=== PATIENT | female | born 1995 | race Caucasian/White ===

== ENCOUNTER 2018-09-08 14:16 | Emergency (ER) | payer MEDICAID, SELFPAY ==
[2018-09-08 14:16] VITALS: BP 153/85; PULSE 85; RESP 16; TEMP 36.4; O2SAT 100; BMI 54.3
--- NOTE | 2018-09-08 14:33 | ED.VISSUMM ---
- ER Visit Summary Date of Service: 09/08/18 Chief Complaint: [Pain, redness, swelling to left ring finger] History of Present Illness: The patient is a 23 F [Zentz to the emergency department swelling to her left ring finger that occurred starting last evening. Patient states that she was cutting the grass and she was reaching underneath a mower deck to unclog it when she kept getting poked with what she thought were sticks. Patient washed her hands afterwards and noted that she had some which she thought was may be a small hangnail that she picked that and pulled off. Patient had discomfort since that time. She denies any fevers. Not sure her last tetanus shot.] Physical Examination: [Left hand-patient has early evidence of paronychia to the medial aspect of the fingernail with faint erythema noted there is no abscess or purulent drainage from the nail noted. Neurovascular intact. No bony tenderness on exam. No lymphocytic streaking.] Test Results: [None indicated] Emergency Department Course and Treatment: [Patient was started on Keflex] Treatment Plan: [Patient to follow-up with primary care physician government relations manager for no doc within the next 3 to 5 days For a wound check.] Patient started on Keflex Disposition: [Discharged home in stable condition] Impression: [Paronychia left ring finger] This note was generated with [employer] dictation software. It may contain incorrect words, spelling, and punctuation that were not noted in review of the chart prior to signing ED Disposition - Plan for ED Patient: Referrals: Care Physician,No Primary [Primary Care Provider] -
--- NOTE | 2018-09-08 14:36 | ED.DCSUM_ITS ---
- ER Visit Summary Date of Service: 09/08/18 Chief Complaint: [Pain, redness, swelling to left ring finger] History of Present Illness: The patient is a 23 F [Zentz to the emergency department swelling to her left ring finger that occurred starting last evening. Patient states that she was cutting the grass and she was reaching underneath a mower deck to unclog it when she kept getting poked with what she thought were sticks. Patient washed her hands afterwards and noted that she had some which she thought was may be a small hangnail that she picked that and pulled off. Patient had discomfort since that time. She denies any fevers. Not sure her last tetanus shot.] Physical Examination: [Left hand-patient has early evidence of paronychia to the medial aspect of the fingernail with faint erythema noted there is no abscess or purulent drainage from the nail noted. Neurovascular intact. No bony tenderness on exam. No lymphocytic streaking.] Test Results: [None indicated] Emergency Department Course and Treatment: [Patient was started on Keflex] Treatment Plan: [Patient to follow-up with primary care physician websphere commerce consultant for no doc within the next 3 to 5 days For a wound check.] Patient started on Keflex Disposition: [Discharged home in stable condition] Impression: [Paronychia left ring finger] This note was generated with [employer] dictation software. It may contain incorrect words, spelling, and punctuation that were not noted in review of the chart prior to signing ED Disposition - Plan for ED Patient: Referrals: Care Physician,No Primary [Primary Care Provider] -
--- NOTE | 2018-09-08 14:36 | ED.DEP ---
ED Disposition - Plan for ED Patient: Instructions: ED Fingernail Infec Prescriptions: Cephalexin [Keflex] 500 mg PO Q6 #40 cap Referrals: Care Physician,No Primary [Primary Care Provider] - Marli Nolan MD [STAFF PHYSICIAN] - 3-5 Days
[2018-09-08] MEDS: Cephalexin 250 MG Capsule 500 MG PO (14:41)
== END 2018-09-08 14:42 | disposition home or self-care (01) ==
PROVIDERS: Emergency Provider Emergency Medicine
DX: L03.012 Cellulitis of left finger (principal); Z72.0 Tobacco use
CPT/HCPCS: 99283

== ENCOUNTER 2018-12-02 14:23 | Emergency (ER) | payer MEDICAID, SELFPAY ==
[2018-12-02 14:24] VITALS: BP 155/84; PULSE 99; RESP 16; TEMP 36.6; O2SAT 98; BMI 57.3
[2018-12-02 15:38] VITALS: PULSE 86; RESP 16; O2SAT 99
--- NOTE | 2018-12-02 15:56 | RAD_ITS ---
STUDY: X-RAY CHEST REASON FOR EXAM: Female, 23 years old. Palpitations TECHNIQUE: Portable chest COMPARISON: None. FINDINGS: The lungs are clear and expanded. There is no demonstrated pleural abnormality. Normal size heart. Normal mediastinum and ron. Normal visualized pulmonary arteries. Normal visualized aortic arch and descending thoracic aorta. Normal visualized thoracic spine. Normal visualized ribs, clavicles, and shoulders. There is no demonstrated abnormality of the visualized soft tissue structures of the upper abdomen. RAD/Chest 1 View (Portable) IMPRESSION: Normal x-ray examination of the chest. Electronically Signed: Scot Farley, at 16:20 EDT Tel , Service support ,
--- NOTE | 2018-12-02 15:57 | EKG12_ITS ---
Test Reason : PALPTATIONS Blood Pressure : / mmHG Vent. Rate : 078 BPM Atrial Rate : 078 BPM P-R Int : 176 ms QRS Dur : 102 ms QT Int : 366 ms P-R-T Axes : 033 061 059 degrees QTc Int : 417 ms Normal sinus rhythm with sinus arrhythmia Normal ECG Confirmed by ARAVIND CRENSHAW, TOBI ([id number]), editorial writer STEPHENIE UNDERWOOD ([id number]) on 12/06/2018 10:29:16 AM Referred By: Confirmed By:TOBI NAZARIO MD
--- NOTE | 2018-12-02 15:57 | ED.VISSUMM ---
- ER Visit Summary Date of Service: 12/02/18 Chief Complaint: Palpitations History of Present Illness: The patient is a 23 F presenting with palpitations. Patient states that she has had intermittent episodes of feeling like her heart is skipping a beat over the past 2 months. She states she has episodes lasting up to 30 seconds. She has chest pain and shortness of breath associated with this. She states the chest pain only lasts 30 seconds. She states that typically occurs at rest. She denies fever or cough. Denies increased caffeine intake. She denies syncope. Denies other complaints. Physical Examination: Vitals are stable. Patient is afebrile. Alert no acute distress. HEENT exam is unremarkable. Neck is supple. Lungs are clear and equal bilaterally. Heart is regular rate and rhythm. Abdomen is soft nontender nondistended. Extremities are unremarkable. Skin is warm and dry. No focal neurologic deficit. Remainder of exam is unremarkable. Emergency Department Course and Treatment: EKG is sinus rhythm rate of 78 with no acute ischemic changes. Chest x-ray shows no acute process. CBC, chemistries unremarkable. Troponin is negative. D-dimer normal. hCG negative. TSH 4.5. Patient is advised to follow-up with primary care physician. Advised return to ED for worsening complaints. Disposition: Discharge home Impression: Palpitations This note was generated with [employer] dictation software. It may contain incorrect words, spelling, and punctuation that were not noted in review of the chart prior to signing ED Disposition - Plan for ED Patient: Instructions: Palpitations Referrals: Kye Covington MD [STAFF PHYSICIAN] -
[2018-12-02 16:04] LABS: Absolute Lymphocyte Count 2.46 X10^3/uL (0.83-4.51); Basophil# 0.03 X10^3/uL; Basophil% 0.3 % (0-1); Eosinophil# 0.22 X10^3/uL; Eosinophils% 2.4 % (0-5); Hematocrit 37.5 % (37-47); Hemoglobin 12.1 g/dL (12.0-15.0); Internal QC Validated? YES +Cl - CLEAR BKGD; Lymphocyte # 2.46 X10^3/ul (4.0); Lymphocyte % 26.7 % (19-41); Mean Corp Hgb Conc 32.3 g/dL (32-36); Mean Corpuscular Hgb 26.8 pg (27.0-32.0); Mean Corpuscular Volume 83.1 fL (81-99); Mean Platelet Vol. 8.9 fl (6.2-12.0); Monocyte# 0.49 X10^3/uL; Monocyte% 5.3 % (0-10); NRBC Flagged by Analyzer 0 % (0-5); Neutrophil # 5.96 X10^3/uL (2.7-7.7); Neutrophil % 64.9 % (47-70); Platelet Count 382 K/mm3 (150-450); RBC Distribution Width CV 15.9 % (11.6-14.6); RBC Distribution Width SD 48.2 fl (35.1-43.9); Red Blood Count 4.51 M/mm3 (4.2-5.4); White Blood Count 9.2 K/mm3 (4.4-11.0)
[2018-12-02 16:09] LABS: Pregnancy, Serum, hCG Quali. NEGATIVE Negative
[2018-12-02 16:23] LABS: Anion Gap 7 (5-15); BUN 17 mg/dL (7-18); BUN/Creat Ratio 23.8 RATIO (10-20); Calcium,Total 8.9 mg/dL (8.5-10.1); Chloride 106 mmol/L (98-107); Creatinine, Serum 0.72 mg/dL (0.55-1.02); EST Glomerular Filtration Rate 109 mL/min (>60); Est Glom Filt Rate - Afr Amer 132 mL/min (>60); Estimated Creatinine Clearance 111.22 ml/min; Glucose 110 mg/dL (74-106); Potassium 3.6 mmol/L (3.5-5.1); Sodium Level 140 mmol/L (136-145); Thyroid Stim Hormone (TSH) 4.55 uIU/mL (0.358-3.74)
[2018-12-02 16:32] LABS: D-Dimer Quantitative (DVT/PE) 0.33 FEU/ug/m (0.27-0.49)
--- NOTE | 2018-12-02 17:24 | ED.DEP ---
ED Disposition - Plan for ED Patient: Instructions: Palpitations Referrals: Kye Covington MD [STAFF PHYSICIAN] -
[2018-12-02 17:42] VITALS: BP 145/67; PULSE 83; RESP 16; O2SAT 98
[2018-12-02 17:47] LABS: Color, Urine Yellow (Yellow); Glucose, Dipstick Normal (Normal); Ketone-Dipstick Negative (Negative); Leukocyte Esterase-Dipstick 500 /ul (Negative); Nitrite-Dipstick Negative (Negative); Occult Blood-Urine 250 /ul (Negative); Protein-Dipstick 15 mg/dl (Negative); Specific Gravity, Urine 1.025 (1.002-1.030); Urine Bilirubin Dipstick Negative (Negative); Urine Clarity Cloudy (Clear); Urine Urobilinogen Normal (Normal)
[2018-12-02 17:52] LABS: White Blood Cells 10-25 SEEN /hpf (0-5)
[2018-12-02 17:53] LABS: Bacteria 1+ /hpf (None Seen); Mucous, Urine 1+ /hpf (<or=2+); Red Blood Cells-Urine 0-5 SEEN /hpf (0-5); Squamous Epithelial Cells - UA 5-10 SEEN /hpf (5-10)
--- NOTE | 2018-12-02 18:02 | ED.DEP ---
ED Disposition - Plan for ED Patient: Instructions: Palpitations, Understanding Urinary Tract Infections (UTIs) Prescriptions: Smz/Tmp Ds [Bactrim Ds] 1 tablet PO BID #14 tablet Referrals: Kye Covington MD [STAFF PHYSICIAN] -
[2018-12-02] MEDS: Smz/Tmp Ds Tablet 1 TABLET PO (18:08)
== END 2018-12-02 18:09 | disposition home or self-care (01) ==
LOC: ED 16:10
PROVIDERS: Emergency Provider Emergency Medicine
DX: R00.2 Palpitations (principal); N39.0 Urinary tract infection, site not specified; R07.9 Chest pain, unspecified; R06.00 Dyspnea, unspecified; F32.9 Major depressive disorder, single episode, unspecified; F31.9 Bipolar disorder, unspecified; F41.9 Anxiety disorder, unspecified; F43.10 Post-traumatic stress disorder, unspecified; Z79.899 Other long term (current) drug therapy; Z72.0 Tobacco use
CPT/HCPCS: 71045; 80048; 81001; 84443; 84484; 84703; 85025; 85379; 93005; 99285; A4216

== ENCOUNTER → 2018-12-05 | Outpatient (CLI) | payer MEDICAID, SELFPAY ==
[2018-12-05 12:59] VITALS: BMI 51.5
[2018-12-05 16:20] LABS: Bacteria 0 SEEN /hpf (None Seen); Mucous, Urine 0 SEEN /hpf (<or=2+); Red Blood Cells-Urine 0 SEEN /hpf (0-5)
[2018-12-05 16:48] LABS: Color, Urine Yellow (Yellow); Glucose, Dipstick Normal (Normal); Ketone-Dipstick Negative (Negative); Leukocyte Esterase-Dipstick 100 /ul (Negative); Nitrite-Dipstick Negative (Negative); Occult Blood-Urine Negative /ul (Negative); Protein-Dipstick Negative (Negative); Urine Bilirubin Dipstick Negative (Negative); Urine Clarity Clear (Clear); Urine Urobilinogen Normal (Normal)
[2018-12-05 16:59] LABS: Squamous Epithelial Cells - UA 0-5 SEEN /hpf (5-10); White Blood Cells 0-5 SEEN /hpf (0-5)
[2018-12-05 17:00] LABS: Amorphous Sediment 1+
== END | disposition home or self-care (01) ==
LOC: LABSPEC 15:44
PROVIDERS: Family Provider Internal Medicine; PCP Internal Medicine; Referring Provider Internal Medicine; Visit Provider Internal Medicine
DX: N39.0 Urinary tract infection, site not specified (principal)
CPT/HCPCS: 81001; 87086

== ENCOUNTER → 2019-01-04 15:00 | Outpatient (CLI) | payer MEDICAID, SELFPAY ==
[2019-01-04 15:34] VITALS: BMI 51.5
[2019-01-05 10:24] LABS: Mucous, Urine 0 SEEN /hpf (<or=2+)
[2019-01-05 12:20] LABS: Color, Urine Yellow (Yellow); Glucose, Dipstick Normal (Normal); Ketone-Dipstick Negative (Negative); Leukocyte Esterase-Dipstick 500 /ul (Negative); Nitrite-Dipstick Negative (Negative); Occult Blood-Urine 250 /ul (Negative); Protein-Dipstick Negative (Negative); Specific Gravity, Urine 1.005 (1.002-1.030); Urine Bilirubin Dipstick Negative (Negative); Urine Clarity Clear (Clear); Urine Urobilinogen Normal (Normal); Urine pH 6.5 (5.0 - 8.0)
[2019-01-05 12:28] LABS: Red Blood Cells-Urine 0-5 SEEN /hpf (0-5); White Blood Cells 0-5 SEEN /hpf (0-5)
[2019-01-05 12:29] LABS: Bacteria 1+ /hpf (None Seen); Squamous Epithelial Cells - UA 0-5 SEEN /hpf (5-10)
== END ==
PROVIDERS: Family Provider Internal Medicine; PCP Internal Medicine; Visit Provider Internal Medicine
DX: R30.0 Dysuria (principal)
CPT/HCPCS: 81001; 87086; 87088

== ENCOUNTER → 2019-01-18 09:53 | Outpatient (CLI) | payer MEDICAID, SELFPAY ==
[2019-01-18 09:36] VITALS: BMI 51.5
[2019-01-18 12:14] LABS: Absolute Lymphocyte Count 2.51 X10^3/uL (0.83-4.51); Absolute Neutrophil Count 3.8 X10^3/uL (2.0-7.7); Basophil# 0.03 X10^3/uL; Basophil% 0.4 % (0-1); Eosinophil# 0.24 X10^3/uL; Eosinophils% 3.4 % (0-5); Hematocrit 38.9 % (37-47); Lymphocyte # 2.51 X10^3/ul (4.0); Lymphocyte % 35.5 % (19-41); Mean Corp Hgb Conc 30.8 g/dL (32-36); Mean Corpuscular Hgb 26.3 pg (27.0-32.0); Mean Corpuscular Volume 85.1 fL (81-99); Monocyte# 0.48 X10^3/uL; Monocyte% 6.8 % (0-10); NRBC Flagged by Analyzer 0 % (0-5); Neutrophil % 53.6 % (47-70); Platelet Count 383 K/mm3 (150-450); RBC Distribution Width CV 15.2 % (11.6-14.6); RBC Distribution Width SD 47.4 fl (35.1-43.9); Red Blood Count 4.57 M/mm3 (4.2-5.4); White Blood Count 7.1 K/mm3 (4.4-11.0)
[2019-01-18 12:48] LABS: Hemoglobin A1c 5.8 % (4.2-6.3); T4 Free Direct 0.99 ng/dL (0.76-1.46); Thyroid Stim Hormone (TSH) 7.73 uIU/mL (0.358-3.74)
== END ==
PROVIDERS: Family Provider Internal Medicine; PCP Internal Medicine; Visit Provider Internal Medicine
DX: F31.9 Bipolar disorder, unspecified (principal); N39.0 Urinary tract infection, site not specified; R73.9 Hyperglycemia, unspecified; R94.6 Abnormal results of thyroid function studies
CPT/HCPCS: 36415; 83036; 84439; 84443; 85025; 87086; 87088

== ENCOUNTER → 2019-02-07 13:40 | Outpatient (CLI) | payer MEDICAID, SELFPAY ==
[2018-12-05 12:59] VITALS: BMI 51.5
[2019-01-18 09:36] VITALS: BMI 51.5
--- NOTE | 2019-02-07 13:42 | US_ITS ---
STUDY: ULTRASOUND BREAST - LEFT REASON FOR EXAM: Female, 23 years old. TECHNIQUE: Axial and longitudinal images of the LEFT breast were performed with a high resolution ultrasound transducer. COMPARISON: None. FINDINGS: LEFT Breast: There is a lesion in the superior medial quadrant of the left breast which represents focal fibrocystic change and dilated ducts with some increased vascularity. No underlying malignant mass or lesion is seen.. US/Breast Limited Unilateral IMPRESSION: The palpable density in the left breast represents a combination of dilated ducts and increased vascularity and fibrocystic change but no underlying suspicious mass or lesion is seen. ASSESSMENT CATEGORY: BIRADS Category 2: Benign. A letter regarding these results will be sent to the patient by the facility within 30 days. Electronically Signed: Ciro Solis, at 17:38 EDT Tel , Service support ,
== END ==
PROVIDERS: Family Provider Internal Medicine; PCP Internal Medicine; Referring Provider Internal Medicine; Visit Provider Internal Medicine
DX: N64.4 Mastodynia (principal); N63.10 Unspecified lump in the right breast, unspecified quadrant; N63.20 Unspecified lump in the left breast, unspecified quadrant
CPT/HCPCS: 76642

== ENCOUNTER 2019-02-16 15:06 | Emergency (ER) | payer MEDICAID, SELFPAY ==
[2019-01-18 09:36] VITALS: BMI 51.5
[2019-02-16 15:08] VITALS: BP 158/111; PULSE 103; RESP 18; TEMP 36; O2SAT 98; BMI 58.4
--- NOTE | 2019-02-16 15:39 | ED.DCSUM_ITS ---
History of Present Illness Chief Complaint: Vag Bleeding Informant: Patient Onset: Days - Onset 6 days ago February 04 Context: Sudden Onset Timing: Continuous Quality: Pain and bleeding Location: Suprapubic and vaginal Current Severity: Moderate Maximum Severity: Moderate Worsened by: Nothing specific Relieved by: Nothing Associated Symptoms: Nothing Narrative: Patient is a 23-year-old G0, P0 female who has irregular periods who presents with vaginal bleeding since February 11. She states she leaned against the counter. She experienced pain. She felt like something moved and tore. She is had bleeding since. She states she has used 6 pads since this morning. She used 8 pads yesterday and 10 pads a day before. She has noted clots. She does report breast tenderness. She states she has breast tenderness because of cysts that were determined to be benign. She denies nausea, vomiting diarrhea. She does report intermittent dysuria felt to be secondary to overactive bladder. She denies any bowel symptoms. Did report orthostatic symptoms when she nando from sitting to standing position quickly. Prior similar symptoms: No Recent Illness/Hospitalization: No - Past Medical History (1) Overactive bladder Status: Acute (2) Anxiety Status: Chronic (3) Bipolar 1 disorder Status: Chronic (4) PTSD (post-traumatic stress disorder) Status: Chronic Past Medical History - Allergies and Home Meds Allergies/Adverse Reactions: Allergies lithium Adverse Reaction (Severe, Verified 02/16/19 15:07) lightheaded aripiprazole [From Abilify] Adverse Reaction (Mild, Verified 02/16/19 15:07) nightmares Primary Care Physician: Kye Covington MD [Primary Care Provider] - Prior records reviewed: Yes Surgical History: no surgical history Lives: With Family Smoking Status: Current every day smoker Alcohol: Rare Drugs: None - Family History Maternal Family History: Family History (Last Updated 12/05/18 @ 12:57 by Maude Rodriguez) Other Alcoholism Anxiety and depression Arthritis Asthma Breast cancer COPD (chronic obstructive pulmonary disease) CVA (cerebral vascular accident) Diabetes Heart disease Hyperlipemia Hypertension Melanoma Myocardial infarction Seizures Family History: Reports: - - she can't think of them now Paternal Family History: Family History (Last Updated 12/05/18 @ 12:57 by Maude Rodriguez) Other Alcoholism Anxiety and depression Arthritis Asthma Breast cancer COPD (chronic obstructive pulmonary disease) CVA (cerebral vascular accident) Diabetes Heart disease Hyperlipemia Hypertension Melanoma Myocardial infarction Seizures Family History: Reports: - - she can't think of them now Review of Systems General: Denies: Chills, Fever, Sweats Eyes: Denies: Visual changes - bilaterally, Blurred Vision - bilaterally, Diplopia ENT: Denies: Rhinorrhea, Sore throat Cardiovascular: Denies: Chest pain, Palpitations Respiratory: Denies: Dyspnea, Cough, Dyspnea on exertion Gastrointestinal: Reports: Abdominal pain - Region and right and left inguinal region. Patient states the inguinal discomfort secondary to ovarian cyst.. Denies: Nausea, Vomiting, Constipation, Melena, Hematochezia Genitourinary: Reports: Dysuria. Denies: Hematuria, Frequency Musculoskeletal: Denies: Back pain, Extremity Pain Skin: Denies: Rash, Wounds Neurological: Denies: Headache, Weakness, Numbness Psych: Reports: Depression Hematologic: Reports: Easy bruising. Denies: Easy bleeding Physical Exam Vital Signs/Narrative: Vital Signs Temp Pulse Resp BP Pulse Ox 02/16/19 15:08 96.8 F L 103 H 18 158/111 H 98 Inital Vital Signs reviewed: Yes General: Well nourished, Well developed, Obese, No Acute Distress Head: Normocephalic, Atraumatic Eyes: Perrl, EOMI. Negative for: Pale conjunctiva, Scleral icterus ENT: Moist mucous membranes, No rhinorrhea Neck: Supple, Nontender, No lymphadenopathy, No JVD Cardiovascular: Regular rate, Regular rhythm, No murmurs, Normal S1, Normal S2 Respiratory: No distress, CTA bilaterally, Chest nontender Abdomen: Soft, Nontender, Nondistended, Normal bowel sounds Back: Nontender, Normal Inspection Extremities: Nontender, No edema Skin: Normal color, No rash, Trauma - Multiple bruises are noted. Negative for: Cyanosis, Diaphoresis, Jaundice Neurological: Alert, Oriented x3, Cranial nerves II-XII grossly intact, Normal Strength, Normal Sensation Psychological: Normal affect Diagnostic/Tx/Re-eval Laboratory Results 02/16/19 02/16/19 16:00 16:00 WBC 8.4 RBC 4.39 Hgb 11.6 L Hct 36.7 L MCV 83.6 MCH 26.4 L MCHC 31.6 L RDW Std Deviation 46.3 H RDW Coeff of Edmund 15.2 H Plt Count 387 MPV 8.5 Immature Gran % (Auto) 0.500 Neut % (Auto) 66.3 Lymph % (Auto) 24.0 Rincon % (Auto) 6.2 Eos % (Auto) 2.5 Baso % (Auto) 0.5 Absolute Neuts (auto) 5.6 Absolute Lymphs (auto) 2.02 Nucleated RBC % 0 Serum , Qual NEGATIVE H&H is slightly low. test is negative. Prior hemoglobin was 12. This is insignificant and within lab error. - Medical Decision Making Function diagnosis abnormal vaginal bleeding, threatened AB, missed AB, cervical polyp. Because she complained of orthostatic symptoms will obtain H&H and will perform pelvic exam. Serum test was ordered. If test is positive or if there is any abnormality noted on bimanual exam will obtain ultrasound. Patient was informed of her results. She was informed to keep her appointment with Dr. Meagan Vázquez scheduled for 10 AM February 20 ED Disposition - Plan for ED Patient: Disposition: Home or Assisted Living Diagnosis: Abnormal vaginal bleeding Instructions: Dysfunctional Uterine Bleeding Referrals: Kye Covington MD [Primary Care Provider] - Additional Instructions: Keep your scheduled appointment with Dr. Meagan Vázquez for February 20, at 10 AM.
[2019-02-16 16:23] LABS: Absolute Lymphocyte Count 2.02 X10^3/uL (0.83-4.51); Absolute Neutrophil Count 5.6 X10^3/uL (2.0-7.7); Basophil# 0.04 X10^3/uL; Basophil% 0.5 % (0-1); Eosinophil# 0.21 X10^3/uL; Eosinophils% 2.5 % (0-5); Hematocrit 36.7 % (37-47); Hemoglobin 11.6 g/dL (12.0-15.0); Lymphocyte # 2.02 X10^3/ul (4.0); Mean Corp Hgb Conc 31.6 g/dL (32-36); Mean Corpuscular Hgb 26.4 pg (27.0-32.0); Mean Corpuscular Volume 83.6 fL (81-99); Mean Platelet Vol. 8.5 fl (6.2-12.0); Monocyte# 0.52 X10^3/uL; Monocyte% 6.2 % (0-10); NRBC Flagged by Analyzer 0 % (0-5); Neutrophil # 5.59 X10^3/uL (2.7-7.7); Neutrophil % 66.3 % (47-70); Platelet Count 387 K/mm3 (150-450); RBC Distribution Width CV 15.2 % (11.6-14.6); RBC Distribution Width SD 46.3 fl (35.1-43.9); Red Blood Count 4.39 M/mm3 (4.2-5.4); White Blood Count 8.4 K/mm3 (4.4-11.0)
[2019-02-16 16:59] LABS: Internal QC Validated? YES +Cl - CLEAR BKGD; Pregnancy, Serum, hCG Quali. NEGATIVE Negative
[2019-02-16 17:07] VITALS: BP 114/67; PULSE 78; RESP 18; O2SAT 99
== END 2019-02-16 17:30 | disposition home or self-care (01) ==
PROVIDERS: Emergency Provider Emergency Medicine; Family Provider Internal Medicine; PCP Internal Medicine
DX: N93.9 Abnormal uterine and vaginal bleeding, unspecified (principal); N64.59 Other signs and symptoms in breast; R10.31 Right lower quadrant pain; R10.32 Left lower quadrant pain; E66.9 Obesity, unspecified; T14.8XXA Other injury of unspecified body region, initial encounter; X58.XXXA Exposure to other specified factors, initial encounter; Y93.9 Activity, unspecified; Y92.9 Unspecified place or not applicable; N32.81 Overactive bladder; F41.9 Anxiety disorder, unspecified; F31.9 Bipolar disorder, unspecified; F32.9 Major depressive disorder, single episode, unspecified; F43.10 Post-traumatic stress disorder, unspecified; Z79.899 Other long term (current) drug therapy; F17.200 Nicotine dependence, unspecified, uncomplicated
CPT/HCPCS: 84703; 85025; 99283; A4216

== ENCOUNTER → 2019-02-19 15:03 | Outpatient (CLI) | payer MEDICAID, SELFPAY ==
[2019-02-16 15:08] VITALS: BMI 58.4
[2019-02-19 16:52] LABS: Thyroid Stim Hormone (TSH) 2.52 uIU/mL (0.358-3.74)
== END ==
PROVIDERS: Family Provider Internal Medicine; PCP Internal Medicine; Referring Provider Internal Medicine; Visit Provider Internal Medicine
DX: E03.9 Hypothyroidism, unspecified (principal)
CPT/HCPCS: 36415; 84443

== ENCOUNTER → 2019-02-20 12:37 | Outpatient (CLI) | payer MEDICAID, SELFPAY ==
[2019-02-20 09:59] VITALS: BMI 58.4
[2019-02-20 16:15] LABS: Chlamydia Trachomatis by PCR Negative (Negative); Neisserai gonorrhoeae by PCR Negative (Negative); Probe Check PASS; Sample Adequacy Control PASS; Specimen Processing Control PASS
[2019-02-22 15:35] LABS: HPV Reflexed? NOT INDICATED
== END ==
PROVIDERS: Family Provider Internal Medicine; PCP Internal Medicine; Referring Provider Nurse Practitioner Women's Health; Visit Provider Nurse Practitioner Women's Health
DX: Z11.3 Encounter for screening for infections with a predominantly sexual mode of transmission (principal); Z12.4 Encounter for screening for malignant neoplasm of cervix
CPT/HCPCS: 87491; 87591; 88175; G0145

== ENCOUNTER → 2019-03-02 13:14 | Outpatient (CLI) | payer MEDICAID, SELFPAY ==
[2019-02-20 09:59] VITALS: BMI 58.4
--- NOTE | 2019-03-02 13:16 | US_ITS ---
STUDY: ULTRASOUND OF THE FEMALE PELVIS - COMPLETE REASON FOR EXAM: Female, 24 years old. Menorrhagia TECHNIQUE: Transabdominal and Transvaginal TECHNICAL QUALITY: Adequate. COMPARISON: None. FINDINGS: The uterus is anteverted and is in a midline position. The uterus measures 7.7 x 5.0 x 4.4 cm. There is a Nabothian cyst of the cervix. The endometrium measures 5 mm in thickness, and is hyperechoic. There is no demonstrated endometrial mass. There is no demonstrated myometrial mass. The right ovary is visualized. The right ovary measures 3.4 x 2.2 x 2.1 cm. There is no right ovarian cyst or ovarian mass. There is no visualized right adnexal mass or complex lesion. There is normal arterial and normal venous vascularity. The left ovary is visualized. The left ovary measures 2.7 x 2.7 x 1.6 cm. There is no left ovarian cyst or ovarian mass. There is no visualized left adnexal mass or complex lesion. There is normal arterial and normal venous vascularity. There is no fluid in the cul-de-sac. US/Transvaginal Non- IMPRESSION: Normal female pelvis. Electronically Signed: Jay Chong, at 17:15 EST Tel , Service support ,
--- NOTE | 2019-03-02 13:16 | US_ITS ---
STUDY: ULTRASOUND OF THE FEMALE PELVIS - COMPLETE REASON FOR EXAM: Female, 24 years old. Menorrhagia TECHNIQUE: Transabdominal and Transvaginal TECHNICAL QUALITY: Adequate. COMPARISON: None. FINDINGS: The uterus is anteverted and is in a midline position. The uterus measures 7.7 x 5.0 x 4.4 cm. There is a Nabothian cyst of the cervix. The endometrium measures 5 mm in thickness, and is hyperechoic. There is no demonstrated endometrial mass. There is no demonstrated myometrial mass. The right ovary is visualized. The right ovary measures 3.4 x 2.2 x 2.1 cm. There is no right ovarian cyst or ovarian mass. There is no visualized right adnexal mass or complex lesion. There is normal arterial and normal venous vascularity. The left ovary is visualized. The left ovary measures 2.7 x 2.7 x 1.6 cm. There is no left ovarian cyst or ovarian mass. There is no visualized left adnexal mass or complex lesion. There is normal arterial and normal venous vascularity. There is no fluid in the cul-de-sac. US/Pelvic (Non ) IMPRESSION: Normal female pelvis. Electronically Signed: Jay Arlette, at 17:15 EST Tel , Service support ,
== END ==
PROVIDERS: Family Provider Internal Medicine; PCP Internal Medicine; Referring Provider Nurse Practitioner Women's Health; Visit Provider Nurse Practitioner Women's Health
DX: N92.1 Excessive and frequent menstruation with irregular cycle (principal)
CPT/HCPCS: 76830; 76856

== ENCOUNTER → 2019-03-14 13:15 | Outpatient (CLI) | payer MEDICAID, SELFPAY ==
[2019-03-08 14:35] VITALS: BMI 58.4
--- NOTE | 2019-03-14 13:19 | EKG12_ITS ---
Test Reason : PALP Blood Pressure : / mmHG Vent. Rate : 077 BPM Atrial Rate : 077 BPM P-R Int : 168 ms QRS Dur : 098 ms QT Int : 362 ms P-R-T Axes : 044 056 035 degrees QTc Int : 409 ms Normal sinus rhythm with sinus arrhythmia Normal ECG Confirmed by STANLEY CRENSHAW, JEAN ([id number]), video tape editor SERA ROE ([id number]) on 03/20/2019 1:15:31 PM Referred By: Kye Covington Confirmed By:ALLIE ANGEL MD
== END ==
PROVIDERS: Family Provider Internal Medicine; PCP Internal Medicine; Referring Provider Internal Medicine; Visit Provider Internal Medicine
DX: I10 Essential (primary) hypertension (principal)
CPT/HCPCS: 93005

== ENCOUNTER 2019-03-19 18:36 | Emergency (ER) | payer MEDICAID, SELFPAY ==
[2019-03-08 14:35] VITALS: BMI 58.4
[2019-03-19 18:37] VITALS: BP 171/101; PULSE 130; RESP 16; TEMP 36.8; O2SAT 98; BMI 57.2
[2019-03-19 18:58] VITALS: BP 155/89; PULSE 121; RESP 13; O2SAT 98
[2019-03-19 19:55] LABS: Absolute Lymphocyte Count 1.51 X10^3/uL (0.83-4.51); Absolute Neutrophil Count 6.4 X10^3/uL (2.0-7.7); Basophil# 0.04 X10^3/uL; Basophil% 0.5 % (0-1); Eosinophils% 1.2 % (0-5); Hematocrit 38.1 % (37-47); Hemoglobin 11.9 g/dL (12.0-15.0); Lymphocyte # 1.51 X10^3/ul (4.0); Lymphocyte % 17.6 % (19-41); Mean Corp Hgb Conc 31.2 g/dL (32-36); Mean Corpuscular Hgb 26.2 pg (27.0-32.0); Mean Corpuscular Volume 83.7 fL (81-99); Mean Platelet Vol. 8.8 fl (6.2-12.0); Monocyte# 0.48 X10^3/uL; Monocyte% 5.6 % (0-10); NRBC Flagged by Analyzer 0 % (0-5); Neutrophil % 74.7 % (47-70); Platelet Count 433 K/mm3 (150-450); RBC Distribution Width CV 15.1 % (11.6-14.6); RBC Distribution Width SD 45.9 fl (35.1-43.9); Red Blood Count 4.55 M/mm3 (4.2-5.4); White Blood Count 8.6 K/mm3 (4.4-11.0)
[2019-03-19 20:05] LABS: Anion Gap 6 (5-15); BUN 12 mg/dL (7-18); Chloride 109 mmol/L (98-107); EST Glomerular Filtration Rate 96 mL/min (>60); Est Glom Filt Rate - Afr Amer 116 mL/min (>60); Estimated Creatinine Clearance 99.26 ml/min; Glucose 117 mg/dL (74-106); Potassium 3.8 mmol/L (3.5-5.1); Sodium Level 140 mmol/L (136-145)
[2019-03-19 20:06] LABS: Internal QC Validated? YES +Cl - CLEAR BKGD; Pregnancy, Urine Negative Negative
[2019-03-19 20:26] LABS: Prothrombin Time (Protime)PT. 12.7 SECONDS (11.7-14.9)
[2019-03-19 20:48] VITALS: PULSE 102; RESP 21; O2SAT 99
--- NOTE | 2019-03-19 20:50 | ED.DCSUM_ITS ---
History of Present Illness Chief Complaint: Vag Bleeding Informant: Patient Narrative: Patient presenting for evaluation secondary to vaginal bleeding. Patient has a history of a recent work-up for menorrhagia. Patient saw PATENT LEGAL ASSISTANT for this and was placed on a course of norethindrone. She states that her vaginal bleeding did stop after this, but she has 2 days left on her prescription and she started bleeding again 2 days ago. Patient states that the bleeding is heavy. She reports that she is going through approximately 1 pad an hour, and does report that it feels soaked. She endorses that she has some vaginal pain and rectal pain associated with this. She denies any lightheadedness chest pain or shortness of breath. She denies that she has any bleeding dyscrasias. Patient reports that she called the PATENT LEGAL ASSISTANT office, and was told that due to the fact that they are not in the office that she should come to the emergency department. Review of systems otherwise negative. Past Medical History - Allergies and Home Meds Allergies/Adverse Reactions: Allergies lithium Adverse Reaction (Severe, Verified 03/19/19 18:37) lightheaded aripiprazole [From Abilify] Adverse Reaction (Mild, Verified 03/19/19 18:37) nightmares Primary Care Physician: Kye Covington MD [Primary Care Provider] - Past Medical History: - - Depression, palpitations Surgical History: no surgical history Smoking Status: Current every day smoker - Family History Maternal Family History: Family History (Last Reviewed 03/08/19 @ 14:34 by Maude Rodriguez) Other Alcoholism Anxiety and depression Arthritis Asthma Breast cancer COPD (chronic obstructive pulmonary disease) CVA (cerebral vascular accident) Diabetes Heart disease Hyperlipemia Hypertension Melanoma Myocardial infarction Seizures Family History: Reports: - - she can't think of them now Paternal Family History: Family History (Last Reviewed 03/08/19 @ 14:34 by Maude Rodriguez) Other Alcoholism Anxiety and depression Arthritis Asthma Breast cancer COPD (chronic obstructive pulmonary disease) CVA (cerebral vascular accident) Diabetes Heart disease Hyperlipemia Hypertension Melanoma Myocardial infarction Seizures Family History: Reports: - - she can't think of them now Review of Systems All systems negative except as indicated General: Denies: Chills, Fever, Sweats Eyes: Denies: Visual changes - bilaterally, Diplopia ENT: Denies: Rhinorrhea, Sore throat Cardiovascular: Reports: Palpitations Respiratory: Denies: Dyspnea, Cough, Dyspnea on exertion Gastrointestinal: Denies: Abdominal pain, Nausea, Vomiting, Diarrhea, Melena, Hematochezia Genitourinary: Reports: - - Vaginal bleeding Musculoskeletal: Denies: Back pain, Extremity Pain Skin: Denies: Rash, Wounds Neurological: Denies: Headache, Weakness, Numbness Psych: Denies: Depression Hematologic: Denies: Easy bruising, Easy bleeding Physical Exam Vital Signs/Narrative: Vital Signs Temp Pulse Resp BP Pulse Ox 03/19/19 20:48 102 H 21 H 99 03/19/19 18:58 121 H 13 155/89 H 98 03/19/19 18:37 98.2 F 130 H 16 171/101 H 98 Inital Vital Signs reviewed: Yes General: Obese Head: Normocephalic, Atraumatic Eyes: Perrl, EOMI ENT: Moist mucous membranes, No rhinorrhea Neck: Supple, Nontender Cardiovascular: Regular rhythm, No murmurs, Tachycardia Respiratory: No distress, CTA bilaterally, Chest nontender Abdomen: Soft, Nontender, Nondistended, Normal bowel sounds : Speculum exam: Normal external genitalia, No vaginal lesions, No vaginal discharge, Mild active bleeding Back: Nontender, Normal Inspection Extremities: Nontender, No edema Skin: Normal color, No rash Neurological: Alert, Oriented x3, Cranial nerves II-XII grossly intact, Normal Strength, Normal Sensation Psychological: Normal affect Diagnostic/Tx/Re-eval - Medical Decision/Diagnostic Studies Patient presented for evaluation secondary to vaginal bleeding. She on initial presentation was noted to be tachycardic with a heart rate in the 130s so IV was established laboratories were immediately obtained. Patient was found to have a hemoglobin of 11.9, and otherwise unremarkable laboratory work-up with a negative test. Patient's heart rate without intervention did come down to 100. I interviewed patient, and she tells me that she has a history of having palpitations in the past, and currently is undergoing work-up for this and it is not abnormal for her to have tachycardia like this. Patient has not been hypotensive in the emergency department. Her pelvic exam demonstrated only mild bleeding. I discussed patient's case with covering PATENT LEGAL ASSISTANT who incidentally was the PATENT LEGAL ASSISTANT office that saw the patient. They recommended starting the patient on a course of Provera. Patient will follow-up in the PATENT LEGAL ASSISTANT office in 2 weeks. Disposition: Home ED Disposition - Plan for ED Patient: Disposition: Home or Assisted Living Diagnosis: Menorrhagia Instructions: Menorrhagia Prescriptions: Medroxyprogesterone Acetate [Provera] 10 mg PO UD #30 tab Prescription Printed Referrals: Meagan Vázquez MD [STAFF PHYSICIAN] - (2 Weeks)
[2019-03-19] MEDS: 0.9% Normal Saline 1,000 ML 999 ML IV (20:53)
[2019-03-19 21:15] VITALS: BP 146/88; PULSE 101; RESP 15; O2SAT 100
== END 2019-03-19 21:25 | disposition home or self-care (01) ==
PROVIDERS: Emergency Provider Emergency Medicine; Family Provider Internal Medicine; PCP Internal Medicine
DX: N92.0 Excessive and frequent menstruation with regular cycle (principal); F32.9 Major depressive disorder, single episode, unspecified; R00.2 Palpitations; Z79.899 Other long term (current) drug therapy; F17.200 Nicotine dependence, unspecified, uncomplicated
CPT/HCPCS: 80048; 81025; 85025; 85610; 85730; 86850; 86900; 86901; 99285; J7030; A4216

== ENCOUNTER → 2019-03-31 11:06 | Outpatient (CLI) | payer MEDICAID, SELFPAY ==
[2019-03-19 18:37] VITALS: BMI 57.2
[2019-03-31 12:30] LABS: Hemoglobin A1c 5.2 % (4.2-6.3)
[2019-03-31 12:31] LABS: Anion Gap 7 (5-15); BUN 15 mg/dL (7-18); BUN/Creat Ratio 21.5 RATIO (10-20); Calcium,Total 8.9 mg/dL (8.5-10.1); Chloride 107 mmol/L (98-107); Cholesterol 125 mg/dL (200); EST Glomerular Filtration Rate 111 mL/min (>60); Est Glom Filt Rate - Afr Amer 135 mL/min (>60); Glucose 94 mg/dL (74-106); High Density Lipoprotein 29 mg/dL; Potassium 4.1 mmol/L (3.5-5.1); Sodium Level 139 mmol/L (136-145); Triglycerides 122 mg/dL; Very Low Density Lipoprotein 24 mg/dL (5-40)
== END ==
PROVIDERS: Family Provider Internal Medicine; PCP Internal Medicine; Referring Provider Internal Medicine; Visit Provider Internal Medicine
DX: I10 Essential (primary) hypertension (principal); E66.01 Morbid (severe) obesity due to excess calories; Z68.43 Body mass index [BMI] 50.0-59.9, adult
CPT/HCPCS: 36415; 80048; 80061; 83036

== ENCOUNTER 2019-04-13 22:35 | Emergency (ER) | payer MEDICAID, SELFPAY ==
[2019-04-12 10:08] VITALS: BMI 57.2
[2019-04-13 22:36] VITALS: BP 169/96; PULSE 115; RESP 16; TEMP 37.1; O2SAT 100; BMI 58.9
[2019-04-13 22:45] VITALS: BP 156/82; PULSE 94; O2SAT 100
--- NOTE | 2019-04-13 22:54 | RAD_ITS ---
HISTORY: PT WAS AT WORK GRILLING AND DEVELOPED CP, DIZZINESS AND NAUSEA EXAM: XR Chest 2 Views: COMPARISON: December 02, 2018 FINDINGS: # of images incl. paperwork: 2 Lungs are clear. Heart is not enlarged. No acute osseous pathology perceived. Pulmonary vascularity is distinct. No effusions. RAD/Chest PA and Lateral IMPRESSION: Normal. at [id number] Reported and signed by: Grabiel Mendieta MD Electronically Signed: Grabiel Mendieta MD at 23:25 EST Tel , Service support ,
--- NOTE | 2019-04-13 22:54 | EKG12_ITS ---
Test Reason : CP Blood Pressure : / mmHG Vent. Rate : 113 BPM Atrial Rate : 113 BPM P-R Int : 164 ms QRS Dur : 098 ms QT Int : 326 ms P-R-T Axes : 045 071 043 degrees QTc Int : 447 ms Sinus tachycardia with occasional Premature ventricular complexes Otherwise normal ECG Confirmed by YAMILEX DUVAL ([id number]), greeting card editor MARKO MUNIZ ([id number]) on 04/18/2019 1:04:46 PM Referred By: Confirmed By:YAMILEX DUVAL
--- NOTE | 2019-04-13 22:54 | ED.DCSUM_ITS ---
History of Present Illness Chief Complaint: Chest Pain Narrative: Patient is a 24-year-old female who presents with multiple complaints. While at work performing light activity she began to feel nauseated and confused. She developed palpitations. She also felt dizzy. She then developed a central chest pressure as well as a sharp pleuritic chest pain and shortness of breath. She actually notes that she has had identical episodes on 4 or 5 previous occasions with multiple ER visits for the same. Initially her symptoms were attributed to anxiety. She also has been started on medications for hypertension. She is on an oral contraceptive. She denies any recent travel, surgery, known coagulopathies, leg pain or swelling. She denies history of DVT or pulmonary embolism. Currently her symptoms have improved. Past Medical History - Allergies and Home Meds Allergies/Adverse Reactions: Allergies lithium Adverse Reaction (Severe, Verified 04/13/19 22:38) lightheaded aripiprazole [From Abilify] Adverse Reaction (Mild, Verified 04/13/19 22:38) nightmares Primary Care Physician: Kye Covington MD [Primary Care Provider] - Past Medical History: - - Anxiety, hypothyroidism, hypertension Surgical History: no surgical history Smoking Status: Never smoker - Family History Maternal Family History: Family History (Last Reviewed 03/08/19 @ 14:34 by Maude Rodriguez) Other Alcoholism Anxiety and depression Arthritis Asthma Breast cancer COPD (chronic obstructive pulmonary disease) CVA (cerebral vascular accident) Diabetes Heart disease Hyperlipemia Hypertension Melanoma Myocardial infarction Seizures Family History: Reports: - - she can't think of them now Paternal Family History: Family History (Last Reviewed 03/08/19 @ 14:34 by Maude Rodriguez) Other Alcoholism Anxiety and depression Arthritis Asthma Breast cancer COPD (chronic obstructive pulmonary disease) CVA (cerebral vascular accident) Diabetes Heart disease Hyperlipemia Hypertension Melanoma Myocardial infarction Seizures Family History: Reports: - - she can't think of them now Review of Systems All systems negative except as indicated General: Denies: Fever Eyes: Denies: Visual changes - bilaterally ENT: Denies: Bilateral ear pain Cardiovascular: Reports: Chest pain, Palpitations Respiratory: Reports: Dyspnea Gastrointestinal: Reports: Nausea Musculoskeletal: Denies: Myalgias, Arthralgias Skin: Denies: Rash Neurological: Reports: - - Dizziness. Denies: Headache Hematologic: Denies: Easy bruising, Easy bleeding Allergy: Denies: Uticaria Physical Exam Vital Signs/Narrative: Vital Signs Temp Pulse Resp BP Pulse Ox 04/13/19 22:45 94 156/82 H 100 04/13/19 22:36 98.7 F 115 H 16 169/96 H 100 Inital Vital Signs reviewed: Yes General: Well nourished, Obese Head: Normocephalic Eyes: EOMI ENT: Moist mucous membranes Neck: Supple Cardiovascular: - - Heart is regular tachycardia without murmur, gallop, rub Respiratory: No distress, CTA bilaterally Abdomen: Soft, Nontender Extremities: Nontender, No edema Skin: Normal color Neurological: Alert Psychological: - - Anxious Diagnostic/Tx/Re-eval Impressions Chest X-Ray 04/13/19 22:54 IMPRESSION: Normal. at 2326 Reported and signed by: Grabiel Mendieta MD Electronically Signed: Grabiel Mendieta MD at 23:25 EST Tel , Service support , 04/13/19 22:54 Chest PA and Lateral [RAD] Stat Laboratory Results 04/13/19 04/13/19 04/13/19 22:45 22:45 22:45 WBC 9.9 RBC 4.50 Hgb 11.7 L Hct 36.5 L MCV 81.1 MCH 26.0 L MCHC 32.1 RDW Std Deviation 42.0 RDW Coeff of Edmund 14.4 Plt Count 406 MPV 9.0 Immature Gran % (Auto) 0.100 Neut % (Auto) 58.6 Lymph % (Auto) 32.4 [place] % (Auto) 6.8 Eos % (Auto) 1.8 Baso % (Auto) 0.3 Absolute Neuts (auto) 5.8 Absolute Lymphs (auto) 3.19 Nucleated RBC % 0 PT 13.3 INR 1.0 D-Dimer Quant (PE/DVT) 0.28 Sodium 141 Potassium 3.9 Chloride 107 Carbon Dioxide 26.0 Anion Gap 8 BUN 17 Creatinine 0.91 Estim Creat Clear Calc 87.26 Est GFR (MDRD) Af Amer 100 Est GFR (MDRD) Non-Af 82 BUN/Creatinine Ratio 18.7 Glucose 98 Calcium 9.4 Troponin I < 0.015 - Medical Decision Making EKG shows sinus tachycardia at a rate of 113 with a single PVC, no acute ischemic changes. Laboratory studies are unremarkable with a negative troponin and normal d-dimer. Chest x-ray is normal. On reevaluation patient is resting comfortably and heart rate is 85. Given that she has had multiple prior similar episodes I advised that she follow-up as an outpatient. She may need further outpatient work-up such as Holter monitoring. However at this time she does not appear to have an acute life-threatening process and I do believe she can be safely discharged home but she does understand to return for any new or worsening symptoms and was instructed on signs and symptoms to monitor for. She was discharged. ED Disposition - Plan for ED Patient: Disposition: Home or Assisted Living Diagnosis: Chest pain, Palpitations Instructions: Palpitations, CHEST PAIN, Uncertain Cause Referrals: Kye Covington MD [Primary Care Provider] -
[2019-04-13 23:10] LABS: Absolute Lymphocyte Count 3.19 X10^3/uL (0.83-4.51); Absolute Neutrophil Count 5.8 X10^3/uL (2.0-7.7); Basophil# 0.03 X10^3/uL; Basophil% 0.3 % (0-1); Eosinophil# 0.18 X10^3/uL; Eosinophils% 1.8 % (0-5); Hematocrit 36.5 % (37-47); Hemoglobin 11.7 g/dL (12.0-15.0); Lymphocyte # 3.19 X10^3/ul (4.0); Lymphocyte % 32.4 % (19-41); Mean Corp Hgb Conc 32.1 g/dL (32-36); Mean Corpuscular Volume 81.1 fL (81-99); Monocyte# 0.67 X10^3/uL; Monocyte% 6.8 % (0-10); NRBC Flagged by Analyzer 0 % (0-5); Neutrophil # 5.78 X10^3/uL (2.7-7.7); Neutrophil % 58.6 % (47-70); Platelet Count 406 K/mm3 (150-450); RBC Distribution Width CV 14.4 % (11.6-14.6); White Blood Count 9.9 K/mm3 (4.4-11.0)
[2019-04-13 23:14] LABS: Prothrombin Time (Protime)PT. 13.3 SECONDS (11.7-14.9)
[2019-04-13 23:19] LABS: D-Dimer Quantitative (DVT/PE) 0.28 FEU/ug/m (0.27-0.49)
[2019-04-13 23:34] LABS: Anion Gap 8 (5-15); BUN 17 mg/dL (7-18); BUN/Creat Ratio 18.7 RATIO (10-20); Calcium,Total 9.4 mg/dL (8.5-10.1); Chloride 107 mmol/L (98-107); Creatinine, Serum 0.91 mg/dL (0.55-1.02); EST Glomerular Filtration Rate 82 mL/min (>60); Est Glom Filt Rate - Afr Amer 100 mL/min (>60); Estimated Creatinine Clearance 87.26 ml/min; Glucose 98 mg/dL (74-106); Potassium 3.9 mmol/L (3.5-5.1); Sodium Level 141 mmol/L (136-145)
[2019-04-14 00:01] VITALS: BP 154/71; PULSE 83; RESP 20; O2SAT 98
== END 2019-04-14 00:02 | disposition home or self-care (01) ==
PROVIDERS: Emergency Provider Emergency Medicine; Family Provider Internal Medicine; PCP Internal Medicine
DX: R07.9 Chest pain, unspecified (principal); I49.3 Ventricular premature depolarization; R00.2 Palpitations; R42 Dizziness and giddiness; R07.81 Pleurodynia; I10 Essential (primary) hypertension; E03.9 Hypothyroidism, unspecified; R00.0 Tachycardia, unspecified; R06.02 Shortness of breath; F41.9 Anxiety disorder, unspecified; Z79.3 Long term (current) use of hormonal contraceptives; Z79.899 Other long term (current) drug therapy
CPT/HCPCS: 71046; 80048; 84484; 85025; 85379; 85610; 93005; 99285; A4216

== ENCOUNTER → 2019-06-27 10:24 | Outpatient (CLI) | payer MEDICAID, SELFPAY ==
[2019-06-13 15:12] VITALS: BMI 58.9
[2019-06-27 12:26] LABS: Anion Gap 5 (5-15); BUN 20 mg/dL (7-18); BUN/Creat Ratio 24.1 RATIO (10-20); Calcium,Total 8.9 mg/dL (8.5-10.1); Chloride 107 mmol/L (98-107); Creatinine, Serum 0.83 mg/dL (0.55-1.02); EST Glomerular Filtration Rate 91 mL/min (>60); Est Glom Filt Rate - Afr Amer 110 mL/min (>60); Glucose 87 mg/dL (74-106); Potassium 4.1 mmol/L (3.5-5.1); Sodium Level 140 mmol/L (136-145)
== END ==
PROVIDERS: Nurse Practitioner Family; PCP Internal Medicine; Referring Provider Internal Medicine; Visit Provider Internal Medicine
DX: I10 Essential (primary) hypertension (principal)
CPT/HCPCS: 36415; 80048

== ENCOUNTER → 2019-08-22 08:31 | Outpatient (CLI) | payer MEDICAID, SELFPAY ==
[2019-06-01 16:22] VITALS: BMI 58.9
[2019-08-02 17:19] VITALS: BMI 58.9
--- NOTE | 2019-08-22 10:04 | NEURO ---
NCS and/or EMG Patient Report Ordering Doctor: Gustabo Moya DATE OF SERVICE: 08/22/19 Duyen Ceja is a 24-year-old female presents for electrodiagnostic testing of the upper limbs. She reports numbness and tingling in both hands, worse on the right side. Electrodiagnostic findings: Median motor nerve demonstrates normal distal latency, amplitude and conduction velocity bilaterally. Normal ulnar motor response bilaterally. Normal median ulnar F wave. Prolonged median sensory latency at the wrist bilaterally. Prolonged right median palmar latency. Ulnar and radial sensory responses are within normal limits. On needle EMG, all muscles tested in the upper limb showed no evidence of denervation with normal motor unit action potentials. Electrodiagnostic impression: This is an abnormal study in the upper limbs. 1. Electrodiagnostic findings demonstrate bilateral median mononeuropathy. This is consistent with a mild bilateral carpal tunnel syndrome. If there are any further questions, please do not hesitate to contact me.
== END ==
PROVIDERS: PCP Internal Medicine; Referring Provider Nurse Practitioner Family; Visit Provider Nurse Practitioner Family
DX: R20.0 Anesthesia of skin (principal); R20.2 Paresthesia of skin
CPT/HCPCS: 95886; 95913

== ENCOUNTER → 2019-09-11 08:52 | Outpatient (CLI) | payer MEDICAID, SELFPAY ==
[2019-09-11 08:42] VITALS: BMI 56.5
--- NOTE | 2019-09-11 08:53 | RAD_ITS ---
STUDY: X-RAY - RIGHT WRIST REASON FOR EXAM: Bilateral wrist pain, no specific injury. TECHNIQUE: 3 view(s) of the wrist were obtained. COMPARISON: None. FINDINGS: Normal visualized distal radius and ulna. Normal radiocarpal articulation. Normal distal radioulnar articulation. Normal carpal bones. Normal carpal articulations. Normal carpometacarpal articulation of the thumb. Normal second through fifth carpometacarpal articulations. Normal visualized metacarpal bones. The soft tissue structures are unremarkable. RAD/Wrist min 3 Views IMPRESSION: Normal x-ray examination of the right wrist. Electronically Signed: Ronen Perrin MD at 10:27 EDT Tel , Service support ,
--- NOTE | 2019-09-11 08:53 | RAD_ITS ---
STUDY: X-RAY - CERVICAL SPINE REASON FOR EXAM: Female, 24 years old. NECK PAIN, NO INJURY TECHNIQUE: 3 view(s) of the cervical spine were obtained. COMPARISON: None FINDINGS: Normal anterior atlantoaxial articulation. Normal odontoid process. There is reversal of the normal cervical lordosis. Normal vertebral bodies and endplates. Normal disc space heights. Normal visualized intervertebral neuroforamina. The soft tissue structures are unremarkable. There is no demonstrated fracture of the cervical spine. RAD/Cerv Spine 4 or 5 Views IMPRESSION: No fracture. Reversal of the cervical lordosis. Disc spaces are well-preserved. Electronically Signed: Luis Garcia MD at 10:18 EDT , Service support ,
--- NOTE | 2019-09-11 08:53 | RAD_ITS ---
STUDY: X-RAY - LEFT WRIST REASON FOR EXAM: Bilateral wrist pain, no specific injury. TECHNIQUE: 3 view(s) of the wrist were obtained. COMPARISON: Radiographs 11/24/2011. FINDINGS: Normal visualized distal radius and ulna. Normal radiocarpal articulation. Normal distal radioulnar articulation. Normal carpal bones. Normal carpal articulations. Normal carpometacarpal articulation of the thumb. Normal second through fifth carpometacarpal articulations. Normal visualized metacarpal bones. The soft tissue structures are unremarkable. RAD/Wrist min 3 Views IMPRESSION: Normal x-ray examination of the left wrist. Electronically Signed: Ronen Perrin MD at 10:55 EDT Tel , Service support ,
== END ==
PROVIDERS: PCP Internal Medicine; Referring Provider Orthopaedic Surgery; Visit Provider Orthopaedic Surgery
DX: M79.601 Pain in right arm (principal); M79.602 Pain in left arm; M79.641 Pain in right hand; M79.642 Pain in left hand
CPT/HCPCS: 72050; 73110

== ENCOUNTER → 2020-05-13 11:48 | Outpatient (CLI) | payer MEDICAID, SELFPAY ==
[2020-05-13 11:06] VITALS: BMI 54.7
[2020-05-13 15:40] LABS: Absolute Lymphocyte Count 1.95 X10^3/uL (0.83-4.51); Absolute Neutrophil Count 5.5 X10^3/uL (2.0-7.7); Basophil# 0.03 X10^3/uL; Basophil% 0.4 % (0-1); Eosinophil# 0.16 X10^3/uL; Hematocrit 42.2 % (37-47); Hemoglobin 13.4 g/dL (12.0-15.0); Lymphocyte # 1.95 X10^3/ul (4.0); Lymphocyte % 23.8 % (19-41); Mean Corp Hgb Conc 31.8 g/dL (32-36); Mean Corpuscular Hgb 26.9 pg (27.0-32.0); Mean Corpuscular Volume 84.7 fL (81-99); Mean Platelet Vol. 9.3 fl (6.2-12.0); Monocyte# 0.57 X10^3/uL; NRBC Flagged by Analyzer 0 % (0-5); Neutrophil # 5.45 X10^3/uL (2.7-7.7); Neutrophil % 66.4 % (47-70); Platelet Count 417 K/mm3 (150-450); RBC Distribution Width CV 14.1 % (11.6-14.6); RBC Distribution Width SD 43.4 fl (35.1-43.9); Red Blood Count 4.98 M/mm3 (4.2-5.4); White Blood Count 8.2 K/mm3 (4.4-11.0)
[2020-05-13 17:07] LABS: ALB/GLOB Ratio 0.8 RATIO (0.9-2.4); AST(SGOT) 15 U/L (15-37); Alanine Aminotransfer ALT/SGPT 27 U/L (13-56); Albumin, Serum 3.6 g/dL (3.2-5.0); Alkaline Phosphatase 127 U/L (45-117); Anion Gap 8 (5-15); BUN 14 mg/dL (7-18); BUN/Creat Ratio 17.9 RATIO (10-20); Calcium,Total 8.9 mg/dL (8.5-10.1); Chloride 107 mmol/L (98-107); Cholesterol 144 mg/dL (200); Creatinine, Serum 0.78 mg/dL (0.55-1.02); EST Glomerular Filtration Rate 97 mL/min (>60); Est Glom Filt Rate - Afr Amer 117 mL/min (>60); Globulin 4.3 g/dL (2.2-4.2); Glucose 99 mg/dL (74-106); High Density Lipoprotein 33 mg/dL; Protein, Total 7.9 g/dL (6.4-8.2); Sodium Level 139 mmol/L (136-145); Thyroid Stim Hormone (TSH) 3.15 uIU/mL (0.358-3.74); Triglycerides 155 mg/dL; Very Low Density Lipoprotein 31 mg/dL (5-40)
== END ==
PROVIDERS: PCP Internal Medicine; Referring Provider Nurse Practitioner Family; Visit Provider Nurse Practitioner Family
DX: I10 Essential (primary) hypertension (principal); F31.9 Bipolar disorder, unspecified; F41.9 Anxiety disorder, unspecified; F43.10 Post-traumatic stress disorder, unspecified
CPT/HCPCS: 36415; 80053; 80061; 84443; 85025

== ENCOUNTER → 2020-06-04 12:09 | Outpatient (CLI) | payer MEDICAID, SELFPAY ==
[2020-06-04 11:15] VITALS: BMI 56.1
[2020-06-12 12:08] LABS: Dopamine, Pl <30 pg/mL (0-48); Epinephrine, Pl <15 pg/mL (0-62); Norepinephrine, Pl 472 pg/mL (0-874)
[2020-06-12 15:24] LABS: Renin, Plasma 1.762 ng/mL/hr (0.167-5.380)
== END ==
PROVIDERS: PCP Internal Medicine; Referring Provider Internal Medicine Cardiovascular Disease; Visit Provider Internal Medicine Cardiovascular Disease
DX: I10 Essential (primary) hypertension (principal)
CPT/HCPCS: 36415; 82384; 84244

== ENCOUNTER 2020-08-31 17:08 | Emergency (ER) | payer MEDICAID, SELFPAY ==
[2020-06-04 11:15] VITALS: BMI 56.1
[2020-08-31 17:09] VITALS: BP 153/90; PULSE 134; RESP 22; TEMP 36.2; O2SAT 100; BMI 54.6
--- NOTE | 2020-08-31 17:36 | RAD_ITS ---
INDICATION: chest pain EXAMINATION/TECHNIQUE: X-RAY - XR Chest 1 View COMPARISON: 04/13/2019. FINDINGS: The lungs are clear. The cardiomediastinal silhouette is unremarkable. No pleural effusion or pneumothorax. No acute osseous abnormalities. RAD/Chest 1 View (Portable) IMPRESSION: No acute radiographic abnormalities. Electronically Signed: Rodrigue Caraballo MD at 18:23 EDT Tel , Service support ,
--- NOTE | 2020-08-31 17:36 | EKG12_ITS ---
Test Reason : PALPS Blood Pressure : / mmHG Vent. Rate : 100 BPM Atrial Rate : 100 BPM P-R Int : 162 ms QRS Dur : 100 ms QT Int : 354 ms P-R-T Axes : 043 072 056 degrees QTc Int : 456 ms Normal sinus rhythm Normal ECG Confirmed by ARAVIND CRENSHAW, TOBI ([id number]), editorial project manager STEPHENIE UNDERWOOD ([id number]) on 09/03/2020 8:46:54 AM Referred By: ZEINAB Confirmed By:TOBI NAZARIO MD
[2020-08-31 17:48] LABS: Mucous, Urine 0 SEEN /hpf (<or=2+); Red Blood Cells-Urine 0 SEEN /hpf (0-5)
[2020-08-31 17:49] LABS: Color, Urine Straw (Yellow); Glucose, Dipstick Normal (Normal); Ketone-Dipstick Negative (Negative); Leukocyte Esterase-Dipstick 500 /ul (Negative); Nitrite-Dipstick Negative (Negative); Occult Blood-Urine Negative /ul (Negative); Protein-Dipstick Negative (Negative); Urine Bilirubin Dipstick Negative (Negative); Urine Clarity Sl. Cloudy (Clear); Urine Urobilinogen Normal (Normal)
[2020-08-31] MEDS: LORazepam 2 MG/ML Syringe 1 MG IV (17:52)
[2020-08-31 17:54] LABS: Internal QC Validated? YES +Cl - CLEAR BKGD; Pregnancy, Urine Negative Negative
[2020-08-31 18:01] LABS: Absolute Lymphocyte Count 2.94 X10^3/uL (0.83-4.51); Absolute Neutrophil Count 7.6 X10^3/uL (2.0-7.7); Basophil# 0.06 X10^3/uL; Basophil% 0.5 % (0-1); Eosinophil# 0.29 X10^3/uL; Eosinophils% 2.5 % (0-5); Hematocrit 42.9 % (37-47); Hemoglobin 14.1 g/dL (12.0-15.0); Lymphocyte # 2.94 X10^3/ul (0.83-4.51); Mean Corp Hgb Conc 32.9 g/dL (32-36); Mean Corpuscular Hgb 27.7 pg (27.0-32.0); Mean Corpuscular Volume 84.3 fL (81-99); Mean Platelet Vol. 8.8 fl (6.2-12.0); Monocyte# 0.82 X10^3/uL; NRBC Flagged by Analyzer 0 % (0-5); Neutrophil % 64.6 % (47-70); Platelet Count 468 K/mm3 (150-450); RBC Distribution Width CV 14.3 % (11.6-14.6); RBC Distribution Width SD 44.1 fl (35.1-43.9); Red Blood Count 5.09 M/mm3 (4.2-5.4); White Blood Count 11.8 K/mm3 (4.4-11.0)
[2020-08-31 18:01] LABS: Bacteria 2+ /hpf (None Seen); Squamous Epithelial Cells - UA 0-5 SEEN /hpf (5-10); White Blood Cells 5-10 SEEN /hpf (0-5)
[2020-08-31 18:13] LABS: Amphetamine Urine VISTA POSITIVE (<1000 ng/mL); Barbiturate Urine VISTA NEGATIVE (< 200 ng/mL); Benzodiazepine Urine VISTA NEGATIVE (< 200 ng/mL); Cocaine Urine VISTA NEGATIVE (< 300 ng/mL); Ecstacy Urine VISTA NEGATIVE (< 500 ng/mL); Methadone Urine VISTA NEGATIVE (< 300 ng/mL); PCP Urine VISTA NEGATIVE (< 25 ng/mL); THC Urine VISTA POSITIVE (< 50 ng/mL); Vista UDS pH Range 7
--- NOTE | 2020-08-31 18:18 | EDS_ITS ---
HPI History of Present Illness Chief Complaint: Palpitations Informant: patient Narrative Narrative: 25-year-old female presents to the emergency department with palpitations and chest pain. She states that over the past several years she has had the symptoms. She states it comes on suddenly her heart is racing and beating strongly. She feels near syncopal short of breath. She states they have typically last 20 minutes and would resolve. She states that they became more frequent sometimes several times a day. She tells me that she saw her primary care physician and then was referred to cardiology. She tells me that cardiology felt that it was not her heart. She states that they made some adjustments including adding lisinopril to her medications and she has felt good for the past several months. On Tuesday night she smoked a blunt and her symp toms returned and have been constant since then. She reports that as soon as she smoked that she started feeling the tachycardia and knew that something was not quite right. She states she typically uses cannabis several times a week. She wonders if there was something different with the cannabis on Tuesday night. Patient states that she is crying because she is scared and she is tired of the symptoms. [facility] Medical History (Updated 08/31/20 @ 19:[address] Yamil Muhammad, DO) Anxiety Anxiety and depression Back problem Bipolar 1 disorder Depression Essential (primary) hypertension Frequent headaches Hearing loss in right ear History of breast lump Hypothyroidism Morbidly obese Nicotine dependence Overactive bladder PTSD (post-traumatic stress disorder) Rapid palpitations Seasonal allergies Suicidal behavior Thyroid disease Home Medications multivitamin 1 cap PO DAILY 01/04/19 [History Last Taken 03/18/19] amlodipine 10 mg tablet 10 mg PO DAILY #90 tab 05/13/20 [Rx Last Taken Unknown] hydrochlorothiazide 25 mg tablet 25 mg PO QAM #90 tab 05/13/20 [Rx Last Taken Unknown] levothyroxine 25 mcg tablet 25 mcg PO DAILY #90 tab 05/13/20 [Rx Last Taken Unknown] lisinopril 10 mg tablet 10 mg PO DAILY #90 tab 06/04/20 [Rx Last Taken Unknown] cyclobenzaprine 10 mg tablet 10 mg PO TID PRN #90 tab 07/10/20 [Rx Last Taken Unknown] quetiapine 25 mg tablet 25 mg PO BID #60 tab 07/10/20 [Rx Last Taken Unknown] buspirone 5 mg PO LUNCH 08/31/20 [History Last Taken Unknown] buspirone 10 mg PO BID 08/31/20 [History Last Taken Unknown] Allergy/AdvReac Type Severity Reaction Status Date / Time lithium AdvReac Severe lightheaded Verified 06/04/20 11:15 aripiprazole [From Abilify] AdvReac Mild nightmares Verified 06/04/20 11:15 Family History Other Alcoholism Anxiety and depression Arthritis Asthma Breast cancer COPD (chronic obstructive pulmonary disease) CVA (cerebral vascular accident) Diabetes Heart disease Hyperlipemia Hypertension Melanoma Myocardial infarction Seizures no surgical history Social History Smoking Status: Current every day smoker how long ago did patient quit smoking: hasn't smoked in 2 weeks alcohol intake: never substance use type: does not use caffeine: Yes (1 cup coffee) Type: coffee what type of physical activity do you participate in: none seatbelt use: always do you feel safe at home: Yes additional social history: Single-Works at [employer] ED Constitutional Constitutional ED: Denies chills or weight loss Eyes Eyes: Denies change in vision or diplopia ENT ENT ED: Denies ear pain, rhinorrhea or sore throat Cardiovascular Cardiovascular: Reports chest pain and palpitations; Denies orthopnea or racing heartbeat Respiratory/Chest Respiratory/Chest: Reports dyspnea; Denies cough or orthopnea Gastrointestinal Gastrointestinal: Denies abdominal pain, diarrhea, nausea or vomiting Genitourinary Genitourinary ED: Denies dysuria, hematuria or urinary frequency Musculoskeletal Musculoskeletal: Denies arthralgias or myalgias Integumentary Denies abscess or rash Neurologic Neurologic: Denies headache(s) or weakness Psychiatric Psychiatric: Reports anxiety; Denies depression, suicidal ideation or suicidal thoughts Endocrine Endocrinology: Denies polydipsia, polyphagia or polyuria Allergic/Immunologic Allergic/Immunologic ED: Denies mouth swelling, tongue swelling or urticaria EXAM Physical Exam Const Vital Signs: 08/31/20 17:09 08/31/20 17:23 Temperature 97.2 F L Temperature Source Temporal Pulse Rate 134 H Respiratory Rate 22 H Respiratory Pattern Normal Blood Pressure 153/90 H Blood Pressure Mean 111 Pulse Ox 100 Oxygen Delivery Method Room Air Positive well nourished, well developed and obese General Appearance ED: well developed Nutritional Appearance: obese HEENT Reports normocephalic, head/scalp atraumatic and moist mucous membranes Eyes PERRL and EOMs intact bilaterally Neck no lymphadenopathy, supple and no JVD Resp normal respiratory effort and clear to auscultation bilaterally Cardio regular rate and no murmurs Rate: tachycardic GI normal to inspection, nondistended, normoactive bowel sounds and non-tender Palpation: soft Back/Spine no CVA tenderness and normal ROM Extremity normal to inspection General Extremety ED: Negative for edema General Extremity: Negative for edema Neuro oriented x3 and CN's II-XII intact bilaterally Sensorium / Orientation: alert Motor Exam: strength 5/5 throughout Psych mental status grossly normal Mood & Affect: anxious and tearful; Negative for depressed Skin no rashes or lesions noted and no wounds MDM MDM MDM Narrative Medical decision making narrative: My interpretation of the patient's portable chest x-ray is no acute process. Radiology concurs. Patient's urine is positive for amphetamines which she does not take and cannabis. Troponin negative. Electrolytes negative. EKG sinus. Patient's resting heart rate currently is in the 90s. I think the patient's symptoms are in part due to her anxiety but also due to the amphetamine ingestion. I recommend being very careful and where she purchases her cannabis. I would recommend following up with her primary care physician. While I think that this is primarily anxiety/amphetamine use she has never had a Holter monitor it might be reasonable to let her wear this especially if she starts having daily symptoms again. Lab Data Attestation: I reviewed the patient's lab results. Labs: Laboratory Results - last 24 hr 08/31/20 08/31/20 08/31/20 17:45 17:45 17:45 WBC RBC Hgb Hct MCV MCH MCHC RDW Std Deviation RDW Coeff of Edmund Plt Count MPV Immature Gran % (Auto) Neut % (Auto) Lymph % (Auto) [place] % (Auto) Eos % (Auto) Baso % (Auto) Absolute Neuts (auto) Absolute Lymphs (auto) Nucleated RBC % D-Dimer Quant (PE/DVT) Sodium Potassium Chloride Carbon Dioxide Anion Gap BUN Creatinine Estim Creat Clear Calc Est GFR (MDRD) Af Amer Est GFR (MDRD) Non-Af BUN/Creatinine Ratio Glucose Calcium Total Bilirubin AST ALT Alkaline Phosphatase Troponin I Total Protein Albumin Globulin Albumin/Globulin Ratio Urine Color Straw Urine Clarity Sl. Cloudy Urine pH 7.0 Ur Specific [place] 1.010 Urine Protein Negative Urine Glucose (UA) Normal Urine Ketones Negative Urine Occult Blood Negative Urine Nitrite Negative Urine Bilirubin Negative Urine Urobilinogen Normal Ur Leukocyte Esterase 500 H Urine RBC 0 SEEN Urine WBC 5-10 SEEN Ur Squamous Epith Cells 0-5 SEEN Urine Bacteria 2+ Urine Mucus 0 SEEN Urine Test Negative Urine Opiates Screen NEGATIVE Urine Methadone Screen NEGATIVE Ur Barbiturates Screen NEGATIVE Ur Phencyclidine Scrn NEGATIVE Ur Amphetamines Screen POSITIVE H U Methamphetamin-MDMA NEGATIVE U Benzodiazepines Scrn NEGATIVE Urine Cocaine Screen NEGATIVE U Cannabinoids Screen POSITIVE H Ur Drug Screen Comment 08/31/20 08/31/20 08/31/20 17:47 17:47 17:47 WBC 11.8 H RBC 5.09 Hgb 14.1 Hct 42.9 MCV 84.3 MCH 27.7 MCHC 32.9 RDW Std Deviation 44.1 H RDW Coeff of Edmund 14.3 Plt Count 468 H MPV 8.8 Immature Gran % (Auto) 0.400 Neut % (Auto) 64.6 Lymph % (Auto) 25.0 [place] % (Auto) 7.0 Eos % (Auto) 2.5 Baso % (Auto) 0.5 Absolute Neuts (auto) 7.6 Absolute Lymphs (auto) 2.94 Nucleated RBC % 0 D-Dimer Quant (PE/DVT) <= 0.27 Sodium 137 Potassium 3.7 Chloride 103 Carbon Dioxide 26.0 Anion Gap 8 BUN 25 H Creatinine 0.97 Estim Creat Clear Calc 81.17 Est GFR (MDRD) Af Amer 91 Est GFR (MDRD) Non-Af 75 BUN/Creatinine Ratio 25.8 H Glucose 123 H Calcium 9.2 Total Bilirubin 0.30 AST 43 H ALT 46 Alkaline Phosphatase 127 H Troponin I < 0.015 Total Protein 8.4 H Albumin 3.9 Globulin 4.5 H Albumin/Globulin Ratio 0.9 Urine Color Urine Clarity Urine pH Ur Specific [place] Urine Protein Urine Glucose (UA) Urine Ketones Urine Occult Blood Urine Nitrite Urine Bilirubin Urine Urobilinogen Ur Leukocyte Esterase Urine RBC Urine WBC Ur Squamous Epith Cells Urine Bacteria Urine Mucus Urine Test Urine Opiates Screen Urine Methadone Screen Ur Barbiturates Screen Ur Phencyclidine Scrn Ur Amphetamines Screen U Methamphetamin-MDMA U Benzodiazepines Scrn Urine Cocaine Screen U Cannabinoids Screen Ur Drug Screen Comment Radiography Diagnostic Testing: Radiology Impression Chest X-Ray 08/31/20 17:36 IMPRESSION: No acute radiographic abnormalities. Electronically Signed: Rodrigue Caraballo MD at 18:23 EDT Tel , Service support , EKG Initial EKG: Attestation: I personally reviewed and interpreted this EKG as follows: Comments: EKG is a normal sinus rhythm at a rate of 100 bpm. No preexcitation noted. No concerning features of ACS or ectopy seen. Discharge Plan Triage Chief Complaint: Palpitations ED Provider: Yamil Muhammad Dx/Rx/DC Orders Clinical Impression: Heart palpitations, Bipolar 1 disorder, Anxiety and depression, Amphetamine adverse reaction Instructions: ED Palpitations Prescriptions: No Action multivitamin capsule capsule 1 cap PO DAILY RF: 0 amlodipine 10 mg tablet 10 mg PO DAILY Qty: 90 RF: 1 hydrochlorothiazide 25 mg tablet 25 mg PO QAM Qty: 90 RF: 3 levothyroxine 25 mcg tablet 25 mcg PO DAILY Qty: 90 RF: 2 lisinopril 10 mg tablet 10 mg PO DAILY Qty: 90 RF: 3 buspirone 5 mg Tablet 5 mg PO LUNCH RF: 0 buspirone 10 mg tablet 10 mg PO BID RF: 0 cyclobenzaprine 10 mg tablet 10 mg PO TID PRN (Reason: muscle spasm) Qty: 90 RF: 2 quetiapine 25 mg tablet 25 mg PO BID Qty: 60 RF: 2 Primary Care Provider: Kye Covington Referrals: Kye Covington MD [Primary Care Provider] - 1 Week (I would recommend you talk to your doctor about possibly needing a Holter monitor if you continue to have frequent symptoms.) Disposition Disposition: Home, self care
[2020-08-31 18:19] LABS: ALB/GLOB Ratio 0.9 RATIO (0.9-2.4); AST(SGOT) 43 U/L (15-37); Alanine Aminotransfer ALT/SGPT 46 U/L (13-56); Albumin, Serum 3.9 g/dL (3.2-5.0); Alkaline Phosphatase 127 U/L (45-117); Anion Gap 8 (5-15); BUN 25 mg/dL (7-18); BUN/Creat Ratio 25.8 RATIO (10-20); Calcium,Total 9.2 mg/dL (8.5-10.1); Chloride 103 mmol/L (98-107); Creatinine, Serum 0.97 mg/dL (0.55-1.02); EST Glomerular Filtration Rate 75 mL/min (>60); Est Glom Filt Rate - Afr Amer 91 mL/min (>60); Estimated Creatinine Clearance 81.17 ml/min; Globulin 4.5 g/dL (2.2-4.2); Glucose 123 mg/dL (74-106); Potassium 3.7 mmol/L (3.5-5.1); Protein, Total 8.4 g/dL (6.4-8.2); Sodium Level 137 mmol/L (136-145)
[2020-08-31 18:28] LABS: D-Dimer Quantitative (DVT/PE) <= 0.27 FEU/ug/m (0.27-0.49)
[2020-08-31 19:11] VITALS: BP 125/73; PULSE 96; RESP 18; O2SAT 99
== END 2020-08-31 19:12 | disposition home or self-care (01) ==
PROVIDERS: Emergency Provider Emergency Medicine; PCP Internal Medicine
DX: R00.2 Palpitations (principal); R07.9 Chest pain, unspecified; R06.02 Shortness of breath; R55 Syncope and collapse; I10 Essential (primary) hypertension; E03.9 Hypothyroidism, unspecified; N32.81 Overactive bladder; F31.9 Bipolar disorder, unspecified; F43.10 Post-traumatic stress disorder, unspecified; E66.01 Morbid (severe) obesity due to excess calories; F17.200 Nicotine dependence, unspecified, uncomplicated; Z79.890 Hormone replacement therapy; Z79.899 Other long term (current) drug therapy
CPT/HCPCS: 71045; 80053; 80307; 81001; 81025; 84484; 85025; 85379; 93005; 96374; 99284; A4216

== ENCOUNTER 2020-09-01 10:05 | Emergency (ER) | payer MEDICAID, SELFPAY ==
[2020-08-31 17:09] VITALS: BMI 54.6
[2020-09-01 10:05] VITALS: BP 162/85; PULSE 105; RESP 18; TEMP 36.6; O2SAT 100; BMI 53.2
--- NOTE | 2020-09-01 10:24 | EKG12_ITS ---
Test Reason : PALPS Blood Pressure : / mmHG Vent. Rate : 072 BPM Atrial Rate : 072 BPM P-R Int : 178 ms QRS Dur : 104 ms QT Int : 390 ms P-R-T Axes : 039 061 057 degrees QTc Int : 427 ms Normal sinus rhythm with sinus arrhythmia Normal ECG Confirmed by ARAVIND CRENSHAW, TOBI ([id number]), script editor STEPHENIE UNDERWOOD ([id number]) on 09/03/2020 8:56:36 AM Referred By: CLIFFORD Confirmed By:TOBI NAZARIO MD
--- NOTE | 2020-09-01 10:25 | EX.ED.DYSGE1 ---
HPI History of Present Illness Chief Complaint: Palpitations Informant: patient Onset/Context/Timing Onset: Days Context: Gradual Onset Timing: Waxes and wanes Current Severity: Moderate Maximum Severity: Severe Narrative Narrative: Patient presents secondary to continued palpitations. She was seen in the emergency room last evening for the same. Per that note patient had a problem with palpitations in the past and after some medication adjustments been feeling well for the past several months. Last Tuesday patient reportedly smoked a blunt and since then has been having problems with palpitations. Talk screen last evening was positive for amphetamines. Blood work and EKG were unremarkable last evening and she was advised to follow with her PCP for possible Holter monitor if symptoms do not improve. Patient returns this morning stating that she has continued palpitations and felt like she was going to pass out. She tells me that she had a pulse ox meter at home last evening that read her heart rate at 197. She states she still feels like her heart is racing although her heart rate is 83 at the time of my exam. [facility] Medical History (Updated 09/01/20 @ 12:[address] Mimi Borden MD) Anxiety Anxiety and depression Back problem Bipolar 1 disorder Depression Essential (primary) hypertension Frequent headaches Hearing loss in right ear History of breast lump Hypothyroidism Morbidly obese Nicotine dependence Overactive bladder PTSD (post-traumatic stress disorder) Rapid palpitations Seasonal allergies Suicidal behavior Thyroid disease Home Medications multivitamin 1 cap PO DAILY 01/04/19 [History Last Taken 03/18/19] amlodipine 10 mg tablet 10 mg PO DAILY #90 tab 05/13/20 [Rx Last Taken Unknown] hydrochlorothiazide 25 mg tablet 25 mg PO QAM #90 tab 05/13/20 [Rx Last Taken Unknown] levothyroxine 25 mcg tablet 25 mcg PO DAILY #90 tab 05/13/20 [Rx Last Taken Unknown] lisinopril 10 mg tablet 10 mg PO DAILY #90 tab 06/04/20 [Rx Last Taken Unknown] cyclobenzaprine 10 mg tablet 10 mg PO TID PRN #90 tab 07/10/20 [Rx Last Taken Unknown] quetiapine 25 mg tablet 25 mg PO BID #60 tab 07/10/20 [Rx Last Taken Unknown] buspirone 5 mg PO LUNCH 08/31/20 [History Last Taken Unknown] buspirone 10 mg PO BID 08/31/20 [History Last Taken Unknown] Allergy/AdvReac Type Severity Reaction Status Date / Time lithium AdvReac Severe lightheaded Verified 09/01/20 10:07 aripiprazole [From Abilify] AdvReac Mild nightmares Verified 09/01/20 10:07 Family History Other Alcoholism Anxiety and depression Arthritis Asthma Breast cancer COPD (chronic obstructive pulmonary disease) CVA (cerebral vascular accident) Diabetes Heart disease Hyperlipemia Hypertension Melanoma Myocardial infarction Seizures Social History Smoking Status: Current every day smoker how long ago did patient quit smoking: hasn't smoked in 2 weeks alcohol intake: never substance use type: does not use caffeine: Yes (1 cup coffee) Type: coffee what type of physical activity do you participate in: none seatbelt use: always do you feel safe at home: Yes additional social history: Single-Works at [employer] ED Constitutional Constitutional ED: Denies chills or fever(s) Eyes Eyes: Denies change in vision ENT ENT ED: Denies sore throat Cardiovascular Cardiovascular: Reports chest pain, palpitations and racing heartbeat Respiratory/Chest Respiratory/Chest: Denies cough or dyspnea Gastrointestinal Gastrointestinal: Denies abdominal pain, diarrhea, nausea or vomiting Genitourinary Genitourinary ED: Denies dysuria Musculoskeletal Musculoskeletal: Denies back pain Integumentary Denies rash Neurologic Neurologic: Denies headache(s) or weakness Psychiatric Psychiatric: Denies anxiety or depression Endocrine Endocrinology: Denies polydipsia or polyuria Allergic/Immunologic Allergic/Immunologic ED: Denies urticaria EXAM Physical Exam Const Vital Signs: 09/01/20 10:05 09/01/20 10:19 Temperature 97.8 F Temperature Source Temporal Pulse Rate 105 H Respiratory Rate 18 Respiratory Pattern Normal Blood Pressure 162/85 H Blood Pressure Mean 110 Pulse Ox 100 Oxygen Delivery Method Room Air Positive well nourished and well developed General Appearance ED: well developed HEENT Reports normocephalic and head/scalp atraumatic Eyes PERRL and EOMs intact bilaterally Neck supple Chest Wall inspection of chest normal and palpation of chest normal Resp normal respiratory effort and clear to auscultation bilaterally Cardio regular rate and regular rhythm GI normal to inspection, nondistended, normoactive bowel sounds Palpation: soft Back/Spine no CVA tenderness Extremity normal to inspection Neuro oriented x3 and no sensory deficits noted Sensorium / Orientation: alert Motor Exam: strength 5/5 throughout Psych Mood & Affect: anxious Skin no rashes or lesions noted [facility] Lab Data Attestation: I reviewed the patient's lab results. Labs: Laboratory Results - last 24 hr 09/01/20 10:55 TSH 2.20 EKG Initial EKG: Interpretation: Sinus Rhythm (Sinus at 72 with no acute ischemia. Normal intervals.) Treatment and Re-Evaluation Comments:: Patient was placed on monitor and storage bin tender and had no arrhythmias throughout her stay. Patient's lab work from yesterday was reviewed. I do not see that a TSH was done and that was added today and normal. Although patient did have a positive tox screen yesterday which may be causing her palpitations, she does state that her pulse went to [address] Angel patient had a 24-hour Holter monitor placed. Discharge Plan Triage Chief Complaint: Palpitations ED Provider: Mimi Borden Dx/Rx/DC Orders Clinical Impression: Heart palpitations Instructions: ED Palpitations Prescriptions: No Action multivitamin capsule capsule 1 cap PO DAILY RF: 0 amlodipine 10 mg tablet 10 mg PO DAILY Qty: 90 RF: 1 hydrochlorothiazide 25 mg tablet 25 mg PO QAM Qty: 90 RF: 3 levothyroxine 25 mcg tablet 25 mcg PO DAILY Qty: 90 RF: 2 lisinopril 10 mg tablet 10 mg PO DAILY Qty: 90 RF: 3 buspirone 5 mg Tablet 5 mg PO LUNCH RF: 0 buspirone 10 mg tablet 10 mg PO BID RF: 0 cyclobenzaprine 10 mg tablet 10 mg PO TID PRN (Reason: muscle spasm) Qty: 90 RF: 2 quetiapine 25 mg tablet 25 mg PO BID Qty: 60 RF: 2 Primary Care Provider: Kye Covington Referrals: Raul Angel MD [STAFF PHYSICIAN] - 1-2 Weeks Kye Covington MD [Primary Care Provider] - Disposition Disposition: Home, self care
[2020-09-01] MEDS: LORazepam 2 MG/ML Syringe 0.5 MG IV (11:08)
[2020-09-01 12:28] VITALS: BP 139/84; PULSE 88; RESP 18; O2SAT 100
--- NOTE | 2020-09-01 12:29 | ED.RN ---
Holter monitor placed prior to discharge. pt verbalizes understanding. Pt aware to return if necessary
== END 2020-09-01 12:32 | disposition home or self-care (01) ==
PROVIDERS: Emergency Provider Emergency Medicine; PCP Internal Medicine
DX: R00.2 Palpitations (principal); I10 Essential (primary) hypertension; E03.9 Hypothyroidism, unspecified; E66.01 Morbid (severe) obesity due to excess calories; N32.81 Overactive bladder; F31.9 Bipolar disorder, unspecified; F43.10 Post-traumatic stress disorder, unspecified; Z79.899 Other long term (current) drug therapy; Z87.891 Personal history of nicotine dependence
CPT/HCPCS: 84443; 93005; 96374; 99284; J7030; A4216

== ENCOUNTER → 2020-09-01 11:42 | Outpatient (CLI) | payer MEDICAID, SELFPAY ==
[2020-09-01 10:05] VITALS: BMI 53.2
== END ==
PROVIDERS: PCP Internal Medicine; Visit Provider Emergency Medicine
DX: R00.2 Palpitations (principal); I10 Essential (primary) hypertension; E03.9 Hypothyroidism, unspecified; N32.81 Overactive bladder; F31.9 Bipolar disorder, unspecified; F43.10 Post-traumatic stress disorder, unspecified; E66.01 Morbid (severe) obesity due to excess calories; Z79.899 Other long term (current) drug therapy; Z87.891 Personal history of nicotine dependence
CPT/HCPCS: 84443; 93005; 93225; 93226; J7030; A4216

== ENCOUNTER 2020-09-28 11:39 | Emergency (ER) | payer MEDICAID, SELFPAY ==
[2020-09-08 11:43] VITALS: BMI 53.2
[2020-09-28 11:41] VITALS: BP 110/70; PULSE 87; RESP 17; TEMP 35.8; O2SAT 100; BMI 53.6
--- NOTE | 2020-09-28 12:01 | EDS_ITS ---
HPI History of Present Illness Chief Complaint: Complaint Detail of Chief Complaint: Dysuria that started yesterday Narrative Narrative: Patient presents with dysuria and frequency that started yesterday. She complains of some mild nausea. She denies any back pain. Denies any significant abdominal pain. She has had no fevers. She denies hematuria. Prior similar symptoms: Yes PFSH [facility] Medical History (Updated 09/28/20 @ 13:[address] Sreedhar Martinez, DO) Anxiety Anxiety and depression Back problem Bipolar 1 disorder Depression Essential (primary) hypertension Frequent headaches Hearing loss in right ear History of breast lump Hypothyroidism Morbidly obese Nicotine dependence Overactive bladder PTSD (post-traumatic stress disorder) Rapid palpitations Seasonal allergies Suicidal behavior Thyroid disease Home Medications multivitamin 1 cap PO DAILY 01/04/19 [History Last Taken 03/18/19] amlodipine 10 mg tablet 10 mg PO DAILY #90 tab 05/13/20 [Rx Last Taken Unknown] hydrochlorothiazide 25 mg tablet 25 mg PO QAM #90 tab 05/13/20 [Rx Last Taken Unknown] levothyroxine 25 mcg tablet 25 mcg PO DAILY #90 tab 05/13/20 [Rx Last Taken Unknown] lisinopril 10 mg tablet 10 mg PO DAILY #90 tab 06/04/20 [Rx Last Taken Unknown] cyclobenzaprine 10 mg tablet 10 mg PO TID PRN #90 tab 07/10/20 [Rx Last Taken Unknown] quetiapine 25 mg tablet 25 mg PO BID #60 tab 07/10/20 [Rx Last Taken Unknown] buspirone 15 mg tablet 15 mg PO TID 09/03/20 [History Last Taken Unknown] amitriptyline 25 mg PO DAILY 09/28/20 [History Last Taken Unknown] sertraline 50 mg PO QHS 09/28/20 [History Last Taken Unknown] sulfamethoxazole-trimethoprim [Bactrim DS] 1 tab PO BID #6 tab 09/28/20 [Rx Last Taken Unknown] Allergy/AdvReac Type Severity Reaction Status Date / Time lithium AdvReac Severe lightheaded Verified 09/28/20 11:40 aripiprazole [From Abilify] AdvReac Mild nightmares Verified 09/28/20 11:40 Family History Other Alcoholism Anxiety and depression Arthritis Asthma Breast cancer COPD (chronic obstructive pulmonary disease) CVA (cerebral vascular accident) Diabetes Heart disease Hyperlipemia Hypertension Melanoma Myocardial infarction Seizures Social History Smoking Status: Current every day smoker tobacco type: cigarettes how long ago did patient quit smoking: hasn't smoked in 2 weeks alcohol intake: never substance use type: does not use caffeine: Yes (1 cup coffee) Type: coffee what type of physical activity do you participate in: none seatbelt use: always do you feel safe at home: Yes additional social history: Single-Works at [employer] ED Constitutional Constitutional ED: Reports systems reviewed and no addt'l complaints, except as documented; Denies body ache(s), change in weight or chills Eyes Eyes: Denies acute decrease in peripheral vision, change in vision, double vision or loss of vision ENT ENT ED: Reports none; Denies ear pain, lip swelling, loss taste/smell, neck pain, otalgia or sore throat Cardiovascular Cardiovascular: Reports none; Denies abdominal pain, chest pain with activity, leg edema, lightheadedness, palpitations, rapid heart rate or syncope Respiratory/Chest Respiratory/Chest: Reports none; Denies change in mental status, dry cough, dyspnea, hemoptysis, shortness of breath at rest or shortness of breath with exertion Gastrointestinal Gastrointestinal: Reports none; Denies abdominal pain, change in stool character, diarrhea, hematemesis, hematochezia, melena, rectal bleeding or vomiting Genitourinary Genitourinary ED: Reports dysuria and urinary frequency Musculoskeletal Musculoskeletal: Reports none; Denies arthralgias, back pain, difficulty walking, extremity pain, muscle weakness or myalgias Integumentary Reports none; Denies abscess or rash Neurologic Neurologic: Reports none; Denies abnormal gait, confusion, focal weakness, frequent falls, headache(s), loss of vision, numbness, paresthesias, radicular pain, vertigo or weakness Psychiatric Psychiatric: Reports systems reviewed and no addt'l complaints, except as documented and none; Denies behavioral changes, confusion, difficulty conc entrating, hallucinations, suicidal ideation, tactile hallucinations or visual hallucinations Endocrine Endocrinology: Denies none, cold intolerance, excessive sweating, fatigue or heat intolerance Hematologic/Lymphatic Hematologic/Lymphatic: Reports none; Denies anemia, easy bleeding or easy bruising Allergic/Immunologic Allergic/Immunologic ED: Denies as per HPI, none, lip swelling, mouth swelling, throat swelling, tongue swelling or hives EXAM Physical Exam Const Vital Signs: 09/28/20 11:41 Temperature 96.5 F L Temperature Source Temporal Pulse Rate 87 Respiratory Rate 17 Blood Pressure 110/70 Blood Pressure Mean 83 Pulse Ox 100 Oxygen Delivery Method Room Air Positive well nourished and well developed General Appearance ED: well developed and NAD HEENT Reports TM's clear and moist mucous membranes normocephalic and atraumatic; Negative for trauma or tenderness Tympanic Membrane ED: Yes TM's clear Eyes PERRL and EOMs intact bilaterally General Eye ED: Negative for pale conjunctiva or scleral icterus Neck no lymphadenopathy, supple and no JVD General: Negative for tenderness Chest Wall inspection of chest normal and palpation of chest normal Chest: Negative for tenderness Resp normal respiratory effort and clear to auscultation bilaterally Effort and Inspection: Negative for respiratory distress or pain with movement Auscultation: Negative for rhonchi, wheezes or diminished lung sounds Cardio regular rate, regular rhythm, S1 normal heart sound, S2 normal heart sound and no murmurs Peripheral Pulses: pulses 2+ throughout GI normal to inspection, nondistended, normoactive bowel sounds, soft to palpation, non-tender, non-distended and no masses Back/Spine no CVA tenderness and no thoracic nor lumbar tenderness Extremity normal to inspection General Extremety ED: Negative for edema General Extremity: Negative for edema Neuro oriented x3, CN's II-XII intact bilaterally, no sensory deficits noted and gait normal Sensorium / Orientation: awake, alert, oriented to person, oriented to place and oriented to time Motor Exam: strength 5/5 throughout and strength abnormal Psych mental status grossly normal Skin no rashes or lesions noted and no wounds MDM MDM MDM Narrative Medical decision making narrative: Etiology of her dysuria is unclear. I did send off gonorrhea and Chlamydia cultures that she does have a new boyfriend. Patient was treated with Rocephin and Zithromax. I will also cover her with Bactrim for 3 days as she does have symptoms concerning for UTI although her urine looks unremarkable. Lab Data Attestation: I reviewed the patient's lab results. Labs: Laboratory Results - last 24 hr 09/28/20 09/28/20 12:00 12:05 Urine Color Yellow Urine Clarity Clear Urine pH 6.5 Ur Specific Scott 1.015 Urine Protein Negative Urine Glucose (UA) Normal Urine Ketones Negative Urine Occult Blood Negative Urine Nitrite Negative Urine Bilirubin Negative Urine Urobilinogen Normal Ur Leukocyte Esterase 100 H Urine RBC 0 SEEN Urine WBC 0-5 SEEN Ur Squamous Epith Cells 0 SEEN Urine Bacteria 1+ Urine Mucus 0 SEEN Urine Test Negative Radiography Diagnostic Testing: Radiology Impression Abdomen/Pelvis CT 09/28/20 12:42 IMPRESSION: No focal acute inflammatory process. Electronically Signed: Wil Patino MD at 13:36 EDT Tel , Service support , Discharge Plan Triage Chief Complaint: Complaint ED Provider: Sreedhar Martinez Dx/Rx/DC Orders Clinical Impression: Dysuria Instructions: ED Urethritis Infec Vs Inflam ..., ED Bladder Infection, Female (Adult) Prescriptions: New sulfamethoxazole-trimethoprim [Bactrim DS] 800-160 mg tablet 1 tab PO BID Qty: 6 RF: 0 No Action multivitamin capsule capsule 1 cap PO DAILY RF: 0 amlodipine 10 mg tablet 10 mg PO DAILY Qty: 90 RF: 1 hydrochlorothiazide 25 mg tablet 25 mg PO QAM Qty: 90 RF: 3 levothyroxine 25 mcg tablet 25 mcg PO DAILY Qty: 90 RF: 2 lisinopril 10 mg tablet 10 mg PO DAILY Qty: 90 RF: 3 buspirone 15 mg tablet 15 mg PO TID RF: 0 amitriptyline 25 mg tablet 25 mg PO DAILY RF: 0 sertraline 50 mg tablet 50 mg PO QHS RF: 0 cyclobenzaprine 10 mg tablet 10 mg PO TID PRN (Reason: muscle spasm) Qty: 90 RF: 2 quetiapine 25 mg tablet 25 mg PO BID Qty: 60 RF: 2 Primary Care Provider: Kye Covington Referrals: Kye Covington MD [Primary Care Provider] - 3-5 Days Disposition Disposition: Home, self care
[2020-09-28 12:13] LABS: Mucous, Urine 0 SEEN /hpf (<or=2+); Red Blood Cells-Urine 0 SEEN /hpf (0-5); Squamous Epithelial Cells - UA 0 SEEN /hpf (5-10)
[2020-09-28 12:14] LABS: Color, Urine Yellow (Yellow); Glucose, Dipstick Normal (Normal); Ketone-Dipstick Negative (Negative); Leukocyte Esterase-Dipstick 100 /ul (Negative); Nitrite-Dipstick Negative (Negative); Occult Blood-Urine Negative /ul (Negative); Protein-Dipstick Negative (Negative); Specific Gravity, Urine 1.015 (1.002-1.030); Urine Bilirubin Dipstick Negative (Negative); Urine Clarity Clear (Clear); Urine Urobilinogen Normal (Normal); Urine pH 6.5 (5.0 - 8.0)
[2020-09-28 12:29] LABS: Bacteria 1+ /hpf (None Seen); White Blood Cells 0-5 SEEN /hpf (0-5)
--- NOTE | 2020-09-28 12:42 | CT_ITS ---
EXAM: CT ABDOMEN AND PELVIS WITHOUT INTRAVENOUS CONTRAST CLINICAL INDICATION: flank pain TECHNIQUE: Helically acquired images were obtained of the abdomen and pelvis without intravenous contrast. This CT exam was performed using one or more of the following dose reduction techniques: automated exposure control, adjustment of the mA and/or kV according to patient size, and/or use of iterative reconstruction technique. This report was created using [employer] report generation technology. COMPARISON: None. FINDINGS: LOWER THORAX: Unremarkable. Lung bases are clear. No cardiomegaly. No significant pericardial effusion. ABDOMEN: LIVER: Borderline hepatomegaly. Probable mild fatty infiltration of the liver. GALLBLADDER AND BILE DUCTS: Unremarkable. No calcified gallstones. No gallbladder distention or wall edema. No intra- or extrahepatic biliary ductal dilation. PANCREAS: Unremarkable. No focal cystic mass. SPLEEN: Unremarkable. Normal size without focal cystic or solid mass. ADRENALS: Unremarkable. No nodules. KIDNEYS AND URETERS: Unremarkable. Normal renal size and position. No hydronephrosis. STOMACH AND BOWEL: Fecal retention.. No stomach or bowel distention. No focal inflammatory change. PELVIS: APPENDIX: No evidence of acute appendicitis. BLADDER: Unremarkable. REPRODUCTIVE: Unremarkable as visualized. No mass. ABDOMEN and PELVIS: INTRAPERITONEAL SPACE: Unremarkable. No ascites or other fluid collection. No free air. BONES/JOINTS: Unremarkable. No suspicious lytic or blastic abnormality. SOFT TISSUES: Unremarkable. No discrete abdominal or pelvic wall hernia. VASCULATURE: Unremarkable. Abdominal aorta is non-dilated. LYMPH NODES: Unremarkable. No enlarged lymph nodes. CT/Abdomen/Pelvis without Cont IMPRESSION: No focal acute inflammatory process. Electronically Signed: Wil Patino MD at 13:36 EDT Tel , Service support ,
[2020-09-28 13:07] LABS: Internal QC Validated? YES +Cl - CLEAR BKGD; Pregnancy, Urine Negative Negative
[2020-09-28 14:57] LABS: Chlamydia Trachomatis by PCR Negative (Negative); Neisserai gonorrhoeae by PCR Negative (Negative); Probe Check PASS; Sample Adequacy Control PASS; Specimen Processing Control PASS
[2020-09-28] MEDS: Azithromycin 250 MG Tablet 1000 MG PO (15:01)
[2020-09-28] MEDS: Ceftriaxone 500 MG Vial 250 MG IM (15:02)
[2020-09-28 15:10] VITALS: BP 114/72; PULSE 88; RESP 16; TEMP 36.7; O2SAT 100
== END 2020-09-28 15:30 | disposition home or self-care (01) ==
PROVIDERS: Emergency Provider Emergency Medicine; PCP Internal Medicine
DX: R30.0 Dysuria (principal); E66.01 Morbid (severe) obesity due to excess calories; F17.210 Nicotine dependence, cigarettes, uncomplicated; E03.9 Hypothyroidism, unspecified; I10 Essential (primary) hypertension; F43.10 Post-traumatic stress disorder, unspecified; F31.9 Bipolar disorder, unspecified; Z79.899 Other long term (current) drug therapy
CPT/HCPCS: 74176; 81001; 81025; 87077; 87086; 87088; 87186; 87491; 87591; 96372; 99283

== ENCOUNTER 2020-12-24 15:05 | Emergency (ER) | payer MEDICAID, SELFPAY ==
[2020-12-24 15:06] VITALS: BP 142/85; PULSE 90; RESP 18; TEMP 36.6; O2SAT 98; BMI 49.9
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
[2020-12-24 15:54] VITALS: BP 128/74; PULSE 89; RESP 15; O2SAT 100
[2020-12-24 17:26] LABS: Chlamydia Trachomatis by PCR Negative (Negative); Neisserai gonorrhoeae by PCR Negative (Negative); Probe Check PASS; Sample Adequacy Control PASS; Specimen Processing Control PASS
[2020-12-24 18:06] LABS: Mucous, Urine 0 SEEN /hpf (<or=2+); Red Blood Cells-Urine 0 SEEN /hpf (0-5)
[2020-12-24 18:07] LABS: Color, Urine Yellow (Yellow); Glucose, Dipstick Normal (Normal); Ketone-Dipstick Negative (Negative); Leukocyte Esterase-Dipstick 500 /ul (Negative); Nitrite-Dipstick Negative (Negative); Occult Blood-Urine 10 /ul (Negative); Protein-Dipstick 15 mg/dl (Negative); Specific Gravity, Urine 1.025 (1.002-1.030); Urine Bilirubin Dipstick Negative (Negative); Urine Clarity Sl. Cloudy (Clear); Urine Urobilinogen Normal (Normal)
[2020-12-24 18:18] VITALS: BP 148/85; PULSE 75; RESP 15; O2SAT 98
[2020-12-24 18:18] LABS: Bacteria RARE /hpf (None Seen); Squamous Epithelial Cells - UA 0-5 SEEN /hpf (5-10); White Blood Cells 25-50 SEEN /hpf (0-5)
[2020-12-24 19:28] VITALS: PULSE 78; RESP 18; O2SAT 99
--- NOTE | 2020-12-24 19:29 | ED.RN ---
THIS NURSE REVIEWED D/C INSTRUCTIONS WITH PT. PT VERBALIZED UNDERSTANDING OF INSTRUCTIONS PT DENIES FURTHER NEEDS OR QUESITONS AT THIS TIME.
== END 2020-12-24 19:29 | disposition home or self-care (01) ==
PROVIDERS: Emergency Provider Emergency Medicine; PCP Internal Medicine
DX: N30.00 Acute cystitis without hematuria (principal); N76.0 Acute vaginitis; B96.89 Other specified bacterial agents as the cause of diseases classified elsewhere; I10 Essential (primary) hypertension; E03.9 Hypothyroidism, unspecified; N32.81 Overactive bladder; E66.01 Morbid (severe) obesity due to excess calories; F43.10 Post-traumatic stress disorder, unspecified; F31.9 Bipolar disorder, unspecified; F17.210 Nicotine dependence, cigarettes, uncomplicated; Z79.890 Hormone replacement therapy; Z79.899 Other long term (current) drug therapy
CPT/HCPCS: 81001; 87077; 87086; 87088; 87186; 87210; 87491; 87591; 99282

== ENCOUNTER 2021-07-21 08:30 | Outpatient (RCR) | payer MEDICAID, SELFPAY ==
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
--- NOTE | 2021-07-21 11:40 | BH.PSA ---
Development & Family of Origin - Family History Family History: Family History (Last Reviewed 09/03/20 @ 15:52 by Ivelisse Levy) Other Alcoholism Anxiety and depression Arthritis Asthma Breast cancer COPD (chronic obstructive pulmonary disease) CVA (cerebral vascular accident) Diabetes Heart disease Hyperlipemia Hypertension Melanoma Myocardial infarction Seizures Suicide Assessment Treatment Plan Recommendations
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
--- NOTE | 2021-07-22 11:10 | BH.SGPN.GN ---
Behaviors/Verbalizations/Mental Status: []Client alert and oriented, disheveled. Eye contact good. Motor activity appropriate. Speech within normal limits. Affect constricted, mood anxious and depressed. Thoughts linear, logical, no signs of hallucinations or delusions. Client Response/Progress/Benefit: []Client engaged participant AEB client taking notes during discussion. Attentive throughout group discussion on the various areas of self-care, benefits, and types of self-care activities for each area. Client completed worksheet which identified current self-care practices and what self-care activities client wants to start using. Client selected psychological self-care as the area of self-care client would like to improve. Client plans to do this by learning about her diagnosis, challenging negative thoughts, and engaging in her hobbies. Client reports she is doing well with physical self-care. Appeared to benefit from completing the self-care evaluation and gaining insights into current self-care practices, as well as identifying areas in which she would like to improve upon. Will continue IOP tx to prevent decompensation, gain healthy coping skills, and monitor psychosis. Narrative Note: []
[2021-07-22 12:02] VITALS: BP 157/96; PULSE 75
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
--- NOTE | 2021-07-22 12:58 | BH.DR.ITP ---
Initial Treatment Plan Patient Information Visit Information: ADMISSION DATE: EXPECTED LOS: 4-6 weeks Problems/Symptoms Problem #1:: Mood instability Symptom:: Sadness, irritability, anger and violent outbursts, crying, hopelessness, worthlessness, guilt, decreased concentration, passive thoughts of , passive suicidal ideation. Problem #2:: Anxiety Symptom:: Worry, panic attacks, flashbacks, avoidance, reexperiencing and nightmares
--- NOTE | 2021-07-24 09:51 | BH.COMM ---
Communication Note - Communication with Client Communication Note: Therapist met with pt to assess risk as she had indicated a 4.5/5 for suicidal ideation and 1/5 for risk. Reports experiencing increased command hallucinations to harm herself since yesterday morning and that she had acted on commands to hit herself in the head. Expressed these have since escalated to telling pt to kill herself by taking all of her medications and that with extreme difficulty was able to prevent from doing so last night. Reports she continues to have these voices today and is unsure she will be able to prevent from acting on them. Denies having anyone to secure her medications for her. Receptive of discussion regarding safety and stabilizing pt's medications. Pt agreeable to be evaluated at the ER with likely inpatient hospitalization due to nature of command hallucinations, access to lethal means, and limited support. Therapist accompanied pt to ER where she will be further evaluated.
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
== END 2021-07-24 12:45 ==
LOC: BHIOP 08:30
PROVIDERS: PCP Internal Medicine; Referring Provider Psychiatry & Neurology Psychiatry; Visit Provider Psychiatry & Neurology Psychiatry
DX: F31.9 Bipolar disorder, unspecified (principal); F43.10 Post-traumatic stress disorder, unspecified; Z79.899 Other long term (current) drug therapy
CPT/HCPCS: H2012; 90792; S9480; T1002; 90834

== ENCOUNTER 2021-07-22 12:48 | Outpatient (CLI) | payer MEDICAID, SELFPAY ==
[2021-07-22 14:15] LABS: Vitamin D,25 Hydroxy 19.1 ng/mL
[2021-07-22 14:20] LABS: T4 Free Direct 0.96 ng/dL (0.76-1.46); T4 Total, Thyroxin 8.9 ug/dL (4.8-13.9); Thyroid Stim Hormone (TSH) 2.29 uIU/mL (0.358-3.74)
== END 2021-07-22 23:59 | disposition home or self-care (01) ==
LOC: LAB 12:50
PROVIDERS: PCP Internal Medicine; Referring Provider Psychiatry & Neurology Psychiatry; Visit Provider Psychiatry & Neurology Psychiatry
DX: E55.9 Vitamin D deficiency, unspecified (principal)
CPT/HCPCS: 36415; 82306; 84436; 84439; 84443

== ENCOUNTER 2021-07-24 09:13 | Emergency (ER) | payer MEDICAID, SELFPAY ==
[2021-07-24 09:14] VITALS: BP 141/97; PULSE 107; RESP 17; TEMP 35.6; O2SAT 96; BMI 50.6
[2021-07-24 10:13] VITALS: RESP 16
[2021-07-24 10:14] LABS: Mucous, Urine 0 SEEN /hpf (<or=2+); Red Blood Cells-Urine 0 SEEN /hpf (0-5)
[2021-07-24 10:16] LABS: Color, Urine Yellow (Yellow); Glucose, Dipstick Normal (Normal); Ketone-Dipstick Negative (Negative); Leukocyte Esterase-Dipstick 500 /ul (Negative); Nitrite-Dipstick Negative (Negative); Occult Blood-Urine 10 /ul (Negative); Protein-Dipstick Negative (Negative); Specific Gravity, Urine 1.015 (1.002-1.030); Urine Bilirubin Dipstick Negative (Negative); Urine Clarity Clear (Clear); Urine Urobilinogen Normal (Normal)
[2021-07-24 10:25] LABS: Bacteria 2+ /hpf (None Seen); Squamous Epithelial Cells - UA 5-10 SEEN /hpf (5-10); White Blood Cells 10-25 SEEN /hpf (0-5)
[2021-07-24 10:30] LABS: Amphetamine Urine VISTA NEGATIVE (<1000 ng/mL); Barbiturate Urine VISTA NEGATIVE (< 200 ng/mL); Benzodiazepine Urine VISTA NEGATIVE (< 200 ng/mL); Cocaine Urine VISTA NEGATIVE (< 300 ng/mL); Ecstacy Urine VISTA NEGATIVE (< 500 ng/mL); Methadone Urine VISTA NEGATIVE (< 300 ng/mL); PCP Urine VISTA NEGATIVE (< 25 ng/mL); THC Urine VISTA POSITIVE (< 50 ng/mL); Vista UDS pH Range 5
[2021-07-24 10:33] LABS: Absolute Lymphocyte Count 1.82 X10^3/uL (0.83-4.51); Absolute Neutrophil Count 4.6 X10^3/uL (2.0-7.7); Basophil# 0.02 X10^3/uL; Basophil% 0.3 % (0-1); Eosinophil# 0.12 X10^3/uL; Eosinophils% 1.7 % (0-5); Hematocrit 38.1 % (37-47); Lymphocyte # 1.82 X10^3/ul (0.83-4.51); Lymphocyte % 25.8 % (19-41); Mean Corp Hgb Conc 34.1 g/dL (32-36); Mean Corpuscular Hgb 28.6 pg (27.0-32.0); Mean Corpuscular Volume 83.9 fL (81-99); Mean Platelet Vol. 8.9 fl (6.2-12.0); Monocyte% 7.1 % (0-10); NRBC Flagged by Analyzer 0 % (0-5); Neutrophil # 4.56 X10^3/uL (2.7-7.7); Neutrophil % 64.7 % (47-70); Platelet Count 384 K/mm3 (150-450); RBC Distribution Width CV 14.5 % (11.6-14.6); RBC Distribution Width SD 44.6 fl (35.1-43.9); Red Blood Count 4.54 M/mm3 (4.2-5.4); White Blood Count 7.1 K/mm3 (4.4-11.0)
[2021-07-24 10:55] LABS: Internal QC Validated? YES +Cl - CLEAR BKGD; Pregnancy, Serum, hCG Quali. NEGATIVE Negative
[2021-07-24 10:56] LABS: Alcohol, Blood (Medical)-Serum < 3.0 mg/dL
[2021-07-24 10:58] LABS: Anion Gap 5 (5-15); BUN 15 mg/dL (7-18); Calcium,Total 8.8 mg/dL (8.5-10.1); Chloride 107 mmol/L (98-107); Creatinine, Serum 0.71 mg/dL (0.55-1.02); EST Glomerular Filtration Rate 106 mL/min (>60); Est Glom Filt Rate - Afr Amer 129 mL/min (>60); Estimated Creatinine Clearance 118.81 ml/min; Glucose 93 mg/dL (74-106); Potassium 4.1 mmol/L (3.5-5.1); Sodium Level 138 mmol/L (136-145)
--- NOTE | 2021-07-24 11:08 | EX.ED.VIS.PS ---
HPI HPI - Psych History of Present Illness Chief Complaint: Suicidal Narrative Narrative: 26-year-old female presenting with suicidal thoughts. She currently has a plan to overdose on her home medications. She states she is on Zoloft and buspirone. She currently gets Latuda as well. She has not tried to ingest these yet. She states he is hearing voices and having hallucinations and she does not want them to get bad. She spoke with her counselor who sent her here to go inpatient and be treated for suicidal thoughts. Patient has a history of bipolar disorder and PTSD. PFSH PFS Medical History Anxiety Back problem Bipolar disorder, unspecified Depression Essential (primary) hypertension Frequent headaches Hearing loss in right ear History of breast lump Hypothyroidism Morbidly obese Nicotine dependence Overactive bladder PTSD (post-traumatic stress disorder) Rapid palpitations Seasonal allergies Suicidal behavior Thyroid disease Home Medications sertraline 100 mg PO QHS 09/28/20 [History Last Taken Unknown] buspirone 15 mg PO 4X/DAY 07/22/21 [History Last Taken Unknown] lurasidone [Latuda] 40 mg PO QHS 07/24/21 [History Last Taken Unknown] Allergy/AdvReac Type Severity Reaction Status Date / Time lithium AdvReac Severe lightheaded Verified 07/24/21 09:13 aripiprazole [From Abilify] AdvReac Mild nightmares Verified 07/24/21 09:13 Family History Other Alcoholism Anxiety and depression Arthritis Asthma Breast cancer COPD (chronic obstructive pulmonary disease) CVA (cerebral vascular accident) Diabetes Heart disease Hyperlipemia Hypertension Melanoma Myocardial infarction Seizures Social History Smoking Status: Current every day smoker tobacco type: cigarettes how long ago did patient quit smoking: hasn't smoked in 2 weeks alcohol intake: never substance use type: does not use caffeine: Yes (1 cup coffee) Type: coffee what type of physical activity do you participate in: none seatbelt use: always do you feel safe at home: Yes additional social history: Single-Works at [employer] ROS ED Constitutional Constitutional ED: Denies chills or fever(s) Eyes Eyes: Denies blurry vision or change in vision ENT ENT ED: Denies rhinorrhea or sore throat Cardiovascular Cardiovascular: Denies chest pain or palpitations Respiratory/Chest Respiratory/Chest: Denies cough, dyspnea or sputum Gastrointestinal Gastrointestinal: Denies abdominal pain or nausea Genitourinary Genitourinary ED: Denies dysuria or hematuria Musculoskeletal Musculoskeletal: Denies arthralgias or myalgias Integumentary Denies Abrasions or rash Neurologic Neurologic: Denies headache(s) or paresthesias Psychiatric Psychiatric: Reports anxiety, depression, suicidal ideation and suicidal thoughts EXAM Physical Exam Const Vital Signs: 07/24/21 09:14 07/24/21 10:13 07/24/21 11:13 Temperature 96.0 F L Temperature Source Temporal Pulse Rate 107 H Respiratory Rate 17 16 15 Blood Pressure 141/97 H Blood Pressure Mean 111 Pulse Ox 96 Oxygen Delivery Method Room Air 07/24/21 12:13 07/24/21 14:54 Temperature 98.1 F Temperature Source Oral Pulse Rate 95 Respiratory Rate 16 16 Blood Pressure 155/96 H Blood Pressure Mean 115 Pulse Ox 97 Oxygen Delivery Method Room Air Positive well nourished General Appearance ED: NAD HEENT Reports moist mucous membranes normocephalic and atraumatic Eyes PERRL and EOMs intact bilaterally Resp normal respiratory effort and clear to auscultation bilaterally Cardio Rate: regular rate Rhythm: regular rhythm Neuro oriented x3 and CN's II-XII intact bilaterally Sensorium / Orientation: alert Psych cooperative and speech normal Appearance: grossly normal Attitude: calm Mood & Affect: sad Thought Content: suicidality, No homicidality and hallucination(s) Positive for auditory and visual Memory / Cognition: memory grossly intact Skin Rashes: no rashes MDM MDM MDM Narrative Medical decision making narrative: Patient presenting with suicidal thoughts and a plan to overdose on her home medications. She is also hallucinating both visually and audibly. He has not attempted any ingestion yet. Patient nontoxic-appearing and appears calm. Obtain lab work for medical clearance which is normal. hCG negative. EtOH negative. Urine drug screen positive for cannabinoids. Urinalysis slightly contaminated but and she is not complaining of urinary symptoms. Patient medically cleared. She was seen by social work who agrees the patient needs to be inpatient. Social work reported me the patient was accepted at [facility]. She will be transferred when a bed is available. Impression: #1 suicidal ideation Lab Data Attestation: I reviewed the patient's lab results. Labs: Laboratory Results - last 24 hr 07/24/21 07/24/21 07/24/21 10:05 10:05 10:15 WBC 7.1 RBC 4.54 Hgb 13.0 Hct 38.1 MCV 83.9 MCH 28.6 MCHC 34.1 RDW Std Deviation 44.6 H RDW Coeff of Edmund 14.5 Plt Count 384 MPV 8.9 Immature Gran % (Auto) 0.400 Neut % (Auto) 64.7 Lymph % (Auto) 25.8 [place] % (Auto) 7.1 Eos % (Auto) 1.7 Baso % (Auto) 0.3 Absolute Neuts (auto) 4.6 Absolute Lymphs (auto) 1.82 Nucleated RBC % 0 Sodium Potassium Chloride Carbon Dioxide Anion Gap BUN Creatinine Estim Creat Clear Calc Est GFR (MDRD) Af Amer Est GFR (MDRD) Non-Af BUN/Creatinine Ratio Glucose Calcium Serum , Qual Urine Color Yellow Urine Clarity Clear Urine pH 6.0 Ur Specific [place] 1.015 Urine Protein Negative Urine Glucose (UA) Normal Urine Ketones Negative Urine Occult Blood 10 H Urine Nitrite Negative Urine Bilirubin Negative Urine Urobilinogen Normal Ur Leukocyte Esterase 500 H Urine RBC 0 SEEN Urine WBC 10-25 SEEN Ur Squamous Epith Cells 5-10 SEEN Urine Bacteria 2+ Urine Mucus 0 SEEN Urine Opiates Screen NEGATIVE Urine Methadone Screen NEGATIVE Ur Barbiturates Screen NEGATIVE Ur Phencyclidine Scrn NEGATIVE Ur Amphetamines Screen NEGATIVE MDMA (Ecstasy) Screen NEGATIVE U Benzodiazepines Scrn NEGATIVE Urine Cocaine Screen NEGATIVE U Cannabinoids Screen POSITIVE H Ur Drug Screen Comment Ethyl Alcohol 07/24/21 07/24/21 07/24/21 10:15 10:15 10:15 WBC RBC Hgb Hct MCV MCH MCHC RDW Std Deviation RDW Coeff of Edmund Plt Count MPV Immature Gran % (Auto) Neut % (Auto) Lymph % (Auto) [place] % (Auto) Eos % (Auto) Baso % (Auto) Absolute Neuts (auto) Absolute Lymphs (auto) Nucleated RBC % Sodium 138 Potassium 4.1 Chloride 107 Carbon Dioxide 26.0 Anion Gap 5 BUN 15 Creatinine 0.71 Estim Creat Clear Calc 118.81 Est GFR (MDRD) Af Amer 129 Est GFR (MDRD) Non-Af 106 BUN/Creatinine Ratio 21.0 H Glucose 93 Calcium 8.8 Serum , Qual NEGATIVE Urine Color Urine Clarity Urine pH Ur Specific [place] Urine Protein Urine Glucose (UA) Urine Ketones Urine Occult Blood Urine Nitrite Urine Bilirubin Urine Urobilinogen Ur Leukocyte Esterase Urine RBC Urine WBC Ur Squamous Epith Cells Urine Bacteria Urine Mucus Urine Opiates Screen Urine Methadone Screen Ur Barbiturates Screen Ur Phencyclidine Scrn Ur Amphetamines Screen MDMA (Ecstasy) Screen U Benzodiazepines Scrn Urine Cocaine Screen U Cannabinoids Screen Ur Drug Screen Comment Ethyl Alcohol < 3.0 Discharge Plan Triage Chief Complaint: Suicidal ED Provider: Florencio Saba Dx/Rx/DC Orders Prescriptions: No Action sertraline 50 mg tablet 100 mg PO QHS RF: 0 buspirone 15 mg tablet 15 mg PO 4X/DAY RF: 0 Latuda 40 mg tablet 40 mg PO QHS RF: 0 Primary Care Provider: Kye Covington
[2021-07-24 11:13] VITALS: RESP 15
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
[2021-07-24 12:13] VITALS: RESP 16
[2021-07-24] MEDS: busPIRone 15 MG TABLET PO (13:53)
[2021-07-24 14:54] VITALS: BP 155/96; PULSE 95; RESP 16; TEMP 36.7; O2SAT 97
== END 2021-07-24 15:42 ==
PROVIDERS: Emergency Provider Student in an Organized Health Care Education/Training Program; PCP Internal Medicine; Visit Provider Student in an Organized Health Care Education/Training Program
DX: F31.9 Bipolar disorder, unspecified (principal); R45.851 Suicidal ideations; I10 Essential (primary) hypertension; R44.3 Hallucinations, unspecified; Z87.891 Personal history of nicotine dependence; Z79.899 Other long term (current) drug therapy
CPT/HCPCS: 36415; 80048; 80307; 81001; 82077; 84703; 85025; 87811; 99285

== ENCOUNTER 2021-08-03 10:27 | Outpatient (RCR) | payer MEDICAID, SELFPAY ==
--- NOTE | 2021-08-03 10:13 | BH.SGPN.GN ---
Behaviors/Verbalizations/Mental Status: []Client alert and oriented, casually dressed and grooming appears disheveled. Eye contact good. Motor activity appropriate. Speech within normal limits. Affect congruent, mood anxious. Thoughts linear, logical, no signs of hallucinations or delusions. Client Response/Progress/Benefit: []Pt engaged throughout AEB taking notes, listening attentively, and providing input throughout. Attentive during psychoeducation and discussed the importance of goal-setting with the group. Pt indicated that goals ?help give a sense of accomplishment?. Group identified potential benefits of having goals to include: they motivate, increase self-confidence, provide a sense of accomplishment, help you begin to create healthier habits, and provide a sense of purpose. Group also worked together to identify barriers to goal-setting which included; fear of failure, lack of motivation, depression, ?I don?t care attitude?, and lack of support from others. Pt identified personal barriers to include unrealistic expectations and difficulties managing her emotions. Benefited from increased awareness of benefits and barriers to goal-setting. Pt will continue in IOP to prevent decompensation, increase healthy coping and further stabilize mood, as well as further improve daily functioning. Narrative Note: []
--- NOTE | 2021-08-03 11:10 | BH.SGPN.GN ---
Behaviors/Verbalizations/Mental Status: []Client alert and oriented, casually dressed and groomed. Eye contact good. Motor activity appropriate. Speech within normal limits. Affect congruent, mood euthymic. Thoughts linear, logical, no signs of hallucinations or delusions. Client Response/Progress/Benefit: []Pt was an active participant in group discussions and activities. Engaged in activity. Pt identified a SMART goal for the next week is to: do make-up for one day in the next week. Pt reported this would benefit her by improving self-esteem. Identified forgetfulness and apathy as potential barriers to completing this goal. Pt able to identify several solutions, such as writing it down in cyber ops planner, set alarm, and remind self of positives, that can help overcome identified barriers. Benefited from group by being able to utilize SMART educate to create a goal. Pt to continue IOP to increase healthy coping skills, challenge distorted thoughts and prevent decompensation.
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
--- NOTE | 2021-08-03 12:12 | BH.COMM_ITS ---
Communication Note - Communication with Client Communication Note: Met with patient to complete initial paperwork and gather updated information following recent inpatient hospitalization. Pt appears to be a moderate risk. Pt was escorted to the [facility] ED on 07/24/21 by this therapist following reports of increased auditory command hallucinations instructing pt to harm herself and resulting in increased SI with a plan to overdose on her psychiatric medications. Pt reports hx when she has had command hallucination of this nature they have on 2 occasions escalated to point of homicidal commands as well. Pt was hospitalized at this time and transferred to [facility] for Psychiatry. Pt was then discharged from [facility] on 07/29/21 following medication changes and stabilization. Denies any command hallucinations of suicidal ideation since that time. Reports she has experienced mild auditory hallucinations of someone speaking to her but that she is not sure what they are saying and that she is easily able to dismiss these. Denies any HI since discharge. Medication changes include: Lamotrigine 50mg/dx, Prazosin 2mg/QHS, Buspar 10mg/3x daily, Latuda 40mg/QHS, and Remeron 7.5mg/QHS. Pt additionally reports she is now living with her grandmother and feels this is a more stable environment. Denies any other changes since discharge. Denies any self-harming behaviors in past moth but reports increased urges to begin doing so. Pt has a hx of self-harming from a young age. Reports grandmother as protective factor. Denies access to knives, excess medication, or other potentially lethal means. Pt has hx of 2 prior attempts in which pt had overdosed on various medications at the age of 15 and again attempted overdose in 2015. Pt was under the influence of meth and several other drugs at time of last attempt, resulting in ICU hospitalization followed by inpatient stay. Client reports an extensive poly-substance use hx but has been sober since January 2021. Does have a hx or homicidal thoughts, noting these were specific to wanting to harm her step- mother who lives in [place] and was hospitalized twice in [place] due to these thoughts in 2014. Pt denies HI, plan or intent since then. Reports experiencing ?blackouts? at that time. Denies any current SI/HI. Case discussed with Dr. Boo with plan to admit to [facility] level of care with dx of Bipolar disorder, NOS (F 31.9).
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
--- NOTE | 2021-08-05 09:00 | BH.SGPN.GN ---
Behaviors/Verbalizations/Mental Status: []Eye contact is good. Motor activity is appropriate. Appearance is casual. Speech is appropriate. Mood is anxious. Affect is congruent. Thoughts are linear and logical. No evidence of psychosis. Reviewed daily symptom tracker sheet with no reports of suicidal ideations, plan, or intent. Client Response/Progress/Benefit: []Client was engaged throughout group session sharing and listening attentively to others. Client reported her emotion as ?uncomfortable?. This is client?s first process group session. Client reported that the voice she was hearing is now gone, which makes her feel very lonely. Client discussed that she called her grandma to combat this feeling. Client appeared to benefit from supportive feedback and group environment. Client reported wins of coming to group today and going shopping and getting clothes for herself, rather than for other people. Progress noted AEB client reaching out to supports when feeling down. Will continue IOP treatment to increase application of healthy coping skills and prevent decompensation to improve daily functioning. Narrative Note: []
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
--- NOTE | 2021-08-05 11:13 | BH.SGPN.GN ---
Behaviors/Verbalizations/Mental Status: []Client alert and oriented, neatly dressed and groomed. Eye contact good. Motor activity appropriate. Speech within normal limits. Affect congruent, mood happy. Thoughts linear, logical, no signs of hallucinations or delusions. Client Response/Progress/Benefit: []Client responded well to session, taking notes and participating in worksheet discussion. Client identified they want to take action on decreasing the voices client hears. Client wrote the goal of practicing self-compassion if client hears a voice by not beating self up and taking medication consistently. Identified taking medication consistently, talking with supports, and being honest about symptoms as strategies that can help client follow through with the goal. Appeared to benefit from identifying a small goal to benefit mental health. Client to continue IOP to prevent decompensation, gain healthy coping skills, and monitor medications and hallucinations. Narrative Note: []
[2021-08-05 11:37] VITALS: BP 157/99; PULSE 88
--- NOTE | 2021-08-05 13:21 | PCM.BH.PSYEV ---
Psychiatric Evaluation Initial Evaluation Initial Evaluation: This initial psychiatric evaluation will serve as an update as the patient was seen by me 2 weeks ago and admitted to the [facility] program in behavioral health at that time so this is a update. I last saw the patient 2 weeks ago she is a 26-year-old single female who is currently living with her 20-year-old cousin, her cousin's and their 3 children. She was admitted to the [facility] on July 22, 2021 for worsening symptoms of depression, self-harm and auditory hallucinations that tell her sometimes to harm herself. The patient was sent to the emergency room on July 24, 2021 for command hallucinations telling her to kill herself. She was to be admitted to [facility] from July 24 to July 29, 2021. Since her discharge in the past week the patient states that the auditory hallucinations have completely resolved except once a day now she has 1 voice she hears that says negative things and once in a while tells the patient to kill her self but the patient states that she yells at her voice and the voice goes away for over 12 hours. The patient has been taking her Latuda for 2 weeks now and is tolerating it well but we had questions of whether some muscle aches that began 1 week after she started Latuda could be due to Latuda. She is uncertain about this. No other side effects. She feels that her symptoms have improved since being admitted to the hospital for her hallucinations and depression. She still has mild paranoia where she feels like maybe people are looking at her but otherwise that has resolved. She denies any passive thoughts of , suicidal ideation, homicidal ideation, delusions or hallucinations except as described above. The patient states that she feels 100% better because my family seems to care about me and are more supportive than I thought they would be.. Her mood remains sometimes irritable and occasionally sad but improved. She is sleeping about 8 hours a night. Current psych medications: Lamictal 50 mg p.o. daily (x2 weeks); prazosin 2 mg p.o. nightly; Remeron 7.5 mg p.o. nightly; Latuda 40 mg p.o. nightly (on this since July 22 with food so 2 weeks). BuSpar 20 mg 3 times daily but the patient feels that she really needs to take her BuSpar 15 mg 4 times a day because she has always withdrawal symptoms when it wears off. Past psychiatric history is unchanged except for the change in her medication and the fact that the patient has 1 more psychiatric admission in June 2021. Mental status exam: The patient is a 26-year-old female who is casually dressed and groomed with good hygiene. She has no psychomotor agitation or retardation. Speech is normal rate and rhythm and fluent with no pressure. Eye contact is good. Mood is mildly depressed. Affect is full. Thought process is goal-directed and organized. Thought content: There is no evidence of passive thoughts of , suicidal ideation, homicidal ideation. Auditory hallucinations have resolved except for one voice once a day now which goes away on command and she is able to ignore it. She has mild paranoia but it does not reach delusional level. Reality testing is intact. Intelligence is average or below. Judgment is limited. Insight is limited. Impulsivity is high. Diagnosis: 1. Bipolar 1 disorder, most recent episode depression, severe with psychosis (F 31.5) 2. PTSD 3. Rule out borderline personality disorder 4. History of low thyroid but normal labs recent 5. Primary support and financial issues Plan: The patient will restart the IOP program at [facility] as the structure, support, education and group therapy will hopefully prevent worsening of the patient's symptoms which could require rehospitalization. She felt safe for the during the interview and if she does not feel safe she agrees to let us know or go to the emergency room. The risk, options, possible complications and side effects of the medications were discussed with the patient and she understands accepts these. The patient's vitamin D level is low so we will add that at next visit 50,000 IUs/week p.o. The patient is agrees and is given permission to take her BuSpar 15 mg 4 times a day as she perseverates on the fact that this helps her way more than 20 mg 3 times a day. No medication changes were made today as the patient has only been on the 40 mg of Latuda for 2 weeks and the voices have vastly improved and she may get more improvement on them. The patient is resistant to increasing her Latuda at this point.
--- NOTE | 2021-08-05 13:29 | BH.DR.ITP ---
Initial Treatment Plan Patient Information Visit Information: ADMISSION DATE: EXPECTED LOS: 4-6 weeks Problems/Symptoms Problem #1:: Mood instability Symptom:: Depression, irritability, crying, rapid mood changes, decreased concentration, guilt, recent history of suicidal ideation and auditory hallucinations Problem #2:: Anxiety Symptom:: Rumination, worry, avoidance
--- NOTE | 2021-08-07 09:00 | BH.SGPN.GN ---
Behaviors/Verbalizations/Mental Status: [] Eye contact is good. Motor activity is appropriate. Appearance is casual. Speech is Appropriate. Mood is euthymic. Affect is full. Thoughts are linear and logical. No evidence of psychosis. Reviewed daily check in sheet and no reports of suicidal ideations or intent. Client Response/Progress/Benefit: [] Pt was an active participant in group discussion. Attentive. Provided appropriate feedback. Daily symptom tracker notes 5 for anxiety and 5 for depression and anger. Mental health wins were that she went to local [employer] support group yesterday and overcame a anxiety trigger. She utilized transportation for [employer] and was in a van with several men (which is a trauma trigger). Proud of her self for utilizing skills which helped her make it through. She also had a conversation with support regarding mental health and believe that this conversation will help that support seek out treatment for her anxiety. Overall she reports that she is managing her stressors, depression, and anxiety much better after getting discharged from psych unit which she attributes to increased support, medication,and new skills. Progress noted per pt report. Benefited from group support, encouragement, and feedback. Will continue in IOP to prevent decompensation, maintain safety, and increase healthy coping. Narrative Note: []
--- NOTE | 2021-08-07 10:15 | BH.SGPN.GN ---
Behaviors/Verbalizations/Mental Status: []Eye contact is good. Motor activity is appropriate. Appearance is casual and grooming tended to. Speech is Appropriate. Mood is anxious. Affect is congruent. Thoughts are linear and logical. No evidence of psychosis Client Response/Progress/Benefit: []Pt receptive of session, engaged throughout AEB taking notes and providing input and examples to discussion. Connected with group topic of cognitive distortions and the impact of thought patterns on mental health, coping behaviors, and relationships. Reflected that her own distorted thoughts have led to making assumptions about others intentions which has caused increased conflict with her supports in the past. Discussed with the group the influence of media, environment, past experiences and current mood on vulnerability to distorted thought patterns. Shared how her own moods have influenced her behaviors for the remainder of the day and at the times led to increased anxiety or irritability. Appeared to benefit from gaining insight on distorted thinking patterns and influence of distortions on maintaining unhealthy maintenance cycles. Progress remains variable as pt external stressors and limited supports continue to impact mood stability. Recommended continued IOP treatment to improve mood stability, continue to promote healthy change behaviors, and prevent decompensation. Narrative Note: []
--- NOTE | 2021-08-07 10:20 | BH.SGPN.GN ---
Behaviors/Verbalizations/Mental Status: []Client alert and oriented, casually dressed and groomed. Eye contact good. Motor activity appropriate. Speech within normal limits. Affect congruent, mood euthymic. Thoughts linear, logical, no signs of hallucinations or delusions. Client Response/Progress/Benefit: []Client responded well to session AEB sharing and listening attentively to others. Client appeared to be actively listening to group discussion defining cognitive distortions. Clinician provided psychoeducation on ten types of cognitive distortions, their costs, and what to do to manage them. During the clinician's presentation client provided insight and personal examples of mental filtering. Client identified cognitive distortions she experiences most often, including personalization, minimization/magnification, and all or nothing thinking. Appeared to benefit from increased knowledge of cognitive distortions and self-awareness. Will continue IOP treatment to continue increasing anxiety management skills and decreasing rumination to improve daily functioning. Narrative Note: []
--- NOTE | 2021-08-10 08:48 | BH.MDN ---
Multi-Disciplinary Note - Note 60-min Individual Time Started:: 10:38 Date: 08/11/21 Purpose of session/treatment goals addressed:: Reviewed progress and current stressors from weekend impacting progress in managing mental health symptoms. Addressed treatment goals 1 and 2. Eye Contact:: Good Motor Activity:: Appropriate Appearance:: Neat, Casual Speech:: Appropriate Mood:: Anxious, Dysthymic Affect:: Congruent Thoughts:: Linear, Logical, No evidence of hallucinations/delusions noted Staff Interventions:: thought challenging, motivational interviewing, psychoeducation on: - unhealthy coping skills in maintaining depressive sx, CBT techniques - behavior chain analysis, taught coping skills - introduced STOPP skill, concept of up and down activities Client Response:: Pt receptive of session, actively engaged throughout. Reports increased depression and anxiety over the weekend, discussing that her increasingly anxious and negative mood resulted in isolating and staying in bed much of Tuesday. Pt did well to work with therapist on identifying potential triggers contributing to worsening mood as well as discuss impact of how pt coped with her emotions on maintaining her symptoms. Reports that she had visited with a friend on Tuesday for lunch and that this had been a mostly positive experience but that she has not done anything social in awhile and was therefore feeling a little anxious and overwhelmed afterwards. Pt identified that she had then pushed herself to go to several stores with her grandmother and sister, which further contributed to feelings of anxiety and overstimulation. Reports increased stress and irritability as a result. Discussed seeing a bottle of wine while shopping and having strong urges to drink, despite knowing the impacts this could have on her mental health and mood stability. Shared her grandmother had attempted to discourage her from doing so but that pt had already ?made up my mind?. Pt able to recognize self-sabotage behaviors and self-reports not trying to utilize her healthy coping skills when feeling stressed. Reviewed impacts of substance use on mood, rational thinking, and increased vulnerability to hallucinations. Pt receptive to developing a written anxiety management and emotion regulation plan for when she feels overwhelmed which we began. Identified being in nature, drawing, and going for walks as skills she most connects with. Risks/Concerns:: Denies active SI, plan, or intent. Denies delusions or hallucinations today. Future-oriented. Progress Toward Goals/Plan:: Regression per pt report. Decompensated over the weekend and admits to isolating and use of alcohol when overwhelmed. Primary trigger believed to be anxiety and overstimulation. Pt recognizes taking on more than she felt comfortable with on Tuesday. When processing with therapist she is able to identify strategies she could utilize in the future. Also with increased anxiety, ruminations, and depression she reported increased irritability but did well to refrain from lashing out on supports. Receptive of creating a healthy coping plan for emotion regulation, identified plans to begin an indoor plan habitat. Will continue in IOP to prevent decompensation, maintain safety, and increased healthy coping. Time Stopped:: 11:33
--- NOTE | 2021-08-10 09:00 | BH.SGPN.GN ---
Behaviors/Verbalizations/Mental Status: [] Eye contact is fair. Motor activity is restless. Appearance is casual. Speech is Appropriate. Mood is anxious. Affect is congruent. Thoughts are linear and logical. No evidence of psychosis. Reviewed daily check in sheet denies suicidal ideation, plan or intention to date. Client Response/Progress/Benefit: [] Pt was an active participant in group discussion. Attentive to others. Pt reported Tuesday she went shopping with her grandma which triggered significant anxiety and negative voices. Pt reported she reached out to a friend and went to friends house for support. Pt stated she didn't feel like anything was helping so she did drink a glass of wine. Pt reported she was going to hang out with the friend again on Tuesday but forgot she needed to help her grandma with cleaning. Pt stated having voices all day telling her that her friend hates her for cancelling plans. Pt reported she did feel some relief after clarifying with friend if the friend was mad. However, rest of evening was depressed because voices were non-stop. Pt stated this morning she woke up feeling more confident after having a positive dream last night. Noted mental health wins as showering, putting on make up and getting to IOP this morning. Benefited from group support, encouragement, and feedback. Will continue in IOP to prevent decompensation, improve daily functioning, and increase consistent use of healthy coping skills.
--- NOTE | 2021-08-12 08:54 | BH.SGPN.GN ---
Behaviors/Verbalizations/Mental Status: []Pt alert and oriented, casually dressed and groomed. Eye contact good, motor activity appropriate, speech within normal limits. Affect, at times incongruent AEB pt reporting feeling depressed but smiling and laughing throughout. Mood, depressed and anxious. Thoughts linear, logical, no signs of hallucinations or delusions. Reviewed pt's daily symptom tracker, no SI indicated. Client Response/Progress/Benefit: []Pt responded well to session, engaged and positive throughout. Pt reports feeling depressed this morning and discussed struggling with negative thoughts and anxiety related to the upcoming . Explained that holidays are often stressful for her and she is afraid she in not in the healthiest place mental health glez to be around so many people. Pt receptive of discussing options for setting boundaries and limiting her exposure to others in the moment is her stress levels get too high. Discussed plans to communicate her concerns and develop a healthy coping plan with her grandma [place]. Expressed that she could take breaks as needed and leave to go for a walk if needing space or time alone. Progress noted in pt ability to problem-solve and willingness to proactively plan for managing current stressors. Appeared to benefit from encouragement and supportive feedback provided by group. Will continue IOP tx to continue to continue to improve healthy boundary setting, reinforce healthy coping skills, and promote mood stability. Narrative Note: []
--- NOTE | 2021-08-12 10:00 | BH.SGPN.GN ---
Behaviors/Verbalizations/Mental Status: []Client alert and oriented, casually dressed and groomed. Eye contact good. Motor activity appropriate. Speech within normal limits. Affect congruent, mood euthymic. Thoughts linear, logical, no signs of hallucinations or delusions. Client Response/Progress/Benefit: []Client responded well to session AEB listening attentively to others. Client appeared connected throughout group discussion defining pitfalls and psychoeducation on internal and external triggers to pitfalls. Client appeared engaged throughout clinician?s presentation of psychoeducation on internal and external triggers to pitfalls. Client participated in experiential activity illustrating how easy it is to fall into pitfalls when we are unaware of them. Client aided group in problem solving and communicated throughout activity. Appeared to benefit from increased knowledge of pitfalls and their triggers. Will continue IOP treatment to continue increasing application of healthy coping skills and decreasing negative self-talk to improve daily functioning. Narrative Note: []
--- NOTE | 2021-08-12 11:05 | BH.SGPN.GN ---
Behaviors/Verbalizations/Mental Status: []Pt alert and oriented, casually dressed and groomed. Eye contact good. Motor activity appropriate. Speech within normal limits. Affect constricted, mood anxious. Thoughts linear, logical, no signs of hallucinations or delusions. Client Response/Progress/Benefit: []Pt receptive of session, engaged throughout AEB pt actively listening and contributing to discussion, as well as taking notes. Pt completed worksheet identifying personal pitfalls impacting mental health progress. Pt identified the following pitfalls: feeding into anger, lashing out, wanting to escape, and not having boundaries. Group learned different coping skills to help manage pitfalls. Pt selected the following coping skills to help with pitfalls: mindfulness, walking, and reminding herself to take care herself. Benefited from identifying personal pitfalls and strategies to overcome these pitfalls. Will continue IOP tx to monitor medication, prevent decompensation, and gain healthy coping skills. Narrative Note: []
--- NOTE | 2021-08-12 12:55 | PCM.BH.PN_ITS ---
Progress Note Progress Note: History of Present Illness/Interim History: [] The patient is a 26-year-old single female with a history of depression, self-harm and auditory hallucinations who is seen in follow-up at the [facility] behavioral health program. I last saw the patient 1 week ago. The patient states that her psychiatrist added amantadine to help with aches and muscle spasm that she began having after she started the Latuda. The amantadine has resolved those symptoms. Her clinical situation she states is otherwise pretty much unchanged. She remains depressed with some anger issues and occasional thoughts of self-harm. The auditory hallucinations are still there but have decreased greatly. She denies any command hallucinations now. She denies passive thoughts of , suicidal ideation, homicidal ideation, delusions or hallucinations. Sleep is okay at about 8 hours a night. Current Psychiatric Medications: [] Lamictal 50 mg p.o. daily; prazosin 2 mg p.o. nightly; Remeron 7.5 mg p.o. nightly; Latuda 40 mg p.o. nightly (x3 weeks now); BuSpar 15 mg p.o. 4 times daily. Amantadine 200 mg p.o. every morning (x1 week) Mental Status Examination: [] The patient is a 26-year-old female who appears normal for stated age and is casually dressed and groomed with good hygiene. She has no psychomotor agitation or retardation. Eye contact is good and speech is normal rate and rhythm and fluent with no pressure preop. Mood is depressed. Affect is full and normal. Thought process is goal-directed and organized. Thought content: There is no evidence of passive thoughts of , suicidal ideation, homicidal ideation, hallucinations or delusions. Reality testing is intact. Judgment is limited. Insight is limited. Impulsivity is high. Diagnoses: [] 1. Bipolar 1 disorder, most recent episode depressed, severe with psychosis (F 31.5) 2. PTSD 3. Probable borderline personality disorder 4. History of low thyroid 5. Primary support and financial issues Plan: [] The patient will continue the IOP program at [facility] as the structure, support, education and group therapy will hopefully prevent worsening of the patient's symptoms which might require hospitalization. She felt safe during the interview and if it anytime she does not feel safe she will let us know or go to the emergency room. The risks, options, possible complications and side effects of the medications were discussed with the patient and she understands and accepts these. The patient agrees to increase her Latuda to 60 mg p.o. in the evening with a meal. Prescription is sent in for this. The rest of her medications will continue at the same dose. At next visit next visit I will will add vitamin D 50,000 IUs/week p.o. as the patient's vitamin D was low on her last labs. I will see the patient in follow-up in 2 weeks. She will continue to follow-up with her outpatient psychiatric and medical providers.
--- NOTE | 2021-08-14 09:00 | BH.SGPN.GN ---
Behaviors/Verbalizations/Mental Status: [] Eye contact is good. Motor activity is appropriate. Appearance is casual. Speech is Appropriate. Mood is anxious. Affect is congruent. Thoughts are linear and logical. No evidence of psychosis. Reviewed daily check in sheet and no reports of suicidal ideations or intent. Client Response/Progress/Benefit: [] Pt was an active participant in group discussion. Attentive. Provided appropriate feedback. Daily symptom tracker notes 25 for anxiety and /5 for depression and urge for self-injurious behaviors. Emotion for today is anxious. Mental health win is I was able to manage anger yesterday. Also shared that she is beginning to complete her ADLs more consistently. Her mood yesterday was very irritable stating I was annoyed at everything. No specific trigger. In the past this would have led to verbal conflicts with support however she did utilize skills and not lash out at others. Stressor is upcoming family event this weekend. She doesn't believe that her family is very receptive of mental illness and gave a few examples. Group provided feedback and empathized. Encouraged pt to utilize the event as a way to highlight her new skills and her new self. Group also gave some feedback and strategies to use which was beneficial. Will continue in IOP to maintain safety, stabilize mood, and increased health coping. Narrative Note: []
--- NOTE | 2021-08-14 10:15 | BH.SGPN.GN ---
Behaviors/Verbalizations/Mental Status: []Eye contact is good. Motor activity is appropriate. Appearance is casual. Speech is Appropriate. Mood is euthymic. Affect is congruent. Thoughts are linear and logical. No evidence of psychosis. Client Response/Progress/Benefit: []Pt was an active participant in group discussion AEB taking notes and providing input throughout. Attentive during psychoeducation reviewing internal and external obstacles and provided examples throughout. Participated in the reflection activity in which clients emelina pictures depicting their current and desired reality and shared with the group. Pt shared in current reality is her sitting on the ground feeling very hopeless, lots of anger, and reaching out to his grandma and sister because knows she needs help. Shared desired reality is to be standing on her own, sees personal growth, able to manage stress more often and improved stability. Seemed to benefit from increased awareness of current functioning and identifying future goal for her mental health and functioning. Pt to continue IOP to challenge distorted thoughts, increase healthy coping skills and prevent decompensation.
--- NOTE | 2021-08-17 09:00 | BH.SGPN.GN ---
Behaviors/Verbalizations/Mental Status: [] Eye contact is good. Motor activity is appropriate. Appearance is casual. Speech is Appropriate. Mood is euthymic and positive. Affect is full. Thoughts are linear and logical. No evidence of psychosis. Reviewed daily check in sheet and no reports of suicidal ideations or intent. Client Response/Progress/Benefit: [] Pt was an active participant in group discussion. Active participant. Pt reported mental health positive as getting through holiday hang out by taking breaks when feeling overwhelmed. Pt stated additional win was directly communicating to her sister importance of her being at the holiday meal. Pt reported her sister showed up on time which pt stated made her feel very happy. Pt stated she didn't fight with her sister the entire time, which she noted as a significant win. Pt shared additional win as feeling less irritated the last few days. Pt noted current stress as being wary that she is doing so well. Pt reported she is trying to allow herself to feel positive and not expect the worst outcome. Benefited from group support, encouragement, and feedback. Will continue in IOP to prevent decompensation, continue use of healthy coping skills, and improve emotion regulation.
--- NOTE | 2021-08-17 10:15 | BH.SGPN.GN ---
Behaviors/Verbalizations/Mental Status: []Pt alert and oriented, casually dressed and groomed. Eye contact good. Motor activity appropriate. Speech within normal limits. Affect constricted, mood anxious. Thoughts linear, logical, no signs of hallucinations or delusions. Client Response/Progress/Benefit: []Pt responded well to session AEB sharing and listening attentively to others. Group discussed the benefits of managed anger and anger as a secondary emotion. Pt completed anger iceberg worksheet, reporting outward personal signs of anger as making impulsive decisions, harming others, throwing things, and drinking. Identified underlying emotions that contribute to anger including rejection, grief, and abandonment. Appeared to benefit from increased knowledge of the underlying emotions that impact anger and increased self-awareness of the internal and external consequences of anger. Will continue IOP tx to prevent decompensation, reduce the use of unhealthy coping skills, and monitor medications. Narrative Note: []
--- NOTE | 2021-08-17 11:15 | BH.SGPN.GN ---
Behaviors/Verbalizations/Mental Status: []Client alert and oriented, casually dressed and groomed. Eye contact good. Motor activity appropriate. Speech within normal limits. Affect congruent, mood euthymic, anxious. Thoughts linear, logical, no signs of hallucinations or delusions. Client Response/Progress/Benefit: []Pt was engaged throughout AEB participating in discussion and taking notes. Pt reported connecting with psychoeducation portion reviewing importance of identifying physical warning signs for anger. Contributed as group brainstormed healthy coping skills for better managing anger which included: deep breathing, journaling, focusing on what?s in their control in the moment, exercise, communicating with supports when calm, and self-reflection. Pt appeared to benefit from identifying different techniques to manage anger as well as gaining awareness of the costs of anger. Pt reported when their anger is unmanaged, pt often gets restless and ?blacks out?, resulting in lashing out on others or herself. Pt selected proactively setting boundaries and communicating with supports as strategies for better managing her anger. Will continue IOP tx to prevent decompensation, improve communication with supports, and continue to promote use of emotional regulation skills. Narrative Note: []
--- NOTE | 2021-08-19 09:00 | BH.SGPN.GN ---
Behaviors/Verbalizations/Mental Status: []Pt alert and oriented, casually dressed and groomed. Eye contact good. Motor activity appropriate. Speech within normal limits. Affect constricted, mood dysthymic. Thoughts linear, logical, no signs of hallucinations or delusions. Reviewed pt?s symptom tracker, no risk for suicidal ideation, plan, or intent as of 08/19/21. Client Response/Progress/Benefit: P[]Pt responded well to session, attentive and providing feedback. Pt reports feeling detached this morning and like I'm on autopilot forcing myself to do things. Group discussed this and normalized this feeling which pt appeared to benefit from. Pt shared despite feeling low today, she has numerous wins including utilizing calming skills instead of becoming aggressive and making it to group today when she did not want to come. Pt stated using opposite action has been helpful because the alternative is staying in bed and being depressed. Pt showing progress in application of coping skills outside of IOP. Pt will continue IOP tx to promote mood stability, further increase distress tolerance, and improve overall functioning. Narrative Note: []
--- NOTE | 2021-08-19 11:10 | BH.SGPN.GN ---
Behaviors/Verbalizations/Mental Status: []Client alert and oriented, casually dressed and appropriately groomed. Eye contact good. Motor activity appropriate. Speech WNL. Affect congrunent, euthymic. Thoughts linear, logical, no signs of hallucinations or delusions. Client Response/Progress/Benefit: []Client responded well to session AEB client listening attentively to others and providing input during group discussion on the pay offs and costs of the different communication styles. Client reported she most often uses passive and aggressive communication styles. Client stated she initially will be passive but eventually her emotions build up then will blow up and use aggressive communication. Recognizes negative impact this has on her MH and relationships. Attentive during psychoeducation on interpersonal DBT skill MARYLIN. Client seemed to benefit from increasing awareness of healthy strategies to improve communication. Client will continue IOP to improve emotion regulation, increase confidence and prevent decompensation.
--- NOTE | 2021-08-19 12:23 | BH.MDN ---
Multi-Disciplinary Note - Note 45-min Individual Time Started:: 10:20 Date: 08/19/21 Purpose of session/treatment goals addressed:: To work on goal #1 of pt's tx plan. Another goal was to address pt concerns regarding communication and healthy boundary setting with her sister. Eye Contact:: Good Motor Activity:: Appropriate Appearance:: Casual Speech:: Appropriate Mood:: Anxious, Dysthymic Affect:: Congruent Thoughts:: Linear, Logical, No evidence of hallucinations/delusions noted Staff Interventions:: psychoeducation on: - healthy communication, I statements, CBT techniques, strengths perspective, taught coping skills - Distress tolerance and emotional regulation skills Client Response:: Pt responded well to session, open to meeting with therapist. Pt appeared anxious and was tearful at times throughout. Discussed that she has been recently struggling with worsening sx of irritability, explaining that ?everything pisses me off?. Reports that her primary trigger is her sister and that although she can be a support for pt, their interactions can easily become heated and result in pt feeling more irritated. Described this as the case over the past several days as pt had been around her sister more than usual. Reported trying to utilize skills for managing her emotions, however felt none of these were effective in the moment. Upon further discussion, pt disclosed trying each skill for only a few minutes before giving up. Pt shared she struggles with patience, which makes improving her mental health and effectively coping with distress especially challenging. Pt shared wanting to set a boundary with her sister as she fears if she does not she will end up lashing out in angry and either physically or emotionally harming her sister. Expressed anxiety about doing so as she is unsure of how her sister may respond to this. Willing to complete a cost-benefit analysis with therapist, identifying that it would be worse for her mental health and potentially lead to greater conflict within the relationship with her sister if she does not establish the boundary. Discussed strategies for effectively communicating her needs, reviewing ?I? statements. Additionally reviewed anger management strategies for coping with irritability in the moment. Reviewed removing self from situation, deep breathing, and regularly checking-in with herself to recognize irritability warning signs. Risks/Concerns:: Pt denies any active suicidal ideations, plan, or intent as of 08/19/21. Pt admits to having some auditory hallucinations telling her she is making others made or is a failure but denies these are command in nature and reports easily being able to dismiss them at this time. Denies any HI. Progress Toward Goals/Plan:: Pt is consistent with attendance and reports benefitting from IOP tx. Pt continues to report mood instability, irritability, anxiety when alone, and negative thoughts. Pt reports hallucinations have remained consistent since last week, indicating they are still present but she feels capable of managing these. Reports struggling to communicate when her hallucinations are impacting her thoughts/perceptions of others such as thinking someone may be mad at her when they are not. Receptive of discussion reviewing importance of communicating this with supports and pt indicates plans to discuss with grandma. Pt also continues to struggle with impulsive control which impacts pt's relationships and ability to manage stressors. Pt receptive to working on distress tolerance skills and impulse control, reports attempting to utilize her skills in the moment but struggles with patience in doing so. Pt does report improved use of calming skills when not escalated and has been able to engage in more enjoyable activities throughout the day such as reading, milo, and regular walks. Pt will continue IOP tx to prevent decompensation, increase the use of healthy coping skills, and improve mood stability. Time Stopped:: 11:00
--- NOTE | 2021-08-20 09:00 | BH.SGPN.GN ---
Behaviors/Verbalizations/Mental Status: [] Eye contact is good. Motor activity is appropriate. Appearance is casual. Speech is Appropriate. Mood is euthymic. Affect is full. Thoughts are linear and logical. No evidence of psychosis. Reviewed daily check in sheet and no reports of suicidal ideations or intent. Client Response/Progress/Benefit: [] Pt was an active participant in group discussion. Attentive. Provided appropriate feedback. Emotion for today is thankful. Mental health win was utilize assertive and effective communication with support which led to resolving some issues. She reports that she is setting more boundaries and opening up more to support regarding her mental health struggles. She discussed the benefits that has had for her and her support. She is looking into local programs to help her get housing and work. Future-oriented. She continues to report depression and anxiety feeling on high alert. She is significantly hypervigilant in new situations and around new people which can impact her ability to seek out new people, places, and jobs. Prorgress noted per pt report. Will continue in IOP to maintain safety, stabilize mood, and improve daily functioning. Narrative Note: []
--- NOTE | 2021-08-20 10:05 | BH.SGPN.GN ---
Behaviors/Verbalizations/Mental Status: []Client alert and oriented, casually dressed and groomed. Eye contact good. Motor activity appropriate. Speech within normal limits. Affect congruent, mood euthymic. Thoughts linear, logical, no signs of hallucinations or delusions. Client Response/Progress/Benefit: []Client responded well to session AEB sharing and listening attentively to others. Client participated in group discussion defining fixed mindset and what it can look like, with client describing it as ?only seeing things one way?. Group discussed how fixed mindset affects mental health and why we use fixed thoughts. Client stated that we use fixed thoughts because we ?don?t know how to change?. Client participated in experiential activity encouraging clients to find solutions to a seemingly impossible task. Client provided problem solving throughout the activity. Client identified a fixed thought keeping her stuck as ?I can?t overcome my mental health issues?. Client appeared to benefit from increased knowledge of fixed mindset and self-awareness of personal fixed thoughts. Will continue IOP treatment to continue increasing mood stability and decreasing negative self-talk to improve daily functioning. Narrative Note: []
--- NOTE | 2021-08-20 11:10 | BH.SGPN.GN ---
Behaviors/Verbalizations/Mental Status: []Pt alert and oriented, casually dressed and groomed. Eye contact good. Motor activity appropriate. Speech within normal limits. Affect constricted, mood anxious. Thoughts linear, logical, no signs of hallucinations or delusions. Client Response/Progress/Benefit: []Pt engaged during activity and discussion AEB providing some input, connecting with peers, as well as taking notes throughout. Pt did well to engage as group worked on identifying characteristics and benefits of adopting a growth mindset. Worked with fellow participants in reframing the example fixed thoughts into growth mindset thoughts, providing support throughout. Reframed personal fixed thought of ?I?m not smart enough to get my GED? with growth mindset thought of ?I am able to graduate, and I completed school up to 11th grade.? Benefitted from discussing benefits of growth mindset and brainstorming strategies for prompting growth-mindset. Pt did express that looking at her distorted thoughts was challenging for her. Will continue IOP tx to reduce negative self-talk, improve anger management skills, and improve overall functioning. Narrative Note: []
--- NOTE | 2021-08-24 11:05 | BH.SGPN.GN ---
Behaviors/Verbalizations/Mental Status: []Client alert and oriented, casually dressed and groomed. Eye contact good. Motor activity appropriate. Speech within normal limits. Affect congruent, mood euthymic, anxious. Thoughts linear, logical, no signs of hallucinations or delusions. Client Response/Progress/Benefit: []pt was an semi-engaged participant AEB showing less participation compared to other group sessions, however did provide input when elicited by therapist and took notes. Pt processed emotions pt felt in the activity and how pt coped in the moment. Pt provided input during discussion on the types of support our supports can provide. Pt able to identify current support system and barriers that get in the way of using supports. Pt stated she receives more emotional support than she had originally thought after writing it out. Pt reported she does not receive very much tangible support because hates asking for help. Pt seemed to benefit from identifying the type of support she needs to work on improving. Pt to continue IOP to continue use of healthy coping, increase confidence and prevent decompensation.
--- NOTE | 2021-08-24 12:23 | BH.MDN ---
Multi-Disciplinary Note - Note 60-min Individual Time Started:: 09:23 Date: 08/24/21 Purpose of session/treatment goals addressed:: The purpose of this session was to address tx goal #1 including addressing factors impacting pt's mood, concentration, and tx progress. Additional purpose was to discuss tx goals moving forward. Eye Contact:: Good Motor Activity:: Appropriate Appearance:: Disheveled - stains on clothing, appearing to not have showered, Casual Speech:: Appropriate Mood:: Anxious, Depressed Affect:: Congruent Thoughts:: Linear, Logical, Other - self-report of auditory hallucinations. Staff Interventions:: thought challenging, motivational interviewing, psychoeducation on: - self-sabotage, harm's reduction, strengths perspective, treatment planning, completed risk assessment / safety planning - safety planning to address recent reports of increase urges to act impulsively or engage in self-sabotaging behaviors such as substance use., goal setting, other - discussed a plan to incorporate grandma in pt's safety plan and reviewed possible boundaries for pt to establish with herself to reduce potential engagement in high risk behaviors. Client Response:: Pt entered session anxious and expressed feeling ?down? today. Shared that her grandmother had unexpectedly been out of state for the weekend which had been difficult, however, pt reports coping with this better than she had anticipated. Expressed going into the weekend with high levels of anxiety about being in the house alone and worry about feeling lonely or unsafe. This was pt?s first time home alone since inpatient hospitalization one month prior. Shared taking steps to reach out to supports to visit with her throughout the weekend which made it easier. Pt noted having the discussion with her sister about healthy boundaries and pt need for space as she further develops healthy emotion regulation skills. Shared this had been positive and her sister was more supportive than pt had expected. Pt discussed spending time doing things she enjoys such as crocheting, listening to music, and playing with the dogs which had been helpful in improving pt?s mood and reducing anxiety. However, reported increased anxiety and panic on Tuesday after her supports had left and her grandmother had not yet returned home. Shared ?I had an anxiety attack?, describing racing thoughts and crying. Shared that this did not last longer than 45 minutes and she was able to calm herself, remind herself that she was safe, and call her sister for support. Pt proudly discussed refraining from self-harming during that time as well. Despite several areas of progress in reaching out to supports and regulating her emotions in times of stress over the weekend, pt expressed ?I don?t think I?m making enough progress?. Reports thoughts of ?what?s the point if I?m still dependent on my grandma, I should be working and living on my own by now?. Indicated knowing this expectation is unrealistic given pt progress and mental health state going into treatment. However, discussed struggling to challenge this thought and has been experiencing thoughts of wanting to give up or revert to old unhealthy means of coping as a result. Willing to discuss urges to self-sabotage on her progress and worked with therapist to identify areas of progress pt may not be giving herself credit for. Discussed strategies to prevent from engaging in self-sabotage behaviors, such as not leaving the house after a certain time or having grandma keep pt?s finances at this time to prevent high risk or impulsive behaviors. Additionally, noted this will aid pt in maintaining boundaries with her ex whom she reports recently reached out to pt. Pt agreeable and expressed plans to discuss strategies to improve the safety of pt's environment via establishing clear boundaries and asking for assistance with [facility] from [facility] this afternoon. Risks/Concerns:: Pt denies any active suicidal ideation, plan, or intent and reports her plans for her future and grandmother keep her from killing herself or relapsing. Pt does report one instance in which she experienced a command hallucination telling her to kill herself. Denies there being a direct order or plan. Denies feeling unable to dismiss or cope with this and reports it lasted a few seconds and has not recurred. Feels able to call crisis or go to the ER if she can no longer keep herself safe or her symptoms worsen. Pt reports increased irritability but no further change in hallucinations, feels like the medication is not helping pt. Pt denies HI. Pt plans to attend IOP tomorrow and staff will continue to monitor pt. Progress Toward Goals/Plan:: Due to pt's presenting symptoms today, there is a concern that pt is decompensating AEB reports of increased irritability and urges to engage in ?self-sabotaging? behaviors. Pt does continue to report improvement in ability to manage irritability and cope with voices over past two weeks. Pt also reports she does not think the medication is working which is making her feel defeated and depressed; however, recognizes her expectations for herself and progress may be unrealistic. Reports struggling to recognize daily wins as she feel she should be working and living independently by now. Pt acknowledges that current expectations may actually be hindering tx progress as she is struggling to see where she has made gains in the past three weeks. Pt stated she continues to try and use her coping skills and has been working on engaging in more activities she enjoys. Discussed expectations for tx moving forward. Pt agreeable that maintaining consistent mood stability before moving to more stressful goals regarding independent living. Pt has remained consistent with medication and attendance since admission. She continues to struggle with impulse control and emotional dysregulation skills, but her awareness and application of coping skills is improving. Pt continues to endorse negative thinking, irritability, loss of interest/connection with others, and per her DSM-5 auditory hallucinations. Pt has refrained from self harming since admission and denies any current, active SI as well. Time Stopped:: 10:26
--- NOTE | 2021-08-25 08:46 | BH.TPR ---
Treatment Plan Review Date of Admission:: 08/05/21 Date of Treatment Plan Review:: 08/26/21 Admitting Diagnoses:: 1. Bipolar 1 disorder, most recent episode depressed, severe with psychosis (F 31.5). 2. PTSD. 3. Probable borderline personality disorder Current Diagnoses:: 1. Bipolar 1 disorder, most recent episode depressed, severe with psychosis (F 31.5). 2. PTSD. 3. Probable borderline personality disorder Patient's Response to Treatment:: Pt has responded well to treatment AEB pt consistently attending IOP sessions, engaging in group and individual sessions, and reports of consistently taking medications. Pt contributes well during individual sessions and is receptive to learning new skills and getting feedback. Pt reports connecting with peers during group sessions and finds the skills she is learning to be helpful in better managing her mental health sx. Reports however recently feeling she is not making as much progress as she would like. Self-reports struggling with consistently implementing skills or giving them time to take effect before giving up or trying something different which may impede progress. Pt is additionally gaining insight into warning signs, triggers, and sx which may also be contributing to recent increase in DSM scores. Status of Current Problems and Symptoms: Pt's symptoms are resolving in the area of thoughts of wanting to harm herself, but have either seen an increase or maintained the same in other areas. This may be in part due to pt difficulties with consistent skill application and struggling to allow her skills time to take effect. Pt additionally self-reports struggling with setting healthy boundaries which has led to pt being around triggering people or environments, ultimately contributing to increased levels of irritability and anxiety. Pt is able to see the importance of establishing healthy boundaries and advocating for her mental health needs in improving symptoms. Pt additionally self-reports she has been speaking with her ex again which has been a trigger for self-sabotaging behaviors in the past and may be contributing to current expressed urges. Pt does appear to disqualify the progress she has made as she reports increased distress tolerance and ability to manage triggers causing irritability and anxiety without escalating to point of panic or lashing out at herself or others. Pt has additionally refrained from rehospitalization, denies active SI, and reports improved ability to manage her auditory hallucinations. Although her problems are ongoing, her ability to cope is improving. Pt however would most significantly benefit from limiting exposure to potential triggers, especially triggers to engage in high-risk behaviors. Problem #1 Problem Name:: mood instability, auditory hallucinations, Depression, SI. Status of Goals:: Objective 1- partially complete. Pt? reports improving mood stability and is more actively able to apply skills when feeling triggered or experiencing mood swings. Pt also has learned various coping skills to manage mood symptoms. However, pt struggles significantly with consistency, limiting exposure to unnecessary or potentially toxic people/stressors, and setting boundaries. Pt sx for depression and irritability have increased which may be a result of inconsistent application and pt self-reported unrealistic expectations for her progress at this time. Pt does self-report improved ability to manage auditory hallucinations however. Objective 2- in progress. Pt has gained awareness of cognitive distortions, however struggles with recognizing and challenging these in the moment. Team Recommendations:: Treatment tx recommends that pt continue working on treatment goals to increase impulse control, reduce hallucinations, and improve daily functioning. Pt encouraged to continue taking medications as prescribed, practicing distress tolerance skills, and reducing exposure to potential triggers for irritability/impulsivity. Pt recommended to continue to work on healthy boundary setting with herself and her supports, specifically limiting contact with individuals she knows are using substances and may trigger pt urges to use. Problem #2 Problem Name:: Anxiety, PTSD Status of Goals:: Objective 1- partially complete, ongoing work encouraged. Pt?s DSM-5 scores for anxiety have remained the same since admission. Pt can identify several calming skills for managing anxiety however struggles with consistent use and allowing time for skills to take effect before trying something different or assuming they wont work, which may be reinforcing some of her anxiety. Pt continues to struggle with managing triggers related to expectations of herself, being alone, and her relationships, but she is working on this. Objective 2- in progress. Pt has been given psychoeducation on common PTSD sx and how these contribute to anxiety, however struggles with recognizing her own. She has been able to set a boundary limiting time with her sister following identifying that this may be a trauma trigger for her. Team Recommendations:: Treatment tx recommends that pt continue working on treatment goals to reduce anxiety and improve daily functioning. Pt encouraged to continue taking medications as prescribed, practicing mindfulness and emotional regulation skills, and working to create a more balanced daily routine to prevent overwhelming herself.
== END 2021-08-29 23:59 ==
LOC: BHIOP 10:27
PROVIDERS: PCP Internal Medicine; Referring Provider Psychiatry & Neurology Psychiatry; Visit Provider Psychiatry & Neurology Psychiatry
DX: F31.5 Bipolar disorder, current episode depressed, severe, with psychotic features (principal); F43.10 Post-traumatic stress disorder, unspecified
CPT/HCPCS: 90792; 99213; H2012; H2020; S9480; T1002; 90834; 90837

== ENCOUNTER 2021-08-31 07:58 | Outpatient (RCR) | payer MEDICAID, SELFPAY ==
[2021-08-30 00:45] VITALS: BP 157/99; PULSE 88
--- NOTE | 2021-08-31 08:44 | BH.MDN_ITS ---
Multi-Disciplinary Note - Note 45-min Individual Time Started:: 11:28 Date: 08/31/21 Purpose of session/treatment goals addressed:: To work on goal #1 of pt's treatment plan and to discuss healthy vs. unhealthy relationships Eye Contact:: Good Motor Activity:: Appropriate Appearance:: Casual Speech:: Appropriate Mood:: Anxious, Irritable, Depressed Affect:: Constricted Thoughts:: Linear, Logical, No evidence of hallucinations/delusions noted Staff Interventions:: thought challenging, motivational interviewing, psychoeducation on: - healthy boundaries, CBT techniques, strengths perspective Client Response:: Pt responded well to session, open to meeting with therapist. Pt shared about a recent influx in sx of depression and irritability over the past week. Discussed that she has been specifically struggling with irritability towards her grandmother and sister, noting ?the voices keep telling me they don?t care and that they?re mad at me?. Pt and therapist discussed that potential changes in routine, environment, and stressors could be contributing to pts x as well. Pt noted that she has recently begun speaking with her ex- boyfriend again and that this has been a source of conflict between pt and her supports. Shared that her supports believe her ex is a bad influence and toxic for pt. Pt shared feeling judged and frustrated by this, able to see how this may be contributing to increased irritability towards her supports as well. Pt and therapist had a long conversation regarding where her supports concerns may stem from and whether there is any validity to these concerns. Discussed characteristics of healthy vs. unhealthy relationships and aided pt in identifying which characteristics are displayed in her current relationship with her ex. Identified the relationship has a lot of hx which has made it hard for pt to accept it?s unhealthy or toxic nature, but she ultimately realizes her mental health and ability to make healthy choices is impacted when interacting with him. Discussed feeling obligated to continue the relationship given their hx, pt?s mixed emotions, and pt beliefs she needs to be a support for her ex as he has been a support for her in the past. Challenged these distortions and worked with pt on identifying strategies to begin setting boundaries within the relationship. Risks/Concerns:: Pt denies any active suicidal ideations, plan, or intent as of 08/31/21. Pt expressed frustrations towards stressors and people in her life, but no HI. Reports increased auditory hallucinations, however denies these are command in nature and reports she is able to manage these at this time. Progress Toward Goals/Plan:: Pt continues to struggle with impulse control and emotional regulation skills, but her awareness and application of coping skills is improving. Pt continues to endorse depression, irritability, negative thinking, auditory hallucinations. However, pt has not reported any command hallucinations. Reports improved ability to manage sx without lashing out on others. Continues to struggle with healthy boundaries and communicating with supports. Will continue IOP tx to improve mood stability, continue to promote healthy communication with supports, and prevent decompensation. Time Stopped:: 12:08
--- NOTE | 2021-08-31 09:00 | BH.SGPN.GN ---
Behaviors/Verbalizations/Mental Status: []Pt alert and oriented, neatly dressed and groomed. Eye contact good. Motor activity restless. Speech within normal limits. Affect constricted, mood depressed. Thoughts linear, logical, no signs of hallucinations or delusions. Reviewed pt?s symptom tracker, no risk for suicidal ideation, plan, or intent as of 08/31/21. Client Response/Progress/Benefit: []Pt responded well to session, receptive to feedback and providing encouragement to peers. Pt reports feeling gloomy this morning due to her depression being very bad. Pt able to see progress that she has not allowed herself to completely fall back into unhealthy habits. Pt stated in the past she would have quit treatment when faced with a setback. Pt also recognizes that she is utilizing opposite action which has helped pt practice self-care. Pt report feeling frustrated as well because for the past two days her auditory hallucinations have been really bad and pt is not sure why. Group offered support and ideas for coping which pt reported benefitting from. Pt will continue IOP tx to prevent decompensation, increase awareness, and reduce self-sabotaging behaviors. Narrative Note: []
--- NOTE | 2021-08-31 10:10 | BH.SGPN.GN ---
Behaviors/Verbalizations/Mental Status: []Client alert and oriented, casually dressed and groomed. Eye contact good. Motor activity appropriate. Speech within normal limits. Affect congruent, mood dysthymic, agitated. Thoughts linear, logical, no signs of active hallucinations or delusions. Client Response/Progress/Benefit: []Client engaged during session AEB taking notes, providing input, and completing worksheet. Connected with discussion on crisis and how coping with external crises by using unhealthy coping skills could result in a personal crisis. Shared personal examples of this happening in her own life and the impacts this has had on her relationships and mental health long-term. Group reflected on the importance of having awareness of personal warning signs to prevent reaching crisis point. Group identified potential warning signs for crisis and client completed the personal warning signs worksheet. Client identified personal crisis warning signs to include: loss of enjoyment, apathy, and irritability. Client benefited by increasing awareness of what leads to crisis and personal warning signs. Client will continue IOP tx to prevent decompensation, improve use of healthy skills learned and continue to encourage boundaries with unhealthy people in her life, as well as improve daily functioning. Narrative Note: []
--- NOTE | 2021-09-01 09:00 | BH.SGPN.GN ---
Behaviors/Verbalizations/Mental Status: []Pt alert and oriented, casually dressed and groomed. Eye contact good, motor activity appropriate, speech within normal limits. Affect, congruent. Mood, euthymic, agitated, and anxious. Thoughts linear, logical, no signs of hallucinations or delusions. Reviewed pt's daily symptom tracker, no SI, plan, or intent reported on this date. Client Response/Progress/Benefit: []Pt responded well to session, engaged and attentive throughout. Pt reports emotion of the day as ?appreciative, noting that she has plans to meet with someone from [facility] to discuss their work readiness programs. Pt shared looking forward to this and feeling optimistic about her plans for her future. Shared currently struggling with ongoing difficulties in managing her sx of irritability, noting ?I?m irritated with being irritated?. Discussed that she has been using some skills to prevent from lashing out on others and has been able to mostly manage her mood in the moment but is becoming increasingly impatient with her ongoing sx. Identified that discussing her frustrations with her supports would likely be helpful but that she continues to struggle with allowing herself to be completely transparent with supports regarding her mental health. Able to challenge this and identify benefits of ongoing communication. Appeared to benefit from reflecting on progress in managing her mood and supportive feedback provided by group. Will continue IOP tx to reinforce healthy coping skills and promote mood stability, as well as continue to encourage healthy boundary setting. Narrative Note: []
--- NOTE | 2021-09-01 10:10 | BH.SGPN.GN ---
Behaviors/Verbalizations/Mental Status: []Client alert and oriented, casually dressed and groomed. Eye contact good. Motor activity appropriate. Speech within normal limits. Affect congruent, mood anxious. Thoughts linear, logical, no signs of hallucinations or delusions. Client Response/Progress/Benefit: []Pt was an active participant in group discussion and experiential activity. Attentive during psychoeducation. Group had an interactive discussion on the benefits of emotional regulation in which pt provided insight. Group identified several benefits to emotional regulation. Group also was able to identify how emotions can impact our communication leading to: using hurtful words, shutting down, feeling scattered and making assumptions.. Pt participated in experiential activity and reported she chose do the anxious thing by making self engage in activity despite wanting to avoid. Benefited from increased awareness into how emotions can impact one's ability to effectively communicate. Will continue IOP tx to continue use of healthy coping skills, challenge negative thoughts and prevent decompensation.
--- NOTE | 2021-09-01 11:10 | BH.SGPN.GN ---
Behaviors/Verbalizations/Mental Status: []Pt alert and oriented, disheveled appearance. Eye contact good. Motor activity appropriate. Speech within normal limits. Affect congruent, mood dysthymic. Thoughts linear, logical, no signs of hallucinations or delusions. Client Response/Progress/Benefit: []Pt engaged in session AEB pt listening attentively to peers and providing input. Attentive during psychoeducation on 4 zones of regulation. Pt able to identify feelings and behaviors for each zone. Pt identified coping skills one can use to support self in each zone. Pt reported she is in the ?blue and yellow? zones today as she feels depressed but also irritated. Pt reports she needs to practice a calming meditation today to help herself today. Benefited from increased education on zones of regulation or stages of alertness for emotions and healthy coping skills to use for each zone. Will continue IOP tx to increase application of healthy coping skills and reduce self-sabotaging behaviors to improve mood. Narrative Note: []
--- NOTE | 2021-09-02 09:00 | BH.SGPN.GN ---
Behaviors/Verbalizations/Mental Status: []Pt alert and oriented, casually dressed and groomed. Eye contact good. Motor activity restless. Speech within normal limits. Affect congruent, mood euthymic. Thoughts linear, logical, no signs of hallucinations or delusions. Reviewed pt?s symptom tracker, no risk for suicidal ideation, plan, or intent as of 09/02/21. Client Response/Progress/Benefit: []Pt responded well to session, attentive and providing supportive statements. Pt reports feeling happy this morning and shared her mood has improved from earlier this week. Pt reports she has been hearing less voices today and she has not relapsed on drugs which in the past a depressed mood would have triggered. Pt shared she has been practicing daily self-care including showering, taking her medications, doing her makeup, and practicing healthy coping skills. Pt is slightly anxious today because tomorrow pt goes to [employer] to discuss a job opportunity. 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 Pt appeared to benefit from reflecting on her improved mood through using coping skills. Will continue IOP tx to promote gains, improve overall functioning, and further increase emotional regulation skills. Narrative Note: []
--- NOTE | 2021-09-02 10:05 | BH.SGPN.GN ---
Behaviors/Verbalizations/Mental Status: [] Eye contact is good. Motor activity is appropriate. Appearance is casual. Speech is Appropriate. Mood is depressed. Affect is full. Thoughts are linear and logical. No evidence of psychosis. Client Response/Progress/Benefit: [] Pt was an active participant in group discussion. Attentive during psychoeducation on different anxiety disorders. Along with peers participated in an interactive discussion on defining anxiety, identifying physiological symptoms of anxiety, and identifying safety behaviors (behaviors used to ease anxiety or discomfort which are often unhealthy). Physiological symptoms reported by patient were tight chest, leg shaking, face warm, and talking excessively. Along with peers identified common safety behaviors including; sleeping to cope, cancelling plans, not answering the phone, and utilizing substances to numb the pain. Benefited from increased awareness and insight on anxiety and its impact. Will continue in IOP to maintain safety, increase healthy coping, and improve functioning. Narrative Note: []
--- NOTE | 2021-09-02 12:17 | PCM.BH.PN_ITS ---
Progress Note Progress Note: And history of Present Illness/Interim History: [] The patient is a 26-year-old single female with a history of depression, self-harm and auditory hallucinations who is seen in follow-up at the [facility] behavioral health IOP program. I last saw the patient 3 weeks ago and at that time we increased her Latuda to 60 mg p.o. daily with a meal in the evening. Patient states she has been compliant with this medication change and feels that her mood improved in stability and her depression improved in the last few weeks taking the higher dose of Latuda. She states that in the past few days she got depressed and the voice and worsened on a few days but has improved then yesterday and today. She feels her PTSD was triggered last week when she began hanging out with an ex-boyfriend. She states that she has realized that because of the way her ex-boyfriend asked towards her and her me ntal health issues that she does not want to see him anymore and he is not good for her. She states that her auditory hallucinations are still there at baseline but she is able to ignore them. She denies any command hallucinations. She states that she had a new hallucination in the past week that sounds like a flock of birds. And is mostly present at night. She denies passive thoughts of , suicidal ideation, homicidal ideation, or any other delusions or hallucinations. Her sleep remains improved at about 8 hours a night. Current Psychiatric Medications: [] Lamictal 100 mg p.o. daily (dose increased 3 weeks ago); prazosin 2 mg p.o. nightly; Remeron 7.5 mg p.o. nightly; Latuda 60 mg p.o. nightly with a meal (x3 weeks now); amantadine 200 mg p.o. every morning (x1 month now); BuSpar 15 mg p.o. 4 times daily Mental Status Examination: [] The patient is a 26-year-old female who appears normal for stated age and is casually dressed and groomed with good hygiene. She has no psychomotor agitation or retardation and is ambulatory with a normal gait. Eye contact is good and speech is normal rate and rhythm and fluent with no pressure. Mood is mildly depressed to euthymic today. Affect is full and normal. Thought process is goal-directed and organized. Thought content: There is no evidence of passive thoughts of , suicidal ideation, homicidal ideation, hallucinations or delusions. Except her baseline auditory hallucinations which she is able to ignore. Reality testing is intact. Judgment is limited but improving. Insight is limited but improving. Impu lsivity is high. Diagnoses: [] 1. Bipolar 1 disorder, most recent episode depressed, severe with psychosis (F31.5); improving/resolving 2. PTSD 3. Borderline personality disorder 4. History of low thyroid 5. Primary support and financial issues Plan: [] The patient will continue the IOP program at [facility] as the structure, support, education and group therapy will hopefully prevent worsening of the patient's symptoms which might require hospitalization. She felt safe during the interview and if it anytime she does not feel safe she will let us know or go to the emergency room. The risks, options, possible complications and side effects of the medications were again discussed with the patient and she understands and accepts these. No medication changes were made today except vitamin D to was added at 50,000 units/week because the patient had a low vitamin D on blood work checked recently. Her TSH screen was normal. She will continue to follow-up with her outpatient medical and psychiatric providers and I will see the patient in follow-up while she is in the IOP program.
--- NOTE | 2021-09-07 09:00 | BH.SGPN.GN ---
Behaviors/Verbalizations/Mental Status: []Pt alert and oriented, casually dressed and groomed. Eye contact good. Motor activity appropriate. Speech within normal limits. Affect congruent, mood irritable and resentful. Thoughts linear, logical, no signs of hallucinations or delusions. Reviewed pt?s symptom tracker, no risk for suicidal ideation, plan, or intent as of 09/07/21. Client Response/Progress/Benefit: P[]Pt responded well to session, attentive and receptive to feedback. Pt reports feeling resentful this morning as pt shared she had a lot of triggers this weekend. Pt shared Mother's Day is always a trigger for pt because pt's mother when pt was a teenager. Pt also feels resentful because her father's birthday is today and pt's father is not around. Pt shared in the past she would have lashed out or used other unhealthy coping skills because of these triggers, but pt has been able to refrain. Pt stated she did not fight with her sister and pt's auditory hallucinations have decreased which is progress. 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 Pt will continue IOP tx to promote use of distress tolerance skills, improve mood stability, and increase emotional regulation skills. Narrative Note: []
--- NOTE | 2021-09-07 09:27 | BH.MDN ---
Multi-Disciplinary Note - Note 30-min Individual Time Started:: 08:40 Date: 09/07/21 Purpose of session/treatment goals addressed:: To discuss treatment progress and areas of continued struggle in managing mental health sx. Another goal was to begin creating a maintenance plan, as well as discuss discharge and aftercare. Eye Contact:: Good Motor Activity:: Appropriate Appearance:: Casual Speech:: Appropriate Mood:: Euthymic, Anxious Affect:: Congruent Thoughts:: Linear, Logical, No evidence of hallucinations/delusions noted Staff Interventions:: thought challenging, CBT techniques - challenged client use of distortions, discharge planning - began maintenance plan and reviewed skills for continued use. Discussed aftercare plans/resources, strengths perspective Client Response:: Client responded well to session, open to meeting with therapist. Client reports having a difficult end to her weekend, but overall feels she has been doing well to cope. Client explained that yesterday, Mother?s Day, was somewhat emotionally hard for her as her mother when she was 17. Noted that she still was able to enjoy celebrating her Grandmother, who has been a mother figure for client, and described having family and friends over throughout the day which helped client to keep from isolating. Shared that grief and frustration about not being able to spend the day with her own mother hit later in the evening when alone. Did well to practice acknowledging her emotions and processing them in healthy ways, through giving herself space to grieve, cry, and then do something positive to prevent herself from allowing her grief to consume her mood the remainder of the night. Shared she had brief urges to self-harm and successfully applied positive self-talk and grounding skills to refrain from doing so. Client Proudly shared she has not self-harmed since being in the IOP program and feels this is personally one of her most meaningful accomplishments. Client reflected on additional areas of progress and shared feeling nervous but ready for IOP discharge next week. Discussed that her biggest concern is in dealing with loneliness and anxiety while her grandmother is at work during the days. Shared this is getting easier to manage, but she continues to struggle on days her grandmother works long hours. Client indicates that she did however meet with a employment evaluator/case manager from the [employer] program and scheduled to begin their workforce readiness program 09/21/21 following her completion in the IOP program. Noted that this will help to fill some of her time during the day which will aid in reducing loneliness as well. Shared looking forward to taking steps to secure her high school diploma, as well as get back into the workforce. Risks/Concerns:: Client denies any suicidal ideations, plan, or intent as of 09/07/21. Client denies any homicidal ideations. Progress Toward Goals/Plan:: Client is progressing well AEB self-report of improved functioning at home and improved ability to manage stressors in the moment. Client is utilizing healthy coping skills more consistently and she is isolating much less. Client continues to report anxiety in times she is alone, a depressed mood (although greatly decreased in intensity), irritability, and mood swings. Despite this symptoms, client reports a significant improvement in her ability to manage sx. Reports fewer instances of lashing out on others or herself, reduced severity and duration of anxiety, and improved ability to prevent crisis escalation. Client has refrained from self-harming since [facility] admission which is significant as well. Client is improving in her ability to recognize warning signs and triggers and is better managing them proactively. Reports improved boundaries in the past week as well and better communication with supports/ Client regularly meets with her psychiatrist at [facility] for ongoing medication management, is connected with [email or web address] for weekly counseling as well. Client will be beginning the [facility] work program following IOP completion next week. Discussed aftercare and client will talk to her employment evaluator/case manager at [employer] about this. Client will continue for one more week in [facility] tx to promote daily functioning and reinforce healthy coping skills. Time Stopped:: 09:11
--- NOTE | 2021-09-07 10:00 | BH.SGPN.GN ---
Behaviors/Verbalizations/Mental Status: []Eye contact is good. Motor activity is appropriate. Appearance is casual and grooming tended to. Speech is Appropriate. Mood is anxious and euthymic. Affect is congruent. Thoughts are linear and logical. No evidence of psychosis Client Response/Progress/Benefit: []Pt receptive of session, actively engaged throughout AEB taking notes and providing input and examples to discussion. Appeared to connect with group topic of cognitive distortions and the impact of thought patterns on mental health, coping behaviors, and relationships. Reflected that she personally tends to struggle with distortions of: ?jumping to conclusions?, ?labeling?, and ?personalization?. Provided an example of jumping to conclusions in client?s own life, indicating that she struggles with assuming someone is going to say ?no? or not want to help before even asking them. Client appeared to benefit from gaining insight on distorted thinking patterns and influence of distortions on maintaining unhealthy maintenance cycles. Progress noted in pt report of improved mood stability and reduced hallucinations. Recommended continued IOP treatment to further improve anxiety and mood management, continue to promote healthy coping behaviors, and prevent decompensation. Narrative Note: []
--- NOTE | 2021-09-07 11:10 | BH.SGPN.GN ---
Behaviors/Verbalizations/Mental Status: []Client alert and oriented, casually dressed and groomed. Eye contact fair. Motor activity appropriate. Speech within normal limits. Affect congruent, mood anxious. Thoughts linear, logical, no signs of hallucinations or delusions. Client Response/Progress/Benefit: [] Pt was an actively engaged participant in Cognitive Distortions Jeopardy and utilized notes from psychoeducation on cognitive distortions to assist peers in correctly answering questions. Experiential activity was beneficial as it provided a way for pt to review notes and handouts during psychoeducation to answer questions about cognitive distortions. Patient reported she realizes she often utilizes the jumping to conclusions distortion which has resulted in increased isolation. Pt was given a thought log to complete for homework. Patient To continue IOP level of care to continue use of healthy coping skills, increase confidence, and prevent decompensation.
--- NOTE | 2021-09-10 09:05 | BH.SGPN.GN ---
Behaviors/Verbalizations/Mental Status: [] Eye contact is good. Motor activity is appropriate. Appearance is casual. Speech is Appropriate. Mood is euthymic. Affect is full. Thoughts are linear and logical. No evidence of psychosis. Reviewed daily check in sheet and no reports of suicidal ideations or intent. Client Response/Progress/Benefit: [] Pt participated at times during the group discussions. Attentive. Daily symptom tracker notes no significant distress. Emotion for today is hyper. Shared that she may be in a hypomanic episode stating that she feels energetic and motived to clean. States I'm going to go with it. She was able to identify some strategies to monitor her mood and group strongly encouraged her to take her medications for mood and sleep pointing out that when in that state people often don't take med to prolong feeling. Family is aware that she is hyopmanic per pt report in order to monitor for sleep, impulsivity, and poor decision making. Pt reports sleeping last night and was not display any rapid/pressure speech, disorganized thoughts, or emotional lability this AM. Progress noted per pt report. Will continue in IOP to maintain gains, prevent decompensation, stabilize mood, and improve functioning. Narrative Note: []
--- NOTE | 2021-09-10 10:05 | BH.SGPN.GN ---
Behaviors/Verbalizations/Mental Status: []Client alert and oriented, casually dressed and groomed. Eye contact good. Motor activity appropriate. Speech within normal limits. Affect congruent, mood anxious and dysthymic. Thoughts linear, logical, no signs of hallucinations or delusions. Client Response/Progress/Benefit: []Client responded well to session AEB providing input throughout discussion on healthy relationships and listening attentively to others. Group discussed the benefits of healthy relationships and factors that contribute to relationships becoming unhealthy. Client provided examples of factors, including unhealthy coping skills, past negative experiences, and not managing your own mental health sx. Client participated in experiential activity modeling healthy relationship behaviors, providing support and aiding in problems-solving with fellow participants. Appeared to benefit from increased knowledge of the benefits of healthy relationships and characteristics of unhealthy relationships. Will continue IOP treatment to prevent decompensation, continue to promote mood stability, and encourage healthy change behaviors. Narrative Note: []
--- NOTE | 2021-09-10 11:08 | BH.SGPN.GN ---
Behaviors/Verbalizations/Mental Status: []Client alert and oriented, casually dressed and groomed. Eye contact good. Motor activity appropriate. Speech within normal limits. Affect congruent, mood euthymic. Thoughts linear, logical, no signs of hallucinations or delusions. Client Response/Progress/Benefit: []Client responded well to session, actively engaged AEB providing input and taking notes. Worked with group to process challenge activity from previous group and identify how barriers and strengths demonstrated in activity can relate to those within own personal relationships. Able to identify healthy and unhealthy forces impacting her own current relationships. Client identified open communication, trust, honesty, and support for one another as current strengths within the relationship with her sister. Noted that her own difficulties with power and control, as well as their respective mental health struggles have unhealthy impacts on the relationship. Client reflected that she would like to work on continuing to maintain healthy boundaries and communicating her need for a break at times to continue to improve the health of this relationship. Appeared to benefit from reflecting upon personal relationship strengths, as well as brainstorming strategies to build healthier relationships. Pt recommended to continue IOP tx to maintain mood stability, continue working on building healthy coping skills and prevent decompensation. Narrative Note: []
--- NOTE | 2021-09-15 09:05 | BH.SGPN.GN ---
Behaviors/Verbalizations/Mental Status: [] Eye contact is good. Motor activity is appropriate. Appearance is casual. Speech is Appropriate. Mood is euthymic. Affect is full. Thoughts are linear and logical. No evidence of psychosis. Reviewed daily check in sheet and no reports of suicidal ideations or intent. Client Response/Progress/Benefit: [] Pt was an active participant in group discussion. Attentive. Daily symptom tracker notes 07/04 for anxiety. Mental health wins include managing a trigger in public. She discussed the trigger, why it was a triggers, how she would have reacted in the past and how she reacted yesterday. She was able to process and work through the trigger and the thoughts and emotions associated with it more effectively yesterday. She remains hopeful about the future and discussed upcoming housing and job possibilities. Improved sleep. Progress noted per pt report. Benefited from group support and encouragement. Will continue in IOP to maintain gains and prevent decompensation. Plan to discharge next session. Narrative Note: []
--- NOTE | 2021-09-15 10:10 | BH.SGPN.GN ---
Behaviors/Verbalizations/Mental Status: [] Eye contact is good. Motor activity is appropriate. Appearance is casual. Speech is Appropriate. Mood is anxious. Affect is congruent. Thoughts are linear and logical. No evidence of psychosis. Client Response/Progress/Benefit: [] Pt was an active participant in group discussions. Attentive during psycho-education on 4 types of conflict styles (Competing, Collaborating, Avoiding, and Accommodating). Worked with group to define conflict and identify how conflict is helpful. With peers identified barriers to addressing or managing conflict which included: fear of upsetting others, embarrassing self, abandonment, past negative experiences with conflict, and shutting down. Pt believes her conflict style is mostly accommodating Benefited from group due to increase insight and awareness of conflict, conflict styles, and obstacles to managing conflict. Pt to continue IOP to continue use of healthy coping, maintain safety and prevent decompensation. Narrative Note: []
--- NOTE | 2021-09-16 09:00 | BH.SGPN.GN ---
Behaviors/Verbalizations/Mental Status: [] Eye contact is good. Motor activity is appropriate. Appearance is casual. Speech is Appropriate. Mood is euthymic. Affect is full. Thoughts are linear and logical. No evidence of psychosis. Reviewed daily check in sheet and no reports of suicidal ideations or intent. Client Response/Progress/Benefit: [] Pt was an active participant in group discussion. Attentive. Provided appropriate feedback. Mental health wins include being excited to go to the store today with her grandma. Pt notes this as a win because she typically is extremely anxious about having to go out in public. Identified additional mental health win as challenging negative thoughts when has thoughts that her grandma things pt is a burden. Pt stated she also openly communicates with her grandma when needed. Identified current stressor as having some back issues which have made cleaning and other tasks more difficult. Pt stated she has made appointment to see a doctor which she notes as progress because she usually avoids medical appointments. Emotion is lively. Benefited from group support, encouragement, and feedback. Will continue in IOP to maintain gains. Plan is to discharge next IOP session.
--- NOTE | 2021-09-16 10:07 | BH.SGPN.GN ---
Behaviors/Verbalizations/Mental Status: []Pt alert and oriented, casually dressed and groomed. Eye contact good. Motor activity appropriate. Speech within normal limits. Affect congruent, mood anxious and euthymic. Thoughts linear, logical, no signs of hallucinations or delusions. Client Response/Progress/Benefit: []Pt responded well to session, attentive and participating in activity. Pt nodding in connection and contributing to discussion on what fear of failure means and what contributes to the development of fear of failure. Group shared that the fear of failure can lead to isolation, self-sabotage, pushing people away, over-committing oneself, avoidance, and not asking for help. Pt shared ?we give up before trying out of fear that something bad will happen?. Identified fear of failure keeping her from getting help with her mental health or opening up to supports in the past. Pt appeared to benefit from gaining awareness of the impact fear of failure can have on one?s mental health and wellbeing. Progress noted in improved mood, improved self-care, and group contribution. Will continue IOP tx to maintain gains, improve mood stability, and prevent decompensation. Narrative Note: []
--- NOTE | 2021-09-16 11:08 | BH.SGPN.GN ---
Behaviors/Verbalizations/Mental Status: []Pt alert and oriented, casually dressed and groomed. Eye contact good. Motor activity appropriate. Speech within normal limits. Affect congruent, mood euthymic. Thoughts linear, logical, no signs of hallucinations or delusions. Client Response/Progress/Benefit: []Pt responded well to session, engaged in the experiential activity and attentive throughout group processing. Pt reported fear of failure has kept pt from ?starting my own life? and quitting smoking. Pt completed fear of failure worksheet and was able to identify thoughts and behaviors that reinforce personal fear of failure including magical thinking, avoidance, negative core beliefs, and negative self-talk. Pt participated in small group discussion regarding strategies to overcome fear of failure. Identified wanting to work on sticking to a schedule of self-care when she discharges from IOP. Appeared to benefit from increased knowledge of strategies to combat fear of failure and gaining self-awareness. Pt will continue IOP tx for one more day to reinforce healthy coping skills and establish aftercare. Narrative Note: []
--- NOTE | 2021-09-17 09:10 | BH.SGPN.GN ---
Behaviors/Verbalizations/Mental Status: [] Eye contact is good. Motor activity is appropriate. Appearance is casual. Speech is Appropriate. Mood is euthymic. Affect is full. Thoughts are linear and logical. No evidence of psychosis. Reviewed daily check in sheet and no reports of suicidal ideations or intent. Client Response/Progress/Benefit: [] Pt was an active participant in group discussion. Attentive. Provided appropriate feedback. Emotion for today is happy. Shared with the group that today is her last day in [facility]. She is proud of herself for completing the program. Normal anxiety related to starting an new job next week. She discussed the job and how this can benefit her mental health. She has some concerns if she will be able to complete the responsibilities however insight that having a routine, structure, and incoming money will benefit her mental health. She discussed the progress that she has made over the past two months with improve skills. Shared that the group on cognitive distortions was the most beneficial for her stating I never realized how these impact my thoughts. Increased insight and awareness. Progress noted. Benefited from group support, encouragement, and feedback. Will be discharged from [facility] today. Narrative Note: []
--- NOTE | 2021-09-17 10:16 | BH.SGPN.GN ---
Behaviors/Verbalizations/Mental Status: []Client alert and oriented, casually dressed and groomed. Eye contact good. Motor activity appropriate. Speech within normal limits. Affect congruent, mood anxious and euthymic. Thoughts linear, logical, no signs of hallucinations or delusions. Client Response/Progress/Benefit: []Client responded well to session AEB sharing and listening attentively to others. Client participated in group discussion defining boundaries and why having healthy boundaries is important. Client provided an example of the importance of healthy boundaries, stating ?boundaries can improve your mood because you aren?t around people who make you feel bad about yourself?. Client appeared to connect to psychoeducation on types of boundaries, including physical, emotional, and intellectual. Client listened attentively to and shared personal examples of different types of boundaries, stating that she has struggled with communicating her boundaries in the past out of fear of hurting or upsetting others. Client appeared to benefit from increased knowledge of the types of boundaries and increased self-awareness of personal boundaries. Will d/c from [facility] tx on this date and is encouraged to continue with individual outpatient counseling to maintain gains, continue to promote healthy coping, and prevent decompensation. Narrative Note: []
--- NOTE | 2021-09-17 14:18 | BH.MDN_ITS ---
Multi-Disciplinary Note - Note 30-min Individual Time Started:: 09:30 Date: 09/17/21 Purpose of session/treatment goals addressed:: Reviewed progress on treatment goals in IOP. Finalized aftercare plans and reviewed outcome measurement. Discussed areas of continued focus in outpatient tx following IOP d/c. Eye Contact:: Good Motor Activity:: Appropriate Appearance:: Casual Speech:: Appropriate Mood:: Euthymic, Anxious Affect:: Congruent Thoughts:: Linear, Logical, No evidence of hallucinations/delusions noted Staff Interventions:: thought challenging, motivational interviewing, discharge planning, strengths perspective, reviewed DSM-5 Client Response:: Reviewed progress in IOP and on treatment plan goals. Pt was able to identify improvements in healthy communication skills with supports. Specific communication improvements included increased willingness to honestly communicate triggers, stressors and mental health needs, improved willingness to ask for help, and improved ability to discuss her mental health with supports. Pt additionally identified significant improvements in overall boundary setting skills, noting increased willingness to establish and maintain healthy boundaries with herself as well as others. Pt and therapist reviewed skills she has been utilizing to better regulate her emotions and prevent turning to old unhealthy means of coping when feeling irritable or anxious. Pt shared that challenging her distorted thoughts, taking breaks, and practicing regular self- care and calming skills has been most beneficial for her. Pt noted improved anxiety levels, reduced depression, and feeling more confident in herself. Pt spent some time discussing current frustrations with her grandmother whom is struggling with her own mental health right now and has been more irritable. Pt able to identify several skills to manage her emotions and practice patience with her grandmother. Empathized that her grandmother may be struggling as it is close to the anniversary date of her grandfather?s . Pt and therapist reviewed DSM outcome measurement scores. According to DSM outcome measurement pt showed an overall symptom decrease of 5% since re-admission and 29% from point of review. This indicated pt ability to maintain stability following period of stabilization pt had received from inpatient stay prior to IOP admission. Discussed excitement about starting the [employer] work readiness program next week as well as transitioning to the [facility] Aftercare program. Pt has successfully maintained safety throughout IOP admission and denies any SI since admission, additionally reports significant reduction in auditory command hallucinations and feels capable of managing these on her own which is significant as well. Risks/Concerns:: Pt denies SI/HI plan or intents as of this date, 09/17/21 Progress Toward Goals/Plan:: Progress noted. Pt has met treatment plan goals as noted above. DSM outcome measurements show a 29% decrease in overall symptoms since review. DSM also shows a 33% reduction in scores on depression scale, 100% reduction on thoughts of harming self, and an 100% reduction on scores on the mary scales. Pt self-reports improved mood stability, improved management of symptoms of psychosis and reduced auditory hallucinations, improved communication with supports, and decrease in depression. Reports increased awareness and insight on healthy coping skills, though recommended continued focus on consistent implementation, as well as recommended additional tx focus on healthy boundary setting. Plan is to discharge as pt no longer meets criteria for IOP level of care. Will begin aftercare program next week, 09/24/21. Time Stopped:: 10:04
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
--- NOTE | 2021-09-17 14:48 | BH.IGGP_ITS ---
Aftercare Plan - Demographics Treatment End Date:: 09/17/21 Psychiatrist:: Meagan Keyes Psychiatrist Office #:: [phone] [facility] Therapist:: Susan Gleason Therapist Phone #:: [phone] - Plan Details Progress/Aftercare Plan Details:: You have made progress in taking the brave step to address your mental health needs rather than continuing to try and ignore them or keep them to yourself. This is not an easy thing to do and deserves a lot of credit. Continue to make time to prioritize your mental health, this is going to be guerrier to maintaining the progress you?ve made! Since beginning treatment, you have made strides in your overall ability to replace unhealthy ways of coping, like lashing out at others, bottling things up, or reacting on impulse, with healthier skills. You are now more actively challenging yourself to take a step back and walk away, as well as being honest about how you?re doing before things escalate to the point of crisis. I know this is hard, but it?s important that you continue to be HONEST and regularly check-in with your supports. You have made progress with trying to catch and challenge your negative and distorted thoughts, as well as replace them with more positive self-talk. You have started to really begin surrounding yourself with healthier supports which also helps to reduce the negative thoughts. Keep using those things to continue to improve the way you speak to yourself. You have come such a long way in beginning to set healthy boundaries with yourself and others by actually identifying what it is that you need and communicating those needs with others. I know this has been one of the most difficult things you have been working on since beginning IOP tx. Keep working on it and remember that you deserve to have people in your life who are willing to show up for you and love you unconditionally. I know it?s tempting to fall back on the old ways or coping or to try to numb your emotions when feeling overwhelmed. Remember, you have gone almost 2 months without being in the hospital and are in such a healthier state of mind now. You have come such a long way and deserve to continue to show up for yourself. You have made huge strides in self-care, just look at the walking, milo, and chavo painting you are more consistently implement in your life! Self-care is GUERRIER to continued progress. I know you know this, just don?t forget to practice it! Strategies for Success:: Opposite Action!!! ? do what will help you, even when your brain is saying ?This won?t work? or ?I can?t do it?, even when it feels uncomfortable, even when you are tempted to give up or fall back into unhealthy coping behaviors. Doing the hard, uncomfortable, or anxious thing is not always fun, but it is often the healthier option. Regularly check-in with yourself and ask yourself how you are really doing. Do you recognize any of your warning signs? Are you going to be faced with a potential trigger soon? If you notice you are struggling, use your calming skills and take breaks! Try engaging in a relaxing activity such as 5-senses, taking a walk, stepping away for a minute, painting, or deep breathing. Remember, you are in control of your responses to external stressors! Challenge negative thought patterns by trying to look at things from another perspective. Remember ?thoughts are thoughts, not facts?. Ask yourself ?How else can I think about this??, ?Do I have to give this thought value??, ?Is there evidence against this thought?, What would I say to someone else??, ?What would my supports say to me if I told them how I was feeling??. This goes for the voices as well! Don?t be afraid to shut them down and let them know YOU ARE IN CONTROL! Continue to COMMUNICATE, COMMUNICATE, COMMUNICATE! Your supports won?t know how to help if you don?t let them be a part of the conversation. This includes communicating with yourself, your supports (even the ones you don?t always see eye to eye with), your psychiatrist, and your new therapist! Your mental health needs are important and deserve to be addressed! BOUNDARIES, BOUNDARIES, BOUNDARIES! Only you can be the one to say ?NO? to keeping the toxic people in your life. Keep challenging yourself to engage in activities that YOU enjoy and make YOU feel refreshed. These should be healthy activities that make you feel refreshed and give you a sense of emotional release. Remember to keep up with your medications and stay away from temptations to fall back into self-medicating habits. Keep going to therapy! - Appointments Appointments/Referrals to Other Services:: Regular outpatient appointments with Ernie for individual counseling at [facility] every 1-2 weeks. Pt is linked with [facility], Joh[facility] Weston, for medication management, with next appt scheduled for 09/22/21. Scheduled to begin aftercare group here at [facility] starting on 09/24/21. Will begin the [facility] work readiness program on 09/21/21 as well and is encouraged to continue to attend groups at [facility] as well. - Medications Home Medications: Home Medications buspirone 15 mg PO 4X/DAY 07/22/21 mirtazapine [Remeron] 7.5 mg PO QHS 08/05/21 prazosin 2 mg PO QHS 08/05/21 amantadine HCl 100 mg capsule 200 mg PO DAILY cap 08/11/21 etonogestrel 68 mg subdermal implant 1 implant SUBDERMAL ONCE 08/11/21 lurasidone [Latuda] 60 mg PO DAILY 30 Days #30 tab 08/12/21 ergocalciferol (vitamin D2) [Vitamin D2] 1,250 mcg PO QWEEK #10 cap 09/02/21 lamotrigine [Lamictal] 100 mg PO DAILY 09/02/21
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
== END 2021-09-17 12:53 | disposition home or self-care (01) ==
LOC: BHIOP 07:58
PROVIDERS: PCP Internal Medicine; Referring Provider Psychiatry & Neurology Psychiatry; Visit Provider Psychiatry & Neurology Psychiatry
DX: F31.5 Bipolar disorder, current episode depressed, severe, with psychotic features (principal); F43.10 Post-traumatic stress disorder, unspecified
CPT/HCPCS: 99214; H2012; H2020; S9480; 90832; 90834

== ENCOUNTER → 2021-10-13 | Outpatient (CLI) | payer MEDICAID, SELFPAY ==
[2021-10-13 18:50] LABS: HIV - WCH Non-Reactive (Nonreactive); Hepatitis B Surface Antigen Non-Reactive (Nonreactive); Hepatitis C Antibody Non-Reactive (Nonreactive); Syphilis Antibodies Non-reactive
== END | disposition home or self-care (01) ==
PROVIDERS: PCP Internal Medicine; Visit Provider Obstetrics & Gynecology
DX: R30.0 Dysuria (principal); N76.0 Acute vaginitis; Z11.3 Encounter for screening for infections with a predominantly sexual mode of transmission
CPT/HCPCS: 36415; 86703; 86780; 86803; 87086; 87088; 87340

== ENCOUNTER 2021-10-20 17:21 | Emergency (ER) | payer MEDICAID, SELFPAY ==
[2021-10-20 17:22] VITALS: BP 126/94; PULSE 108; RESP 16; TEMP 36.6; O2SAT 98; BMI 54.8
[2021-10-20 17:24] VITALS: BP 126/94; PULSE 108; RESP 16; TEMP 36.6; O2SAT 98
--- NOTE | 2021-10-20 18:00 | EDS_ITS ---
HPI History of Present Illness Chief Complaint: Abscess Narrative Narrative: 26-year-old female past medical history of bipolar disorder, obesity, hypothyroidism, presents with boil at the top of her vagina. She states this is the third time that she has developed an abscess or boil in this area. She states that she usually lets them resolve on her own, but this 1 appeared on Tuesday, 3 days ago, and has been getting larger. She states the center as purple and very painful to touch. She had subjective fever but denies any nausea or vomiting. No other symptoms. She states is the first time that she has had to come to the emergency department for this boil to be evaluated. She states it is 3 times the size it was when it began. [facility] Medical History Anxiety Back problem Depression Essential (primary) hypertension Frequent headaches Hearing loss in right ear History of breast lump Hypothyroidism Morbidly obese Nicotine dependence Overactive bladder PTSD (post-traumatic stress disorder) Rapid palpitations RLQ abdominal mass Seasonal allergies Severe manic bipolar 1 disorder with psychotic behavior Suicidal behavior Thyroid disease Home Medications buspirone 15 mg tablet 15 mg PO 4X/DAY 07/22/21 [History Last Taken Unknown] mirtazapine 15 mg tablet (Remeron) 7.5 mg PO QHS 08/05/21 [History Last Taken Unknown] prazosin 2 mg capsule 2 mg PO QHS 08/05/21 [History Last Taken Unknown] amantadine HCl 100 mg capsule 200 mg PO DAILY 08/11/21 [History Last Taken Unknown] etonogestrel 68 mg subdermal implant (Nexplanon) 1 implant subdermal ONCE 08/11/21 [History Last Taken Unknown] lurasidone 60 mg tablet (Latuda) 60 mg PO DAILY 30 days #30 tabs 08/12/21 [Rx Last Taken Unknown] ergocalciferol (vitamin D2) 1,250 mcg (50,000 unit) capsule (Vitamin D2) 1,250 mcg PO QWEEK #10 caps 09/02/21 [Rx Last Taken Unknown] lamotrigine 100 mg tablet (Lamictal) 100 mg PO DAILY 09/02/21 [History Last Taken Unknown] sulfamethoxazole 800 mg-trimethoprim 160 mg tablet (Bactrim DS) 1 tab PO BID #20 tabs 10/20/21 [Rx Last Taken Unknown] Allergy/AdvReac Type Severity Reaction Status Date / Time trazodone Allergy Mild nightmares Verified 10/20/21 17:24 lithium AdvReac Severe lightheaded Verified 10/20/21 17:24 aripiprazole [From Abilify] AdvReac Mild nightmares Verified 10/20/21 17:24 Family History Other Alcoholism Anxiety and depression Arthritis Asthma Breast cancer COPD (chronic obstructive pulmonary disease) CVA (cerebral vascular accident) Diabetes Heart disease Hyperlipemia Hypertension Melanoma Myocardial infarction Seizures Social History Smoking Status: Current every day smoker tobacco type: cigarettes how long ago did patient quit smoking: hasn't smoked in 2 weeks alcohol intake: never substance use type: does not use caffeine: Yes (1 cup coffee) Type: coffee what type of physical activity do you participate in: none seatbelt use: always do you feel safe at home: Yes additional social history: Single-Works at [employer] Narrative Constitutional: No fever, no chills. HEENT: No sore throat. No neck pain. No loss of vision. No rhinorrhea. Cardiovascular: No chest pain. No palpitations. No pedal edema. Respiratory: No cough, no shortness of breath. Abdominal: No abdominal pain. No nausea. No vomiting. Genitourinary: No dysuria. No hematuria. Musculoskeletal: No myalgias. No arthralgias. Neurologic: No headaches. No dizziness. No lightheadedness. Skin: No rash. Positive boil in right groin. Painful to touch. Discolored in center. Psychiatric: No depression. No anxiety. EXAM Physical Exam Narrative Exam Narrative: Afebrile. Vital signs noted. HEENT: Normocephalic. Atraumatic. PERRL, EOMI. Neck soft and supple. No point tenderness or step off. Cardiovascular: Regular rate and rhythm. No murmurs, rubs, or gallops appreciated. Respiratory: No tachypnea. Lungs clear to auscultation bilaterally. Gastrointestinal: Abdomen soft, nontender, with normoactive bowel sounds. No rebound or guarding. Neurological: Awake. Alert. Nonfocal, nonlateralizing. Skin: No rash. Normal color. No pallor. Chaperoned examination reveals small reddened area with minimal eschar on right mons pubis. Mild induration with minimal fluctuance. Mild erythema. Tenderness to palpation. Musculoskeletal: No pedal edema. Full range of motion extremities. Const Vital Signs: 10/20/21 17:22 10/20/21 17:24 10/20/21 19:26 Temperature 97.8 F 97.8 F Temperature Source Temporal Temporal Pulse Rate 108 H 108 H 84 Respiratory Rate 16 16 16 Blood Pressure 126/94 H 126/94 H Blood Pressure Mean 104 104 Pulse Ox 98 98 99 Oxygen Delivery Method Room Air Room Air Room Air MDM MDM MDM Narrative Medical decision making narrative: Initially, patient was verbally consented for incision and drainage. She was given her first dose of Bactrim here in the emergency department. She was informed of the risk of continued infection, scarring, bleeding, and acknowledges an understanding. However, she changed her mind and did not want incision and drainage performed. She prefers to apply warm compresses, take [id number] analgesics, and would like to take antibiotics. She was told of the risk of worsening abscess. She will follow-up with her primary care physician. Return instructions to the emergency department were reviewed. Disposition is discharged home in stable condition. Discharge Plan Triage Chief Complaint: Abscess ED Provider: Noah Varela Dx/Rx/DC Orders Clinical Impression: Cellulitis of groin, right, Abscess Instructions: ED Abscess Antibiotic Treatment Only, ED Cellulitis Prescriptions: New sulfamethoxazole-trimethoprim [Bactrim DS] 800-160 mg tablet 1 tab PO BID Qty: 20 0RF No Action amantadine HCl 100 mg capsule 200 mg PO DAILY Label Comments: TAKE 1 CAPSULE BY MOUTH TWICE DAILY Nexplanon 68 mg implant 1 implant subdermal ONCE Rx Instructions: as a single dose buspirone 15 mg tablet 15 mg PO 4X/DAY mirtazapine [Remeron] 15 mg Tablet 7.5 mg PO QHS prazosin 2 mg Capsule 2 mg PO QHS Latuda 60 mg tablet 60 mg PO DAILY 30 Days Qty: 30 1RF Rx Instructions: must administer with food (at least 350 calories) ergocalciferol (vitamin D2) [Vitamin D2] 1,250 mcg (50,000 unit) capsule 1,250 mcg PO QWEEK Qty: 10 0RF lamotrigine [Lamictal] 100 mg Tablet 100 mg PO DAILY Primary Care Provider: Kye Covington Referrals: Kye Covington MD [Primary Care Provider] - 3-5 Days if not improving Activity Restrictions/Additional Instructions: Apply warm compresses to the affected area. Take Tylenol or ibuprofen as needed for pain. Take the entire course of antibiotics. Disposition Disposition: Home, Self Care
[2021-10-20] MEDS: Smz/Tmp Ds Tablet 1 TABLET PO (18:10)
[2021-10-20 19:26] VITALS: PULSE 84; RESP 16; O2SAT 99
[2021-10-20 19:57] VITALS: PULSE 67; RESP 16; O2SAT 99
== END 2021-10-20 19:58 | disposition home or self-care (01) ==
PROVIDERS: Emergency Provider Emergency Medicine; PCP Internal Medicine; Visit Provider Emergency Medicine
DX: L03.314 Cellulitis of groin (principal); F31.9 Bipolar disorder, unspecified; E66.01 Morbid (severe) obesity due to excess calories; L02.214 Cutaneous abscess of groin; I10 Essential (primary) hypertension; E03.9 Hypothyroidism, unspecified; F41.9 Anxiety disorder, unspecified; E66.9 Obesity, unspecified; F17.210 Nicotine dependence, cigarettes, uncomplicated
CPT/HCPCS: 10060; 99283

== ENCOUNTER → 2021-12-09 | Outpatient (CLI) | payer MEDICAID, SELFPAY ==
[2021-12-09 12:28] LABS: D-Dimer Quantitative (DVT/PE) 0.27 FEU/ug/m (0.27-0.49)
== END | disposition home or self-care (01) ==
LOC: LABSPEC 12:02
PROVIDERS: PCP Internal Medicine; Referring Provider Nurse Practitioner Family; Visit Provider Nurse Practitioner Family
DX: U07.1 COVID-19 (principal); R06.02 Shortness of breath
CPT/HCPCS: 85379

== ENCOUNTER → 2022-03-30 | Outpatient (CLI) | payer MEDICAID, SELFPAY | END | disposition home or self-care (01) | PROVIDERS: PCP Internal Medicine; Visit Provider Obstetrics & Gynecology | DX: R30.0 Dysuria (principal); N76.0 Acute vaginitis; Z11.3 Encounter for screening for infections with a predominantly sexual mode of transmission | CPT/HCPCS: 87086; 87088 ==

== ENCOUNTER 2022-10-12 18:04 | Emergency (ER) | payer MEDICAID, SELFPAY ==
[2022-10-12 18:05] VITALS: BP 165/116; PULSE 123; RESP 18; TEMP 35.3; O2SAT 100; BMI 60.0
--- NOTE | 2022-10-12 18:31 | ED.VIS.BACK ---
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 She also has some paresthesias. She has no weakness no bowel or bladder compromise no urinary retention symptoms. No saddle anesthesia. 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 Suicidal behavior Thyroid disease Home Medications buspirone 15 mg tablet 15 mg PO 4X/DAY 07/22/21 [History Last Taken Unknown] mirtazapine 15 mg tablet (Remeron) 7.5 mg PO QHS 08/05/21 [History Last Taken Unknown] prazosin 2 mg capsule 2 mg PO QHS 08/05/21 [History Last Taken Unknown] amantadine HCl 100 mg capsule 200 mg PO DAILY 08/11/21 [History Last Taken Unknown] etonogestrel 68 mg subdermal implant (Nexplanon) 1 implant subdermal ONCE 08/11/21 [History Last Taken Unknown] lurasidone 60 mg tablet (Latuda) 60 mg PO DAILY 30 days #30 tabs 08/12/21 [Rx Last Taken Unknown] lamotrigine 100 mg tablet (Lamictal) 100 mg PO DAILY 09/02/21 [History Last Taken Unknown] sulfamethoxazole 800 mg-trimethoprim 160 mg tablet (Bactrim DS) 1 tab PO BID #20 tabs 10/20/21 [Rx Last Taken Unknown] ergocalciferol (vitamin D2) 1,250 mcg (50,000 unit) capsule (Vitamin D2) 1,250 mcg PO QWEEK #10 caps 11/11/21 [Rx Last Taken Unknown] methylprednisolone 4 mg tablets in a dose pack (Medrol (Jair)) 4 mg PO DAILY #21 tabs 10/12/22 [Rx Last Taken Unknown] tizanidine 4 mg tablet 4 mg PO Q8H PRN muscle spasticity #14 tabs 10/12/22 [Rx Last Taken Unknown] Allergy/AdvReac Type Severity Reaction Status Date / Time trazodone Allergy Mild nightmares Verified 10/20/21 17:24 lithium AdvReac Severe lightheaded Verified 10/20/21 17:24 aripiprazole [From Abilify] AdvReac Mild nightmares Verified 10/20/21 17:24 Family History Other Alcoholism Anxiety and depression Arthritis Asthma Breast cancer COPD (chronic obstructive pulmonary disease) CVA (cerebral vascular accident) Diabetes Heart disease Hyperlipemia Hypertension Melanoma Myocardial infarction Seizures Social History Smoking Status: Current every day smoker tobacco type: cigarettes how long ago did patient quit smoking: hasn't smoked in 2 weeks alcohol intake: never substance use type: does not use caffeine: Yes (1 cup coffee) Type: coffee what type of physical activity do you participate in: none seatbelt use: always do you feel safe at home: Yes additional social history: Single-Works at [employer] Past medical history: Reviewed Medications: Reviewed Social history: Noncontributory Review of systems: All systems negative except as indicated General: No fever Neck: No neck pain Cardiovascular: No chest pain Respiratory: No shortness of breath or cough Gastrointestinal: No abdominal pain, nausea vomiting or diarrhea Genitourinary: No dysuria. No urinary retention or incontinence Musculoskeletal: Back pain as in HPI Skin: No rash Neurological: Radicular symptoms but no weakness EXAM Physical Exam Narrative Exam Narrative: Vitals reviewed General: Patient appears in some discomfort HEENT: Moist mucous membranes Neck: Nontender Cardiovascular normal heart rate Respiratory: No respiratory difficulty speaking in full sentences Abdomen: Soft and nontender, there is no suprapubic mass or pain Back: There is some tenderness over the lumbar region, pain is spinal and paraspinal both. Extremities: Moves all extremities without joint pain or signs of trauma Neurological: There is normal plantar flexion and dorsiflexion of both feet and great toes. Patellar and Achilles reflexes are normal. Normal strength and sensation. Positive straight leg test on the left Skin: No rash Psychiatric: Slightly anxious. Const Vital Signs: 10/12/22 18:05 Temperature 95.6 F L Temperature Source Temporal Pulse Rate 123 H Respiratory Rate 18 Blood Pressure 165/116 H Blood Pressure Mean 132 Pulse Ox 100 Oxygen Delivery Method Room Air MDM MDM MDM Narrative Medical decision making narrative: Patient has back pain without any red flags I am not worried about any cauda equina symptoms am not worried about infection like discitis, spinal epidural abscess or osteomyelitis of the spine, she does not have any risk factors she has no fevers and this just started yesterday. At this time an x-ray is not warranted. An MRI is not warranted. Because of the radicular symptoms and the fact that she is not a diabetic I will give steroids. Also give muscle relaxants for home. We talked about exercises for stretching. Otherwise patient will be discharged in stable condition I talked to her sister she also gave me history Discharge Plan Triage Chief Complaint: Back ED Provider: Mitchell George Dx/Rx/DC Orders Clinical Impression: Back pain, Sciatica Instructions: ED Sciatica Prescriptions: New methylprednisolone [Medrol (Jair)] 4 mg tablets,dose pack 4 mg PO DAILY Qty: 21 0RF tizanidine 4 mg tablet 4 mg PO Q8H PRN (Reason: muscle spasticity) Qty: 14 0RF No Action amantadine HCl 100 mg capsule 200 mg PO DAILY Label Comments: TAKE 1 CAPSULE BY MOUTH TWICE DAILY Nexplanon 68 mg implant 1 implant subdermal ONCE Rx Instructions: as a single dose buspirone 15 mg tablet 15 mg PO 4X/DAY mirtazapine [Remeron] 15 mg Tablet 7.5 mg PO QHS prazosin 2 mg Capsule 2 mg PO QHS Latuda 60 mg tablet 60 mg PO DAILY 30 Days Qty: 30 1RF Rx Instructions: must administer with food (at least 350 calories) lamotrigine [Lamictal] 100 mg Tablet 100 mg PO DAILY sulfamethoxazole-trimethoprim [Bactrim DS] 800-160 mg tablet 1 tab PO BID Qty: 20 0RF ergocalciferol (vitamin D2) [Vitamin D2] 1,250 mcg (50,000 unit) capsule 1,250 mcg PO QWEEK Qty: 10 0RF Primary Care Provider: Kye Covington Referrals: Kye Covington MD [Primary Care Provider] - 2 Days Disposition Disposition: Home, Self Care
[2022-10-12] MEDS: HYDROcodone Bitartrate/Apap 5/325 Tablet PO (18:45)
== END 2022-10-12 18:47 | disposition home or self-care (01) ==
PROVIDERS: Emergency Provider Emergency Medicine; PCP Internal Medicine; Visit Provider Emergency Medicine
DX: M54.30 Sciatica, unspecified side (principal); I10 Essential (primary) hypertension; E03.9 Hypothyroidism, unspecified; F17.210 Nicotine dependence, cigarettes, uncomplicated
CPT/HCPCS: 99283

== ENCOUNTER 2023-05-06 14:40 | Emergency (ER) | payer MEDICAID, SELFPAY ==
[2023-05-06] VITALS (8 sets, daily range): BP systolic 126; BP diastolic 107; PULSE 110; RESP 16–18; TEMP 36.2; O2SAT 97
--- NOTE | 2023-05-06 15:01 | CM.ED ---
Social Work SW received call from crisis. Pt sent by crisis after assessment at [facility]. Pt was pink-slipped by crisis and they are recommending hospitalization. Crisis will fax assessment to ED when completed and placement is recommended at this time unless physician determines otherwise. Gricelda Roman DETASSELING CREW SUPERVISOR, CONTENT STRATEGIST
--- NOTE | 2023-05-06 15:12 | EDS_ITS ---
HPI HPI - Psych History of Present Illness Chief Complaint: Suicidal Informant: patient Narrative Narrative: Patient presents with some increasing suicidal thoughts. Patient has a history of depression anxiety. She is on multiple meds for this. When she needs including reducing her Latuda. She states the last 2 weeks she has had some more thoughts of suicide but over the last week is really gotten more. It is hard to get rid of the thoughts. She thoughts of drowning herself in the tub this morning. She has not actually made any attempts. No attempted overdose. She has had these problems before. She has depression anxiety b ipolar as well as PTSD. 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 But she has not had alcohol for about 2-1/2 years and no methamphetamines for about 70 days. 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 Suicidal behavior Thyroid disease Home Medications mirtazapine 15 mg tablet (Remeron) 30 mg PO QHS 08/05/21 [History Last Taken Unknown] prazosin 2 mg capsule 2 mg PO QHS 08/05/21 [History Last Taken Unknown] etonogestrel 68 mg subdermal implant (Nexplanon) 1 implant subdermal ONCE 08/11/21 [History Last Taken Unknown] lurasidone 60 mg tablet (Latuda) 60 mg PO DAILY 30 days #30 tabs 08/12/21 [Rx Last Taken Unknown] benztropine 0.5 mg tablet 0.5 mg PO BID 05/06/23 [History Last Taken Unknown] gabapentin 100 mg capsule 100 mg PO TID 05/06/23 [History Last Taken Unknown] quetiapine 50 mg tablet 50 mg PO QHS 05/06/23 [History Last Taken Unknown] Allergy/AdvReac Type Severity Reaction Status Date / Time trazodone Allergy Mild nightmares Verified 05/06/23 14:41 lithium AdvReac Severe lightheaded Verified 05/06/23 14:41 aripiprazole [From [facility]] AdvReac Mild nightmares Verified 05/06/23 14:41 Family History Other Alcoholism Anxiety and depression Arthritis Asthma Breast cancer COPD (chronic obstructive pulmonary disease) CVA (cerebral vascular accident) Diabetes Heart disease Hyperlipemia Hypertension Melanoma Myocardial infarction Seizures Social History Smoking Status: Current every day smoker tobacco type: cigarettes how long ago did patient quit smoking: hasn't smoked in 2 weeks alcohol intake: never substance use type: does not use caffeine: Yes (1 cup coffee) Type: coffee what type of physical activity do you participate in: none seatbelt use: always do you feel safe at home: Yes additional social history: Single-Works at [employer] ED Constitutional Constitutional ED: Reports other Details: Patient states she had the flu about 3 weeks ago but it is totally gone. ; Denies chills or fever(s) ENT ENT ED: Denies ear pain, rhinorrhea or sore throat Cardiovascular Cardiovascular: Denies chest pain Respiratory/Chest Respiratory/Chest: Denies cough or dyspnea Gastrointestinal Gastrointestinal: Denies nausea or vomiting Musculoskeletal Musculoskeletal: Denies myalgias Integumentary Denies rash Neurologic Neurologic: Denies headache(s) Psychiatric Psychiatric: Reports anxiety, depression and suicidal ideation Hematologic/Lymphatic Hematologic/Lymphatic: Denies easy bleeding or easy bruising Allergic/Immunologic Allergic/Immunologic ED: Denies urticaria EXAM Physical Exam Narrative Exam Narrative: CONSTITUTIONAL: Patient is nontoxic in appearance. The patient looks comfortable. Work of breathing looks normal. HEENT: No notable trauma. Mucous membranes moist. No congestion. No erythema of the throat. EYES: No conjunctival injection. No proptosis. NECK:No JVD. No stridor. CARDIOVASCULAR: Regular rate. Regular rhythm. No notable murmur. RESPIRATORY: No respiratory distress. Breathing is unlabored. No wheezes. No coughing while I am in the room GASTROINTESTINAL: Not distended. Bowel sounds are normal. No tenderness. GENITOURINARY: No CVA tenderness. MUSCULOSKELETAL: Atraumatic. No peripheral edema. NEUROLOGICAL: Patient is alert and appropriate. No focal deficit noted. SKIN: No noted rashes. No diaphoresis. PSYCHIATRIC: Patient is calm. Mood is appropriate. She actually makes good eye contact. She is a very clear informant. She seems to be very honest and open about the events and her thoughts. Const Vital Signs: 05/06/23 14:42 05/06/23 16:00 05/06/23 18:00 Temperature 97.1 F L Temperature Source Temporal Pulse Rate 110 H Respiratory Rate 18 16 18 Blood Pressure 126/107 H Blood Pressure Mean 113 Pulse Ox 97 Oxygen Delivery Method Room Air 05/06/23 19:00 05/06/23 20:00 05/06/23 21:00 Temperature Temperature Source Pulse Rate Respiratory Rate 18 18 18 Blood Pressure Blood Pressure Mean Pulse Ox Oxygen Delivery Method MDM MDM MDM Narrative Medical decision making narrative: Patient CBC is normal other than mild elevation of white count which is nonspecific. Patient's electrolytes are normal other than nonspecific mild elevation in glucose at 114. Patient's serum is negative. Patient's serum alcohol is negative. Patient's urine toxicology is negative. Patient is medically cleared for psychiatric evaluation and admission if needed. Patient is given a NicoDerm patch as she has half pack a day smoker. Her when the facilities they wanted EKG on this patient. EKG shows no acute process. Patient has been accepted at [facility]. Lab Data Attestation: I reviewed the patient's lab results. Labs: Laboratory Results - last 24 hr 05/06/23 05/06/23 14:51 14:59 WBC 13.3 H RBC 4.90 Hgb 13.2 Hct 41.1 MCV 83.9 MCH 26.9 L MCHC 32.1 RDW Std Deviation 43.3 RDW Coeff of Edmund 14.2 Plt Count 446 MPV 8.5 Immature Gran % (Auto) 0.800 Neut % (Auto) 68.5 Lymph % (Auto) 22.8 [place] % (Auto) 5.3 Eos % (Auto) 2.1 Baso % (Auto) 0.5 Absolute Neuts (auto) 9.1 H Absolute Lymphs (auto) 3.02 Nucleated RBC % 0 Sodium 138 Potassium 3.8 Chloride 107 Carbon Dioxide 25.0 Anion Gap 6 BUN 14 Creatinine 0.72 Est GFR (MDRD) Af Amer 126 Est GFR (MDRD) Non-Af 104 BUN/Creatinine Ratio 19.5 Glucose 114 H Calcium 9.2 Serum , Qual NEGATIVE Urine Opiates Screen NEGATIVE Urine Methadone Screen NEGATIVE Ur Barbiturates Screen NEGATIVE Ur Phencyclidine Scrn NEGATIVE Ur Amphetamines Screen NEGATIVE MDMA (Ecstasy) Screen NEGATIVE U Benzodiazepines Scrn NEGATIVE Urine Cocaine Screen NEGATIVE U Cannabinoids Screen NEGATIVE Ur Drug Screen Comment Ethyl Alcohol < 3.0 EKG Initial EKG: Comments: My independent interpretation of the patient's EKG is a sinus rhythm overall rate of 96. No ventricular ectopy. No acute ST elevation or depression. No preexcitation. DC interval, QRS duration and QTc are normal. Discharge Plan Triage Chief Complaint: Suicidal ED Provider: John Woods Dx/Rx/DC Orders Clinical Impression: Suicidal ideation, Tobacco abuse Prescriptions: No Action Nexplanon 68 mg implant 1 implant subdermal ONCE Rx Instructions: as a single dose mirtazapine [Remeron] 15 mg Tablet 30 mg PO QHS prazosin 2 mg Capsule 2 mg PO QHS lurasidone [Latuda] 60 mg tablet 60 mg PO DAILY 30 Days Qty: 30 1RF Rx Instructions: must administer with food (at least 350 calories) quetiapine 50 mg tablet 50 mg PO QHS benztropine 0.5 mg tablet 0.5 mg PO BID gabapentin 100 mg capsule 100 mg PO TID Primary Care Provider: Care Physician,No Primary Referrals: Kye Covington MD [Med Staff - Active Staff] - Disposition Disposition: Psychiatric Hospital or Unit Discharge Location: [facility]
[2023-05-06 15:19] LABS: Absolute Lymphocyte Count 3.02 X10^3/uL (0.83-4.51); Absolute Neutrophil Count 9.1 X10^3/uL (2.0-7.7); Basophil# 0.07 X10^3/uL; Basophil% 0.5 % (0-1); Eosinophil# 0.28 X10^3/uL; Eosinophils% 2.1 % (0-5); Hematocrit 41.1 % (37-47); Hemoglobin 13.2 g/dL (12.0-15.0); Lymphocyte # 3.02 X10^3/ul (0.83-4.51); Lymphocyte % 22.8 % (19-41); Mean Corp Hgb Conc 32.1 g/dL (32-36); Mean Corpuscular Hgb 26.9 pg (27.0-32.0); Mean Corpuscular Volume 83.9 fL (81-99); Mean Platelet Vol. 8.5 fl (6.2-12.0); Monocyte% 5.3 % (0-10); NRBC Flagged by Analyzer 0 % (0-5); Neutrophil # 9.09 X10^3/uL (2.7-7.7); Neutrophil % 68.5 % (47-70); Platelet Count 446 K/mm3 (150-450); RBC Distribution Width CV 14.2 % (11.6-14.6); RBC Distribution Width SD 43.3 fl (35.1-43.9); White Blood Count 13.3 K/mm3 (4.4-11.0)
[2023-05-06 15:51] LABS: Anion Gap 6 (5-15); BUN 14 mg/dL (7-18); BUN/Creat Ratio 19.5 RATIO (10-20); Calcium,Total 9.2 mg/dL (8.5-10.1); Chloride 107 mmol/L (98-107); Creatinine, Serum 0.72 mg/dL (0.55-1.02); EST Glomerular Filtration Rate 104 mL/min (>60); Est Glom Filt Rate - Afr Amer 126 mL/min (>60); Glucose 114 mg/dL (74-106); Potassium 3.8 mmol/L (3.5-5.1); Sodium Level 138 mmol/L (136-145)
[2023-05-06 15:53] LABS: Alcohol, Blood (Medical)-Serum < 3.0 mg/dL
[2023-05-06 16:07] LABS: Internal QC Validated? YES +Cl - CLEAR BKGD; Pregnancy, Serum, hCG Quali. NEGATIVE Negative; Record Kit Lot#, Serum Preg. 667200
[2023-05-06 16:09] LABS: Amphetamine Urine VISTA NEGATIVE (<1000 ng/mL); Barbiturate Urine VISTA NEGATIVE (< 200 ng/mL); Benzodiazepine Urine VISTA NEGATIVE (< 200 ng/mL); Cocaine Urine VISTA NEGATIVE (< 300 ng/mL); Ecstacy Urine VISTA NEGATIVE (< 500 ng/mL); Methadone Urine VISTA NEGATIVE (< 300 ng/mL); PCP Urine VISTA NEGATIVE (< 25 ng/mL); THC Urine VISTA NEGATIVE (< 50 ng/mL); Vista UDS pH Range 6
--- OUTSIDE RECORDS SUMMARY | 2023-05-06 16:24 | XMS RPT_ITS | CCD ---
Author Name Unknown Address [address] [place] [address] Organization [facility] Care Team Providers Care Supervisor Lens Generating Name Role Phone KYE BILLS MD Primary Care Physician [phone] Kye Bills MD Primary Care Provider [phone] Allergies Allergy Classification Reported Allergen(s) Allergy Type Date of Onset Reaction(s) Facility (4 sources) ARIPiprazole lauroxil; Translations: [aripiprazole] Drug Allergy Unknown [facility] (4 sources) [place]; Translations: [lithium] Drug Allergy 7 Intolerance [facility] (2 sources) ARIPiprazole Drug Allergy 9 Mental Status Change, Unknown [facility] (2 sources) traZODone Drug Allergy 2 GI Upset [facility] Medications Current Medications Medication Drug Class(es) Dates Sig (Normalized) Sig (Original) amitriptyline hydrochloride 25 mg oral tablet (2 sources) Tricyclic Antidepressant Start: 06-29-2021 take 1 tablet by mouth once daily at bedtime amitriptyline 25 mg oral tablet take 1 tablet by mouth once daily at bedtime Start Date: 06/29/21 Status: Ordered sertraline 50 mg oral tablet (2 sources) Serotonin Reuptake Inhibitor Start: 06-29-2021 take 0.5 tablet by mouth at bedtime, then take 1 tablet by mouth once daily sertraline 50 mg oral tablet take 1/2 tablet by mouth at bedtime for 6 days then INCREASE to 1 tablet daily Start Date: 06/29/21 Status: Ordered Completed/Discontinued Medications Medication Drug Class(es) Dates Sig (Normalized) Sig (Original) [id number] 200 actuat albuterol 0.09 mg/actuat metered dose inhaler (1 source) beta2-Adrenergic Agonist Start: 12-09-2021 take 2-4 puff(s) by inhalation every two hours as needed for wheezing albuterol HFA (PROVENTIL HFA, VENTOLIN HFA) 90 mcg/actuation inhaler Inhale 2-4 Puffs as instructed every 2 hours as needed for wheezing/shortnes s of breath. 1 Inhaler 0 12/09/2021 Active Problems Problem Classification Problem Date Documented Date Episodic/Chronic Anxiety disorders (2 sources) Posttraumatic stress disorder; Translations: [Post-traumatic stress disorder, unspecified] Onset: 11-30-2017 11-30-2017 Chronic Mood disorders (2 sources) Major depressive disorder; Translations: [Major depressive disorder, single episode, unspecified] Onset: 11-30-2017 11-30-2017 Chronic Other lower respiratory disease (1 source) Dyspnea; Translations: [Shortness of breath] Episodic Other nutritional; endocrine; and metabolic disorders (2 sources) Body mass index 40+ - severely obese; Translations: [Morbid (severe) obesity due to excess calories] Onset: 09-20-2017 09-20-2017 Chronic Schizophrenia and other psychotic disorders (2 sources) Non-organic psychosis; 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] Onset: 11-30-2017 11-30-2017 Chronic Sprains and strains (1 source) Sprain of ankle; Translations: [Sprain of unspecified ligament of unspecified ankle, initial encounter] Onset: 07-19-2021 Episodic Viral infection (1 source) Disease caused by 2019-nCoV; Translations: [COVID-19] Episodic Results Test Name Value Interpretation Reference Range Facil ity Vital Signs Date Time Vital Sign Value Performing Clinician Facility 12-09-2021 10:18-0400 Body temperature 97.81 [degF] Priti Alvarado APRN.CNP Work Phone: [facility] 12-09-2021 10:18-0400 Body weight 154.77 kg Priti Alvarado APRN.CNP Work Phone: [facility] 12-09-2021 10:18-0400 Diastolic blood pressure 94 mm[Hg] Priti Alvarado ARTIST AGENT.LOLLYPOP MACHINE OPERATOR Work Phone: [facility] 12-09-2021 10:18-0400 Heart rate 100 /min Priti Alvarado ARTIST AGENT.LOLLYPOP MACHINE OPERATOR Work Phone: [facility] 12-09-2021 10:18-0400 Respiratory rate 21 /min Priti Alvarado ARTIST AGENT.LOLLYPOP MACHINE OPERATOR Work Phone: [facility] 12-09-2021 10:18-0400 SaO2% (BldA) [Mass fraction] 98 % Priti Alvarado ARTIST AGENT.LOLLYPOP MACHINE OPERATOR Work Phone: [facility] 12-09-2021 10:18-0400 Systolic blood pressure 112 mm[Hg] Priti Alvarado ARTIST AGENT.LOLLYPOP MACHINE OPERATOR Work Phone: [facility] 07-19-2021 10:03-0400 Body temperature 98.42 [degF] DR GABINO BORJA MD [facility] 07-19-2021 10:03-0400 Diastolic blood pressure 87 mm[Hg] DR GABINO BORJA MD [facility] 07-19-2021 10:03-0400 Heart rate 93 /min DR GABINO BORJA MD [facility] 07-19-2021 10:03-0400 Respiratory rate 18 /min DR GABINO BORJA MD [facility] 07-19-2021 10:03-0400 Systolic blood pressure 133 mm[Hg] DR GABINO BORJA MD [facility] Encounters Encounter Date Encounter Type Care Provider Facility Start: 12-09-2021 End: 12-09-2021 Patient encounter procedure Priti Alvarado ARTIST AGENT.LOLLYPOP MACHINE OPERATOR Work Phone: [facility] Procedures Date Procedure Procedure Detail Performing Clinician Start: 03-23-2017 Adult depression screening assessment Diana Louis PA-C Work Phone: None (qualifier value) DR MIGUEL BORJA MD Plan of Treatment Date Care Activity Detail Author Start: 12-31-2021 Influenza vaccination INFLUENZA (#1) [facility] Start: 03-23-2018 Adult depression scr eening assessment DEPRESSION SCREENING [facility] Start: 2018 PAP TESTING PAP TESTING [facility] Start: 2016 Urine microalbumin profile DTAP,TDAP ,TD (1 - Tdap) [facility] Start: 2011 PEDS TO ADULT TRANSI TION ANNUAL ASSESSMENT PEDS TO ADULT TRANSITION ANNUAL ASSESSMENT [facility] Start: 2009 PEDS TO ADULT TRANSI TION INITIAL DISCUSSION PEDS TO ADULT TRANSITION INITIAL DISCUSSION [facility] Start: 2008 HPV VACCINE (1 - 2-d ose series) HPV VACCINE (1 - 2-dose series) [facility] Start: 2007 MENINGOCOCCAL B: Con grants analyst based on risk (1 of 2 - Risk Bexsero 2-dose series) MENINGOCOCCAL B: Consider based on risk (1 of 2 - Risk Bexsero 2-dose series) [facility] Start: 2003 PNEUMOCOCCAL (1 - PCV) PNEUMOCOCCAL (1 - PCV) [facility] Start: 1997 COVID-19 VACCINE (#1) COVID-19 VACCI NE (#1) [facility] Start: 1997 HEPATITIS B (1 of 3 - 3-dose series) HEPATITIS B (1 of 3 - 3-dose series) [facility] Immunizations Immunization Date Immunization Notes Care Provider Anil barajas 03-23-2017 influenza virus vacc ine, unspecified formulation DR GABINO BORJA MD [facility] 03-23-2017 influenza, injectabl e, quadrivalent, contains preservative Diana Louis PA-C Work Phone: [facility] Work Phone: 12-19-2008 meningococcal polysaccharide (groups A, C, Y and W-135) diphtheria toxoid conjugate vaccine (MCV4P) DR GABINO BORJA MD [facility] 07-22-2008 measles/mumps/rubell a virus vaccine DR GABINO BORJA MD [facility] 07-22-[address], inactivated [address] GABINO BORJA MD [facility] 07-22-2008 tetanus toxoid, redu micheline diphtheria toxoid, and acellular pertussis vaccine, adsorbed DR GABINO BORJA MD [facility] 12-08-1999 haemophilus influenz ae type b conjugate and Hepatitis B vaccine DR GABINO BORJA MD [facility] 05-27-1998 haemophilus influenz ae type b vaccine, HbOC conjugate DR GABINO BORJA MD [facility] 05-27-1998 hepatitis B pediatri c vaccine DR GABINO BORJA MD [facility] 05-27-1998 measles/mumps/rubell a virus vaccine DR GABINO BORJA MD [facility] 1997 haemophilus influenz ae type b vaccine, HbOC conjugate DR GABINO BORJA MD [facility] 1997 hepatitis B pediatri c vaccine DR GABINO BORJA MD [facility] 1997 haemophilus influenz ae type b vaccine, HbOC conjugate DR GABINO BORJA MD [facility] 1997 hepatitis B pediatri c vaccine DR GABINO BORJA MD [facility] 1997 hepatitis B pediatri c vaccine DR GABINO BORJA MD [facility] Payers Date Payer Category Payer Medicaid [employer] [facility] [id number] 2015-Present [phone] [address] [place] [address] Medicaid [id number] Social History Date Type Detail Facility Start: 06-03-2021 Heavy tobacco smoker (finding) [facility] Sex Assigned At [facility] Start: 11-06-2017 End: 12-09-2021 Tobacco smoking status NHIS Smokes tobacco daily [facility] History of tobacco use Cigarette Smoker [facility] Start: 11-06-2017 End: 12-09-2021 Tobacco use and exposure Smokeless tobacco non-user [facility] Start: 12-04-2021 End: 12-09-2021 Alcohol intake Current drinker of alcohol (finding) [facility] Start: 03-23-2017 History SDOH Alcohol Comment occasional [facility] Start: 03-23-2017 End: 12-09-2021 Tobacco Comment age 13, 1/2 PPD [facility] Start: 1997 Sex Assigned At Not on file C [facility] Start: 11-24-2021 End: 12-04-2021 Exposure to SARS-CoV-2 (event) Not sure [facility] Work Phone: Start: 11-29-2021 End: 12-09-2021 Exposure to SARS-CoV-2 (event) Yes [facility] Work Phone: Clinical Notes 12-31-2020 to 12-09-2021 Patient InstructionsPriti Alvarado APRN.LOLLYPOP MACHINE OPERATOR - 12/09/2021 10:34 AM EDTTelephone Encounter - Halley Bowden - 12/05/2021 9:52 AM EDTTelephone Encounter - Diana Louis PA-C - 12/05/2021 9:04 AM EDT Note Date & Type Note Facility 12-09-2021 Note HNO ID: [id number] Author: RT Germain(R) Service: Radiology Author Type: Technologist Type: Progress Notes Filed: 12/09/2021 10:55 AM Note Text: Radiology Service Progress Note PATIENT NAME: Stephenie Ceja DATE OF SERVICE: December 09, 2021 TIME: 10:48 AM PATIENT IDENTITY VERIFICATION COMPLETED USING TWO (2) IDENTIFIERS: Name and Date of confirmed by patient verbally. FALL SCREENING: Has the patient had 2 falls in the last year or 1 fall with injury or currently using an Ambulatory Assistive Device (Walker, Cane, Wheelchair, Crutches, etc.)? No PATIENT GENDER DATA: Female. status: : No status: NO. PATIENT RELEVANT IMPLANT DATA REVIEWED: Yes RADIOLOGY DEPARTMENT: General X-ray: Exam(s) Completed: Chest X-Ray PERIPHERAL IV DATA: Not applicable SIGNED BY: RT Germain(R) December 09, 2021 10:48 AM [facility] 12-09-2021 Note HNO ID: [id number] Author: Priti Alvarado APRN.LOLLYPOP MACHINE OPERATOR Service: ? Author Type: Nurse Practitioner Type: Progress Notes Filed: 12/09/2021 3:08 PM Note Text: This note was created using NoteWriter. Subjective Stephenie Ceja is a 26 year old female. 26 year old female with PMH of COVID (12/04/2021) presents with illness. Acute onset yesterday +SOB Endorses she feels as though she is breathing through a straw. Worsened with activity. Denies CP,N,V,D, leg pain, rash/lesions Denies hemoptysis. States she's missed 4 days of work due to illness. I move a lot of boxes around at work and I'm afraid to go back since I'm SOB +tobacco usage +oral contraceptives. The history is provided by the patient. No after school caregiver was used. Shortness of Breath This is a new problem. The current episode started yesterday. The problem occurs intermittently. The problem has been gradually worsening. Duration: with excursion. Associated symptoms include sputum production. Pertinent negatives include no abdominal pain, chest pain, claudication, coryza, ear pain, fever, headaches, hemoptysis, leg pain, leg swelling, neck pain, orthopnea, PND, rash, rhinorrhea, sore throat, swollen glands, syncope, vomiting or wheezing. The symptoms are aggravated by smoke and exercise. Associated symptoms comments: Brown and green sputum. Risk factors include smoking and oral contraceptive (COVID). She has tried nothing for the symptoms. The treatment provided no relief. There is no history of allergies, aspirin allergies, asthma, bronchiolitis, CAD, chronic lung disease, COPD, DVT, a heart failure, PE, pneumonia or a recent surgery. PAST MEDICAL HISTORY Diagnosis Date Borderline personality disorder (HCC) diagnosed age 18, psychiatrist Dav Chronic low back pain with left-sided sciatica PAST SURGICAL HISTORY Procedure Laterality Date NONE ALLERGIES [place], Trazodone, and Aripiprazole MEDICATIONS amantadine HCl (SYMMETREL) 100 mg capsule lisinopril (ZESTRIL, PRINIVIL) 10 mg tablet Take by mouth. LATUDA 40 mg tablet TAKE 1 TABLET BY MOUTH ONCE DAILY WITH AT LEAST 350 CALORIES OF FOOD LATUDA 60 mg tab tablet TAKE 1 TABLET BY MOUTH ONCE DAILY WITH FOOD (AT LEAST 350 CALORIES) prazosin (MINIPRESS) 2 mg cap Mirtazapine (REMERON) 7.5 mg tablet Take 7.5 mg by mouth daily at bedtime. etonogestrel (NEXPLANON) 68 mg impl subdermal implant 68 mg by SUBDERMAL route. Yhpmagwiptvbcsg-Ezifbqcmn-DA (BROMFED DM) 2-30-10 mg/5 mL syrup Take 10 mL by mouth four times daily as needed. busPIRone (BUSPAR) 15 mg tablet Take 15 mg by mouth three times daily as needed. FAMILY HISTORY Problem Relation Age of Onset Psychiatry Mother bipolar, depression other (brain aneurysm) Mother Hypertension Maternal Grandmother Cancer Maternal Grandfather lung, smoker Coronary Artery Disease Maternal Grandfather Psychiatry Maternal Grandfather depression, anxiety Social History Tobacco Use Smoking status: Every Day Types: Cigarettes Smokeless tobacco: Never Tobacco comments: age 13, 1/2 PPD Substance Use Topics Alcohol use: Yes Comment: occasional Drug use: Yes Types: Marijuana, Cocaine, Crack Cocaine, Amphetamines, Narcotics, Heroin, Crystal Meth Comment: in past 17-19 years old Review of Systems Constitutional: Positive for fatigue. Negative for activity change, appetite change, chills and fever. HENT: Negative for congestion, dental problem, ear discharge, ear pain, facial swelling, hearing loss, rhinorrhea, sinus pressure, sinus pain, sore throat and trouble swallowing. Eyes: Negative for pain, discharge, redness and itching. Respiratory: Positive for cough, sputum production and shortness of breath. Negative for apnea, hemoptysis, chest tightness and wheezing. Intermittent cough with brown/green sputum. SOB with activity Cardiovascular: Negative for chest pain, orthopnea, claudication, leg swelling, syncope and PND. Gastrointestinal: Negative for abdominal pain, constipation, diarrhea, nausea and vomiting. Endocrine: Negative for cold intolerance and heat intolerance. Genitourinary: Negative for difficulty urinating. Musculoskeletal: Negative for back pain and neck pain. Skin: Negative for color change, pallor, rash and wound. Allergic/Immunologic: Positive for immunocompromised state. Negative for environmental allergies and food allergies. Recent COVID Neurological: Negative for dizziness, light-headedness and headaches. Psychiatric/Behavioral: Negative for agitation and behavioral problems. Objective BP 112/94 Pulse 100 Temp 36.6 ?C (97.8 ?F) Resp 21 Wt (!) 154.8 kg (341 lb 3.2 oz) LMP 03/09/2017 (Approximate) SpO2 98% BMI 53.68 kg/m? Physical Exam Vitals and nursing note reviewed. Constitutional: General: She is not in acute distress. Appearance: Normal appearance. She is obese. She is not ill-appearing, toxic-appearing or diaphoret (more content not included)... [facility] 12-09-2021 Instructions Priti Alvarado APRN.CNP - 12/09/2021 10:59 AM EDT Please have your blood work obtained after chest xray. We will call with results. If your D -dimer is positive, we will need you to report to ED for a CT scan. Please pickle pumper the inhaler and prednisone and start after testing is completed. documented in this encounter [facility] 12-09-2021 History of Present illness Narrative This note was created using M2 Connectionsriter. Subjective Stephenie Ceja is a 26 year old female. 26 year old female with PMH of COVID (12/04/2021) presents with illness. Acute onset yesterday +SOB Endorses she feels as though she is breathing through a straw. Worsened with activity. Denies CP,N,V,D, leg pain, rash/lesions Denies hemoptysis. States she's missed 4 days of work due to illness. I move a lot of boxes around at work and I'm afraid to go back since I'm SOB +tobacco usage +oral contraceptives. The history is provided by the patient. No after school caregiver was used. Shortness of Breath This is a new problem. The current episode started yesterday. The problem occurs intermittently. The problem has been gradually worsening. Duration: with excursion. Associated symptoms include sputum production. Pertinent negatives include no abdominal pain, chest pain, claudication, coryza, ear pain, fever, headaches, hemoptysis, leg pain, leg swelling, neck pain, orthopnea, PND, rash, rhinorrhea, sore throat, swollen glands, syncope, vomiting or wheezing. The symptoms are aggravated by smoke and exercise. Associated symptoms comments: Brown and green sputum. Risk factors include smoking and oral contraceptive (COVID). She has tried nothing for the symptoms. The treatment provided no relief. There is no history of allergies, aspirin allergies, asthma, bronchiolitis, CAD, chronic lung disease, COPD, DVT, a heart failure, PE, pneumonia or a recent surgery. PAST MEDICAL HISTORY Diagnosis Date Borderline personality disorder (HCC) diagnosed age 18, psychiatrist Dav Chronic low back pain with left-sided sciatica PAST SURGICAL HISTORY Procedure Laterality Date NONE ALLERGIES [place], Trazodone, and Aripiprazole MEDICATIONS amantadine HCl (SYMMETREL) 100 mg capsule lisinopril (ZESTRIL, PRINIVIL) 10 mg tablet Take by mouth. LATUDA 40 mg tablet TAKE 1 TABLET BY MOUTH ONCE DAILY WITH AT LEAST 350 CALORIES OF FOOD LATUDA 60 mg tab tablet TAKE 1 TABLET BY MOUTH ONCE DAILY WITH FOOD (AT LEAST 350 CALORIES) prazosin (MINIPRESS) 2 mg cap Mirtazapine (REMERON) 7.5 mg tablet Take 7.5 mg by mouth daily at bedtime. etonogestrel (NEXPLANON) 68 mg impl subdermal implant 68 mg by SUBDERMAL route. Avkaxqcrqxlfkrj-Ngvsvmlce-ST (BROMFED DM) 2-30-10 mg/5 mL syrup Take 10 mL by mouth four times daily as needed. busPIRone (BUSPAR) 15 mg tablet Take 15 mg by mouth three times daily as needed. FAMILY HISTORY Problem Relation Age of Onset Psychiatry Mother bipolar, depression other (brain aneurysm) Mother Hypertension Maternal Grandmother Cancer Maternal Grandfather lung, smoker Coronary Artery Disease Maternal Grandfather Psychiatry Maternal Grandfather depression, anxiety Social History Tobacco Use Smoking status: Every Day Types: Cigarettes Smokeless tobacco: Never Tobacco comments: age 13, 1/2 PPD Substance Use Topics Alcohol use: Yes Comment: occasional Drug use: Yes Types: Marijuana, Cocaine, Crack Cocaine, Amphetamines, Narcotics, Heroin, Crystal Meth Comment: in past 17-19 years old Review of Systems Constitutional: Positive for fatigue. Negative for activity change, appetite change, chills and fever. HENT: Negative for congestion, dental problem, ear discharge, ear pain, facial swelling, hearing loss, rhinorrhea, sinus pressure, sinus pain, sore throat and trouble swallowing. Eyes: Negative for pain, discharge, redness and itching. Respiratory: Positive for cough, sputum production and shortness of breath. Negative for apnea, hemoptysis, chest tightness and wheezing. Intermittent cough with brown/green sputum. SOB with activity Cardiovascular: Negative for chest pain, orthopnea, claudication, leg swelling, syncope and PND. Gastrointestinal: Negative for abdominal pain, constipation, diarrhea, nausea and vomiting. Endocrine: Negative for cold intolerance and heat intolerance. Genitourinary: Negative for difficulty urinating. Musculoskeletal: Negative for back pain and neck pain. Skin: Negative for color change, pallor, rash and wound. Allergic/Immunologic: Positive for immunocompromised state. Negative for environmental allergies and food allergies. Recent COVID Neurological: Negative for dizziness, light-headedness and headaches. Psychiatric/Behavioral: Negative for agitation and behavioral problems. Objective BP 112/94 Pulse 100 Temp 36.6 C (97.8 F) Resp 21 Wt (!) 154.8 kg (341 lb 3.2 oz) LMP 03/09/2017 (Approximate) SpO2 98% BMI 53.68 kg/m Physical Exam Vitals and nursing note reviewed. Constitutional: General: She is not in acute distress. Appearance: Normal appearance. She is obese. She is not ill-appearing, toxic-appearing or diaphoretic. HENT: Head: Normocephalic. Right Ear: Tympanic membrane, ear canal and external ear normal. There is no impacted cerumen. Left Ear: Tympanic membrane, ear canal and external ear normal. There is no impacted cerumen. Nose: Nose normal. No congestion or rhinorrhea. Mouth/Throat: Mouth: Mucous membranes are moist. Pharynx: No oropharyngeal exudate or posterior oropharyngeal erythema. Eyes: General: No scleral icterus. Right eye: No discharge. Left eye: No discharge. Extraocular Movements: Extraocular movements intact. Conjunctiva/sclera: Conjunctivae normal. Pupils: Pupils are equal, round, and reactive to light. Neck: Vascular: No carotid bruit. Cardiovascular: Rate and Rhythm: Normal rate and regular rhythm. Pulses: Normal pulses. Heart sounds: Normal heart sounds. No murmur heard. Pulmonary: Effort: Pulmonary effort is normal. No respiratory distress. Breath sounds: Normal breath sounds. No stridor. No wheezing, rhonchi or rales. Chest: Chest wall: No tenderness. Abdominal: General: Abdomen is flat. Bowel sounds are normal. There is no distension. Palpations: Abdomen is soft. There is no mass. Tenderness: There is no abdominal tenderness. There is no right CVA tenderness, left CVA tenderness, guarding or rebound. Hernia: No hernia is present. Musculoskeletal: General: No swelling or tenderness. Normal range of motion. Cervical back: Normal range of motion and neck supple. No rigidity or tenderness. Lymphadenopathy: Cervical: No cervical adenopathy. Skin: General: Skin is warm and dry. Capillary Refill: Capillary refill takes less than 2 seconds. Findings: No erythema, lesion or rash. Neurological: General: No focal deficit present. Mental Status: She is alert and oriented to person, place, and time. Motor: No weakness. Psychiatric: Mood and Affect: Mood normal. Behavior: Behavior normal. Thought Content: Thought content normal. Judgment: Judgment normal. Assessment and Plan ASSESSMENT/PLAN: 1. COVID-19 - ICD9: 079.89, ICD10: U07.1 (primary diagnosis) Onset of symptoms was 12/03/21 Seen here on 12/04/21 and tested POSITIVE - XR CHEST 2V FRONTAL/LAT IMPRESSION: No acute radiographic abnormality. Asp Net C Developer: KIMBERLY Transcribe Date/Time: Dec 09 2021 10:57A Dictated by : SYLVIA TOMLIN MD 2. SOB (shortness of breath) - ICD9: 786.05, ICD10: R06.02 Discussed likely deconditioning related to COVID Although, given her risk factors of smoking, COVID, oral contraceptives and obesity there is a risk for PE - [id number] and negative RX Prednisone and Albuterol inhaler Work note Follow up with PCP Discussed red flags and reasons to seek ED Kelly Villalobos TEACHING PROVIDER (Physician/PA/ARTIST AGENT) NOTE OF PERSONAL INVOLVEMENT IN CARE: I have personally seen and examined the patient and performed the medical decision-making components. I have reviewed the Advanced Practice Registered Nurse (ARTIST AGENT) Student's documentation and verified the findings in the note as written. Any additions or changes are noted in bold/italics. Signature: Priti Alvarado Date: 12/09/2021 Time: 3:08 PM documented in this encounter [facility] 12-05-2021 Miscellaneous Notes Patient given results and verbalized understanding of instructions given. Halley Bowden let patient know their covid19 was positive. They should continue quarantine for 5 days from first symptoms. if afebrile for 24 hours, and symptoms improving on day six can break quarantine but needs to wear a mask for 5 more days. If they get short of breath, chest pain or feeling very ill needs to be seen in the ED. documented in this encounter [facility] 12-04-2021 Note HNO ID: [id number] Author: Diana Louis PA-C Service: ? Author Type: Physician [employer] Lead Type: Progress Notes Filed: 12/04/2021 5:43 PM Note Text: This note was created using AlchemyAPI. Subjective Stephenie Ceja is a 26 year old female. HPI Patient presents with a chief complaint of cough, congestion fever and sore throat. This started yesterday. She did have a little bit of diarrhea this morning. She is achy. She has a headache. She did have COVID previously. She is not vaccinated against COVID. Denies chest pain or shortness of breath. She did take some acetaminophen qwva-hsq-elutrqz. Review of Systems Constitutional: Positive for chills, fatigue and fever. HENT: Positive for congestion, postnasal drip and sore throat. Respiratory: Positive for cough. Negative for shortness of breath. Cardiovascular: Negative. Gastrointestinal: Positive for diarrhea. Negative for abdominal pain, nausea and vomiting. Genitourinary: Negative. Musculoskeletal: Positive for myalgias. Neurological: Positive for headaches. All other systems reviewed and are negative. PAST MEDICAL HISTORY Diagnosis Date - Borderline personality disorder (HCC) diagnosed age 18, psychiatrist Dav - Chronic low back pain with left-sided sciatica Current Outpatient Medications Medication Sig Dispense Refill - amantadine HCl (SYMMETREL) 100 mg capsule - lisinopril (ZESTRIL, PRINIVIL) 10 mg tablet Take by mouth. - LATUDA 40 mg tablet TAKE 1 TABLET BY MOUTH ONCE DAILY WITH AT LEAST 350 CALORIES OF FOOD - LATUDA 60 mg tab tablet TAKE 1 TABLET BY MOUTH ONCE DAILY WITH FOOD (AT LEAST 350 CALORIES) - prazosin (MINIPRESS) 2 mg cap - Mirtazapine (REMERON) 7.5 mg tablet Take 7.5 mg by mouth daily at bedtime. - etonogestrel (NEXPLANON) 68 mg impl subdermal implant 68 mg by SUBDERMAL route. - busPIRone (BUSPAR) 15 mg tablet Take 15 mg by mouth three times daily as needed. - Stfciwupubqtpdx-Blkqzijck-LU (BROMFED DM) 2-30-10 mg/5 mL syrup Take 10 mL by mouth four times daily as needed. 200 mL 0 No current facility-administered medications for this visit. PAST SURGICAL HISTORY Procedure Laterality Date - NONE FAMILY HISTORY Problem Relation Age of Onset - Psychiatry Mother bipolar, depression - other (brain aneurysm) Mother - Hypertension Maternal Grandmother - Cancer Maternal Grandfather lung, smoker - Coronary Artery Disease Maternal Grandfather - Psychiatry Maternal Grandfather depression, anxiety Social History Tobacco Use - Smoking status: Current Every Day Smoker Types: Cigarettes - Smokeless tobacco: Never Used - Tobacco comment: age 13, 1/2 PPD Substance Use Topics - Alcohol use: Yes Comment: occasional - Drug use: Yes Types: Marijuana, Cocaine, Crack Cocaine, Amphetamines, Narcotics, Heroin, Crystal Meth Comment: in past 17-19 years old Objective BP 126/80 Pulse (!) 122 Temp 36.3 ?C (97.4 ?F) Resp 18 Wt (!) 156.6 kg (345 lb 3.2 oz) LMP 03/09/2017 (Approximate) SpO2 99% BMI 54.31 kg/m? Physical Exam Vitals reviewed. Constitutional: Appearance: Normal appearance. HENT: Head: Normocephalic and atraumatic. Right Ear: Tympanic membrane, ear canal and external ear normal. Left Ear: Tympanic membrane, ear canal and external ear normal. Nose: Congestion present. Mouth/Throat: Mouth: Mucous membranes are moist. Pharynx: Oropharynx is clear. Cardiovascular: Rate and Rhythm: Normal rate and regular rhythm. Heart sounds: Normal heart sounds. Pulmonary: Effort: Pulmonary effort is normal. Breath sounds: Normal breath sounds. Musculoskeletal: Cervical back: Neck supple. Skin: General: Skin is warm and dry. Findings: No rash. Neurological: Mental Status: She is alert. Assessment and Plan ASSESSMENT/PLAN: 1. Suspected 2019 novel coronavirus infection - ICD9: V01.79, ICD10: Z20.822 COVID testing pending. Discussed quarantine and supportive care. Bromfed prescribed for symptoms. Red flags for ER care discussed. All questions answered. Patient agreeable with plan. - 2019 CORONAVIRUS Diana Louis PA-C This dictation was partially or completely made using SeekPanda dictation software and may have some grammatical errors or incorrect wording not caught during proofreading. [facility] 07-19-2021 Hospital Discharge instructions Patient Education 07/19/2021 11:25:20 Ankle Sprain (Adult) Ankle Sprain (Adult) An ankle sprain is a stretching or tearing of the ligaments that hold the ankle joint together. There are no broken bones. An ankle sprain is a common injury for both children and adults. It happens when the ankle turns, twists, or rolls in an awkward way. This can be caused by a sports injury. Or it can happen from doing something as simple as stepping on an uneven surface. Ligaments are made of tough connective tissue. Normally, ligaments stretch a certain amount and then go back to their normal place. A sprain happens when a ligament is forced to stretch more than the normal amount. A severe sprain can actually tear the ligaments. If you have a severe sprain, you may have felt or heard something like a pop when you were injured. Ankle sprains are given a grade depending on whether they are mild, moderate, or severe: Grade 1 sprain. A mild sprain with minor stretching and damage to the ligament. Grade 2 sprain. A moderate sprain where the ligament is partly torn. Grade 3 sprain. The most severe kind of sprain. The ligament is completely torn. Most sprains take about 4 to 6 weeks to heal. A severe sprain can take several months to recover. Your healthcare provider may order X-rays to be sure you don t have a fracture, or broken bone. The injured area will feel sore. Swelling and pain may make it hard to walk. You may need crutches if walking is painful. Or your provider may have you use a cast boot or air splint. This will depend on the grade of ankle sprain that you have. Home care For a Grade 1 sprain, use RICE (rest, ice, compression, and elevation): Rest your ankle. Don t walk on it. Ice should be used right away to help control swelling. Place an ice pack over the injured area for 20 minutes. Do this every 3 to 6 hours for the first 24 to 48 hours. Keep using ice packs to ease pain and swelling as needed. To make an ice pack, put ice cubes in a plastic bag that seals at the top. Wrap the bag in a clean, thin towel or cloth. Never put ice or an ice pack directly on the skin. The ice pack can be put right on the cast, bandage, or splint. As the ice melts, be careful that the cast, bandage, or splint doesn t get wet. If you have a boot, open it to apply an ice pack, unless told otherwise by your provider. Compression devices help to control swelling. They also keep the ankle from moving and support your injured ankle. These devices include dressings, bandages, and wraps. Elevate or raise your ankle above the level of your heart when sitting or lying down. This is very important for the first 48 hours. Follow the RICE guidelines for a Grade 2 sprain. This type of sprain will take longer to heal. Your provider may have you wear a splint, cast, or brace to keep your ankle from moving. If you have a Grade 3 sprain, you are at risk for long-term ankle instability. In rare cases, surgery may be needed. Your provider may have you wear a short leg cast or a walking boot for 2 to 3 weeks. After 48 hours, it may be helpful to apply heat for 20 minutes several times a day. You can do this with a heating pad or warm compress. Or you may want to go back and forth between using ice and heat. Never apply heat directly to the skin. Always wrap the heating pad or warm compress in a clean, thin towel or cloth. You may use imcn-yod-jwcmpvh pain medicine (NSAIDS or nonsteroidal anti-inflammatory drugs) to control pain, unless another pain medicine was prescribed. Talk with your provider before using these medicines if you have chronic liver or kidney disease, or have ever had a stomach ulcer or gastrointestinal bleeding. Follow any rehabilitation exercises your provider gives you. These can help you be more flexible and improve your balance and coordination. This is helpful in preventing long-term ankle problems. Prevention To help prevent ankle sprains, it s important to have good strength, balance, and flexibility. Be sure to: Always warm up before you exercise or do something very active Be careful when walking or running on uneven or cracked surfaces Wear shoes that are in good condition and fit well Listen to your body s signals to slow down when you are in pain or tired Follow-up care Any X-rays you had today don t show any broken bones, breaks, or fractures. Sometimes fractures don t show up on the first X-ray. Bruises and sprains can sometimes hurt as much as a fracture. These injuries can take time to heal completely. If your symptoms don t get better or they get worse, talk with your healthcare provider. You may need a repeat X-ray. Follow up with your healthcare provider, or as advised. Check for any warning signs listed below. When to seek medical advice Call your healthcare provider right away if any of these occur: Fever of 100.4 F (38 C) or higher, or as directed by your healthcare provider Chills The injury doesn t seem to be healing The swelling comes back The cast or splint has a bad smell The plaster cast or splint gets wet or soft The fiberglass cast or splint gets wet and does not dry for 24 hours The pain or swelling increases, or redness appears Your toes become cold, blue, numb, or tingly The skin is discolored (looks blue, purple, or bliss), has blisters, or is irritated You re-injure your ankle [id number] [employer]. [address] [place] [address]. All rights reserved. This information is not intended as a substitute for professional medical care. Always follow your healthcare professional's instructions. Follow Up Care 07/19/2021 09:58:46 With:KYE BILLS MD Address: [address] [place] [phone] When:2-4 days [facility] 06-05-2021 Note . MICRO - Microbiology PROCEDURE: Affirm Pathogens DNA Direct Probe [*1] SOURCE: Vaginal Fluid BODY SITE: Cervix COLLECTED DATE/TIME: 06/03/2021 15:27 EST RECEIVED DATE/TIME: 06/04/2021 20:23 EST START DATE/TIME: 06/04/2021 20:24 EST FREE TEXT SOURCE: FINAL REPORTS Final Report [] Verified Date/Time/Personnel: 06/05/2021 09:29 EST Gardnerella vaginalis DNA Probe Positive Trichomonas vaginalis DNA Probe Negative Lindy species DNA Probe Negative Performing Locations *1: This test was performed at: [facility], [address] [place] [address], [facility]- , [facility] ([place]) 12-31-2020 Note HNO ID: [id number] Author: Adis Duong MD Service: ? Author Type: Physician Type: Progress Notes Filed: 12/31/2020 7:33 PM Note Text: Patient presents with: Cough: sore throat, body aches, hot and cold chills x today HPI: Feeling sick today Positive symptoms: Cough, Sore throat, Feverish, Chills, Body Aches, Nausea, Diarrhea, Nasal Congestion, Rhinorrhea, Post nasal drainage, Headache, fatigue, malaise Negative symptoms: Shortness of breath, Chest tightness, Vomiting, , OTC: none MEDICATIONS: Current Outpatient Medications Medication Sig - busPIRone (BUSPAR) 15 mg tablet Take 15 mg by mouth three times daily as needed. No current facility-administered medications for this visit. ALLERGIES: ALLERGIES Allergen Reactions - [place] Intolerance Dizzy, syncopal VITALS: BP 112/80 Pulse 96 Temp 36.8 ?C (98.3 ?F) Resp 16 Wt (!) 137.3 kg (302 lb 12.8 oz) LMP 03/09/2017 (Approximate) SpO2 99% BMI 47.64 kg/m? PHYSICAL EXAM: GEN: mildly ill appearing HEENT: PERRL, EOMI, conjunctiva clear Sinuses: non-tender frontal sinus, non-tender maxillary sinuses Throat: moist mucous membranes, mild erythema, no exudate Neck: supple, no thyromegaly, no lymphadenopathy HEART: regular rate and rhythm, no murmurs LUNGS: clear to auscultation, no wheezes or crackles, no increased WOB ASSESSMENT/PLAN: 1. Acute viral syndrome - ICD9: 079.99, ICD10: B34.9 - suspect viral URI, differential includes COVID-19. - Discussed supportive care treatment with home isolation, rest, cold medicine, and analgesia. - Red flags to seek further treatment include chest pain, shortness of breath, and lethargy; in the ER if severe. COVID-19 testing accepted. - 2019 CORONAVIRUS Adis Duong MD [facility] Evaluation + Plan note Future Appointments Appointment Date:08/06/2021 01:00:00 PM Scheduled Provider:SANTINO DOMINIQUE Location:[facility] Appointment Type:[facility] OV Future Scheduled TestsPathology [employer] Advisor Request 06/03/21US Breast Bilateral Complete 07/01/21 [facility] Evaluation + Plan note Future Appointments Appointment Date:08/13/2021 11:00:00 AM Scheduled Provider:SANTINO DOMINIQUE Location:[facility] Appointment Type:WH OV Future Scheduled TestsPathology [employer] Advisor Request 06/03/21 [facility] N[facility] No data available for this section [facility] Hospital Discharge instructions No data available for this section [facility] Progress note No data available for this section [facility] Summary Purpose Family History No Family History Records FoundNo Family History Records Found Advance Directives No Advanced Directives Records FoundNo Advanced Directives Records Found Health Concerns Infection Onset Date Last Indicated Resolved Time COVID-19 Rule-Out 12/04/2021 12/04/2021 12/05/2021 3:22 AM EDT COVID-19 Confirmed 12/04/2021 12/04/2021 Infection Onset Date Last Indicated Resolved Time COVID-19 Confirmed 12/04/2021 12/04/2021 Reason for Referral Specialty Diagnoses / Procedures Referred By Josie huizar Referred To Contact Priti Alvarado APRN.CNP [address] [place] [address] Referral ID Status Reason Start Date Expiration Date Visits Re quested Visits Authorized [id number] Closed 1 1 Additional Source Comments Care Team (unrecognized sect ion and content) Supervisor Lens Generating Relationship Specialty Start Date End Date Kye Bills MD [address] [place] [address] PCP - General Internal Medicine 12/04/21 INFORMATION SOURCE (unrecogn ized section and content) DATE CREATED AUTHOR AUTHOR'S ORGANMAYRA ATION 12/10/2021 [facility] Source Comments (unrecognize d section and content) In the event this informatio n is protected by the Federal Confidentiality of Alcohol and Drug Abuse Patient Records regulations: The Federal rules restrict any use of the information to criminally investigate or prosecute any alcohol or drug abuse patient.[facility] the event this information is protected by the Federal Confidentiality of Alcohol and Drug Abuse Patient Records regulations: The Federal rules restrict any use of the information to criminally investigate or prosecute any alcohol or drug abuse patient.[facility] Reason for Visit (unrecogniz ed section and content) Reason Comments Chest Congestion SOB x 2 days FOR RECORDS PERTAINING TO PATIENTS WHO ARE OR HAVE BEEN ENROLLED IN A CHEMICAL DEPENDENCY/SUBSTANCEABUSE PROGRAM, SOME INFORMATION MAY BE OMITTED. This clinical summary was aggregated from multiple sources. Caution should be exercised in using it in the provision of clinical care. This summary normalizes information from multiple sources, and as a consequence, information in this document may materially change the coding, format and clinical context of patient data. In addition, data may be omitted in some cases. CLINICAL DECISIONS SHOULD BE BASED ON THE PRIMARY CLINICAL RECORDS. [facility]. provides no warranty or guarantee of the accuracy or completeness of information in this document.
--- NOTE | 2023-05-06 16:47 | ED.RN ---
pts grandmother brought in 4 packs of cigarettes. placed in pt belongings.
--- NOTE | 2023-05-06 20:33 | ED.RN ---
ACCEPTED AT [facility] N[address]N [phone] RICHARD
--- NOTE | 2023-05-06 21:25 | ED.RN ---
SPOKE WITH [facility] WITH PHYSICIANS REGARDING LONG ETA. STATED THEY OUTSOURCED TO [facility], WHO DOES NOT HAVE ANY AVAILABLE CREWS FOR LONG DISTANCE PSYCH. [facility] STATES CANNOT DUE TO TIME OF NIGHT AND DISTANCE AND BEING PSYCH.
[2023-05-06] MEDS: Benztropine Mesylate 0.5 MG TABLET PO (23:14)
[2023-05-06] MEDS: Mirtazapine 30 MG Tablet PO (23:14)
[2023-05-06] MEDS: Doxazosin 1 MG Tablet 2 MG PO (23:14)
[2023-05-06] MEDS: QUEtiapine 25 MG Tablet 50 MG PO (23:14)
[2023-05-07] VITALS (10 sets, daily range): BP systolic 152; BP diastolic 94; PULSE 94; RESP 16–18; TEMP 36.7; O2SAT 94
[2023-05-07] MEDS: Gabapentin 100 MG Capsule PO (07:31)
[2023-05-07] MEDS: Benztropine Mesylate 0.5 MG TABLET PO (08:44)
[2023-05-07] MEDS: LURASIDONE HCL 60 MG TABLET PO (08:44)
== END 2023-05-07 09:23 ==
PROVIDERS: Emergency Provider Emergency Medicine; Visit Provider Emergency Medicine
DX: F31.9 Bipolar disorder, unspecified (principal); R45.851 Suicidal ideations; F43.10 Post-traumatic stress disorder, unspecified; F41.9 Anxiety disorder, unspecified; F17.210 Nicotine dependence, cigarettes, uncomplicated; Z79.899 Other long term (current) drug therapy
CPT/HCPCS: 80048; 80307; 80320; 84703; 85025; 87631; 93005; 99285; G0480

== ENCOUNTER → 2023-06-13 | Outpatient (CLI) | payer MEDICAID, SELFPAY ==
[2023-06-13 17:31] LABS: ALB/GLOB Ratio 0.8 RATIO (0.9-2.4); AST(SGOT) 19 U/L (15-37); Alanine Aminotransfer ALT/SGPT 26 U/L (13-56); Albumin, Serum 3.3 g/dL (3.2-5.0); Alkaline Phosphatase 128 U/L (45-117); Anion Gap 7 (5-15); BUN 14 mg/dL (7-18); BUN/Creat Ratio 20.8 RATIO (10-20); Calcium,Total 9.1 mg/dL (8.5-10.1); Chloride 107 mmol/L (98-107); Creatinine, Serum 0.67 mg/dL (0.55-1.02); EST Glomerular Filtration Rate 112 mL/min (>60); Est Glom Filt Rate - Afr Amer 136 mL/min (>60); Free T3 2.8 pg/mL (2.18-3.98); Globulin 4.1 g/dL (2.2-4.2); Glucose 95 mg/dL (74-106); Potassium 3.7 mmol/L (3.5-5.1); Protein, Total 7.4 g/dL (6.4-8.2); Sodium Level 139 mmol/L (136-145); T4 Total, Thyroxin 8.2 ug/dL (4.8-13.9); Thyroid Stim Hormone (TSH) 2.53 uIU/mL (0.358-3.74)
== END | disposition home or self-care (01) ==
LOC: LAB 14:48
PROVIDERS: Referring Provider Psychiatry & Neurology Psychiatry; Visit Provider Psychiatry & Neurology Psychiatry
DX: E07.9 Disorder of thyroid, unspecified (principal)
CPT/HCPCS: 36415; 80053; 84436; 84439; 84443; 84481

== ENCOUNTER → 2023-07-27 | Outpatient (CLI) | payer MEDICAID, SELFPAY ==
[2023-07-27 10:05] LABS: Cholesterol 146 mg/dL (200); High Density Lipoprotein 30 mg/dL; Triglycerides 166 mg/dL; Very Low Density Lipoprotein 33 mg/dL (5-40)
[2023-07-27 10:20] LABS: Vitamin B12 330 pg/mL (211-911); Vitamin D,25 Hydroxy 26.1 ng/mL
[2023-07-27 12:07] LABS: Hemoglobin A1c 6.8 % (3.8-5.6)
[2023-07-28 04:08] LABS: Thyroid Peroxidase AB < 9 IU/mL (0-34)
== END | disposition home or self-care (01) ==
PROVIDERS: PCP Family Medicine; Referring Provider Family Medicine; Visit Provider Family Medicine
DX: E07.9 Disorder of thyroid, unspecified (principal); Z68.44 Body mass index [BMI] 60.0-69.9, adult; E66.9 Obesity, unspecified
CPT/HCPCS: 36415; 80061; 82306; 82607; 83036; 86376

== ENCOUNTER 2023-12-05 20:09 | Emergency (ER) | payer MEDICAID, SELFPAY ==
[2023-12-05 20:09] VITALS: BP 169/108; PULSE 123; RESP 16; TEMP 36.8; O2SAT 96
--- NOTE | 2023-12-05 20:27 | EDS_ITS ---
HPI History of Present Illness Chief Complaint: Back Detail of Chief Complaint: Mid back pain status post blunt trauma due to fall Informant: patient Onset/Context/Timing Onset: Today (1.5 hours prior to arrival) Mechanism/Context: Blunt Injury Current Severity: Mild Maximum Severity: Moderate Worsened by: Movement and breathing Relieved by: Nothing Associated Symptoms Associated Symptoms: Negative for Parasthesias, Weakness, Loss of function, Inability to ambulate or Loss of consciousness Narrative Narrative: Patient is a 28-year-old woman. Patient presents because of back pain status post fall in the shower. She complains of pain dorsal region. She denies shortness of breath. She denies difficulty breathing. She denies head trauma. Denies loss of conscious. Denies being dazed. She is on no anticoagulant. She denies abdominal pain. She requested no opiates because she lives in sober home . 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 Frequent headaches History of breast lump Back problem Seasonal allergies PTSD (post-traumatic stress disorder) Suicidal behavior Home Medications ?Medication ?Instructions ?Recorded ?Last Taken ?Type mirtazapine 15 mg tablet (Remeron) 30 mg PO QHS 08/05/21 Unknown History prazosin 2 mg capsule 2 mg PO QHS 08/05/21 Unknown History etonogestrel 68 mg subdermal 1 implant subdermal ONCE 08/11/21 Unknown History implant (Nexplanon) lurasidone 60 mg tablet (Latuda) 60 mg PO DAILY 30 days #30 tabs 08/12/21 Unknown Rx benztropine 0.5 mg tablet 0.5 mg PO BID 05/06/23 Unknown History gabapentin 100 mg capsule 100 mg PO TID 05/06/23 Unknown History quetiapine 50 mg tablet 50 mg PO QHS 05/06/23 Unknown History naproxen 500 mg tablet 500 mg PO BID #14 tabs 12/05/23 Unknown Rx Allergy/AdvReac Type Severity Reaction Status Date / Time trazodone Allergy Mild nightmares Verified 12/05/23 20:09 lithium AdvReac Severe lightheaded Verified 12/05/23 20:09 aripiprazole (From Abilify) AdvReac Mild nightmares Verified 12/05/23 20:09 Family History Other Alcoholism Anxiety and depression Arthritis Asthma Breast cancer COPD (chronic obstructive pulmonary disease) CVA (cerebral vascular accident) Diabetes Heart disease Hyperlipemia Hypertension Melanoma Myocardial infarction Seizures Social History Smoking Status: Current every day smoker tobacco type: cigarettes how long ago did patient quit smoking: hasn't smoked in 2 weeks alcohol intake: never substance use type: does not use caffeine: Yes (1 cup coffee) Type: coffee what type of physical activity do you participate in: none seatbelt use: always do you feel safe at home: Yes additional social history: Single-Works at [employer] ROS ED Eyes Eyes: Denies blurry vision or change in vision ENT ENT ED: Denies rhinorrhea or sore throat Cardiovascular Cardiovascular: Denies chest pain Respiratory/Chest Respiratory/Chest: Denies cough, dyspnea or dyspnea on exertion Gastrointestinal Gastrointestinal: Denies abdominal pain Musculoskeletal Musculoskeletal: Reports back pain; Denies arthralgias, myalgias or neck pain Integumentary Denies Abrasions or rash Neurologic Neurologic: Denies headache(s) Hematologic/Lymphatic Hematologic/Lymphatic: Denies easy bleeding or easy bruising EXAM Physical Exam Const Vital Signs: 12/05/23 20:09 Temperature 98.2 F Temperature Source Temporal Pulse Rate 123 H Respiratory Rate 16 Blood Pressure 169/108 H Blood Pressure Mean 128 Pulse Ox 96 Oxygen Delivery Method Room Air Positive well nourished and well developed General Appearance ED: well developed and NAD HEENT atraumatic; Negative for tenderness Nose: Negative for septum abnormal Eyes PERRL and EOMs intact bilaterally Neck full ROM General: Negative for tenderness Resp normal respiratory effort and clear to auscultation bilaterally Resp Narrative: Breath sounds are symmetric. There is no crepitus or subcutaneous air. Cardio regular rhythm, S1 normal heart sound, S2 normal heart sound and no murmurs Rate: tachycardic GI normal to inspection, nondistended, normoactive bowel sounds, non-tender, non- distended and no masses Back/Spine normal to inspection; Negative for no thoracic nor lumbar tenderness Thoracic Spine / Upper Back: thoracic spinal tenderness T6, T7 and T8 swelling, warmth, erythema and ecchymosis Extremity normal to inspection and full ROM Neuro oriented x3 and CN's II-XII intact bilaterally Patti Coma Scale: document GCS findings Spontaneous Obeys Commands Oriented 15 Sensorium / Orientation: alert Psych mental status grossly normal and thought process normal Skin no rashes or lesions noted, no wounds, skin turgor normal and no jaundice MDM MDM MDM Narrative Medical decision making narrative: Patient does not have midline spine tenderness of the thoracic vertebrae. She has paradorsal discomfort. There is no evidence of trauma. Since patient has normal breath sounds imaging was not obtained nor is there imaging of the spine necessary. She was treated with NSAIDs since she has no contraindication. Discharge Plan Triage Chief Complaint: Back ED Provider: Cyrus Soares Dx/Rx/DC Orders Clinical Impression: Back contusion, Essential (primary) hypertension, Hypothyroidism, Anxiety and depression, Nicotine dependence, Injury due to fall, Body mass index (BMI) of 40.0 to 49.9, Sinus tachycardia Instructions: ED Back Contusion Prescriptions: New naproxen 500 mg tablet 500 mg PO BID Qty: 14 0RF No Action Nexplanon 68 mg implant 1 implant subdermal ONCE Rx Instructions: as a single dose mirtazapine [Remeron] 15 mg Tablet 30 mg PO QHS prazosin 2 mg Capsule 2 mg PO QHS lurasidone [Latuda] 60 mg tablet 60 mg PO DAILY 30 Days Qty: 30 1RF Rx Instructions: must administer with food (at least 350 calories) quetiapine 50 mg tablet 50 mg PO QHS benztropine 0.5 mg tablet 0.5 mg PO BID gabapentin 100 mg capsule 100 mg PO TID Primary Care Provider: Yaquelin Lang Referrals: Yaquelin Lang DO [Primary Care Provider] - 1 Week if not improving Print Language: Uzbek Disposition Disposition: Home, Self Care
[2023-12-05] MEDS: Naproxen 500 MG Tablet PO (20:43)
== END 2023-12-05 20:47 | disposition home or self-care (01) ==
LOC: ED 20:45
PROVIDERS: Emergency Provider Emergency Medicine; PCP Family Medicine; Visit Provider Emergency Medicine
DX: S20.229A Contusion of unspecified back wall of thorax, initial encounter (principal); I10 Essential (primary) hypertension; W18.2XXA Fall in (into) shower or empty bathtub, initial encounter; R00.0 Tachycardia, unspecified; E03.9 Hypothyroidism, unspecified; F32.A Depression, unspecified; F41.9 Anxiety disorder, unspecified; Z87.891 Personal history of nicotine dependence
CPT/HCPCS: 99282

== ENCOUNTER 2025-01-18 08:00 | Outpatient (RCR) | payer MEDICAID, SELFPAY ==
--- NOTE | 2025-01-18 09:15 | BH.NA ---
Physical Data Vital Signs Pulse Rate: 82 Blood Pressure: 158/90 Height/Weight Height: 1.7 m Weight:: 164.654 kg Weight in Pounds: 363.0 lbs Current Medication Compliance Medication Compliance Do you take your medication as prescribed?: Yes Functional Assessment Sleep Pattern Describe any problems with sleeping: Client states she sleeps 4-6 hours per night. Sensory/Communication Assess Communication Problems Do you have difficulty understanding what people are saying?: No Medical Problems/History Cardiac Conditions Cardiovascular: Hypertension and Other (See comments) (heart palpitations with anxiety) Metabolic Conditions Metabolic: Hypothyroidism Family History Family History Other Alcoholism Anxiety and depression Arthritis Asthma Breast cancer COPD (chronic obstructive pulmonary disease) CVA (cerebral vascular accident) Diabetes Heart disease Hyperlipemia Hypertension Melanoma Myocardial infarction Seizures Additional History Additional comments:: abnormal pap Surgical History Surgical History Have you had any surgeries? If so, list type and date:: Yes (teeth extraction) Substance Abuse Substance Abuse Please describe substance abuse in the last 30 days:: Client states she had 2 beers a few days ago, but denies regular alcohol use. Client states she has been a tobacco user since the age of 10 and currently smokes cigarettes and vapes at times. 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 Client states she has about 4 cups of coffee per week. Mental Status Summary Mental Status Significant Findings/Observations on Appearance and Mood:: Client is alert and oriented x 4. Client is cooperative with assessment. Client makes good eye contact. Client's voice has normal rate and volume. Client has an appropriate affect and makes logical associations. Client admits to daily auditory hallucinations of a woman's voice and at times also a child's voice. Client states she does have visual hallucinations at times during very stressful episodes (per patient, she has seen visual hallucinations of the woman and child that she has auditory hallucinations of). Client reports chronic SI, reports passive SI with no plan or intent at this time. Suicide Assessment Suicidal Ideation Are you currently or have you been suicidal in the past?: Yes Suicidal Intentional Rating Scale (SIRS): Suicidal thoughts (past) (chronic passive SI, denies plan/intent) Physician Notification Past Psychiatric History MH Treatment Hx Past Psychiatric Medications:: Maiden (caused confusion), Trazodone (made nightmares worse), Abilify (made nightmares worse), Zyprexa, Prozac, Seroquel, Hydroxyzine Age of first mental health symptoms: Client states she was first diagnosed as bipolar around age 15 and first took medication for her mental health around that time. Client states she has been told in the last year that she may not have bipolar disorder but that she has borderline personality disorder and PTSD. Describe (age, circumstance, etc) any past hospitalizations: Client states she has been hospitalized about 7-8 times, stating the last hospitalization was in May 2023 at [facility] for depression and SI (during her time at a rehab facility for substance use). Current providers for mental health treatment (counselor, psychiatrist, manager case management, etc.): Noah at [facility] for therapy Fall Risk Assessment Age Age: Less than 60 Mental Status Mental Status: Willing & able to ask for assistance when needed Physical Status Physical Status: No problems Impairments Impairments: None Elimination Elimination: Continent AND independent Gait or Balance Gait or Balance: Walks independently Hx of Falls History of falls in the past 6 months: No known history Medications/Substances Psychotropics:: Antidepressants, Antipsychotics and Anticholinergics (e.g. benztropine) Medications/substances used within the past 24 hours or ordered to administer: 3 or more of the medications/substances listed above Total Score Total Points:: 2 RN Summary of Impressions Impressions Recommendations Impressions: Psychiatric Issues: borderline personality disorder, PTSD Impression: General Medical Conditions: Client states she recently moved back here from [place] and is living with her grandma. Client states she knows she needs to see a COMMUNITY DEVELOPMENT WORKER for her history of abnormal pap and may need to see a doctor outside of Dr. Lang at [facility] Level of Care How do the client's current symptoms and functional deficits support need for this level of care?: Client was in IOP in 2021, and returns at this time by recommendation of her outpatient therapist for auditory hallucinations, panic attacks and mood instability. Client states auditory hallucinations are long-standing, stating they are usually daily at this time. Client states she hears a woman's voice saying negative things (You deserve all the bad stuff that happens to you because you're a bad person) on a daily basis, and at times hears a child's voice (the child is usually looking for their parents, per client). Client states she was previously on a higher dose of Latuda and it had been helping to decrease the hallucinations. Client reports chronic passive SI, but denies plan/intent. Client states she has a good support system of family and friends. Client reports an increase in panic attacks, crying spells and irritability. IOP will promote gains and prevent further decompensation while providing social support and skills training. Nutritional Screen Height/Weight Height: 1.7 m Weight:: 164.654 kg Weight in Pounds: 363.0 lbs Nutrition Screening Normal Weight: 167.829 kg Normal/Usual Weight in Pounds: 370.0 lbs Have you lost weight without trying: No (was on Trulicity to help her lose weight, wants to be on again) Have you been eating poorly because of a decreased appetite: No Recently been on tube feeds, TPN, or have any nutritional access device in place: No Have any large open wounds or wounds that are not healing: No Calculated Weight Change: [id number] Change in weight Score: 1 MST Screening Tool Score: 1
--- NOTE | 2025-01-18 09:50 | BH.PSY.EVA_ITS ---
Initial Treatment Plan Patient Information Visit Information: ADMISSION DATE: EXPECTED LOS: 6-8 weeks Diagnoses:: Bipolar d/o, current episode depressed Problems/Symptoms Problem #1:: Bipolar d/o, current episode depressed Symptom:: depressed mood, hopelessness, decreased appetite, poor sleep, poor concentration and low energy, crying spells, passive SI, anhedonia Problem #2:: PTSD Symptom:: history of trauma in childhood with intrusive thoughts, nightmares, flashbacks, some avoidance behaviors which she is working on, periods of irr itability and sleep disturbance as well as concentration problems Problem #3:: Panic disorder Symptom:: racing thoughts, racing heart, chest feels heavy, throat tightening, short of breath, crying and choking, sometimes feels like she needs to go to the hospital, last usually 20 minutes
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
[2025-01-18 10:28] VITALS: BP 158/90; PULSE 82
--- NOTE | 2025-01-18 11:10 | BH.SGPN.GN ---
Behaviors/Verbalizations/Mental Status: []Pt alert and oriented, casually dressed and groomed. Eye contact good. Motor activity appropriate. Speech within normal limits. Affect congruent, mood anxious. Thoughts linear, logical, no signs of hallucinations or delusions. Client Response/Progress/Benefit: []Pt responded well to session, engaged and contributing. Pt discussed with group things that contribute to mental wellness life. With peers, pt discussed things that would sabotage one's mental health wellness. Pt identified things pt personally does to sabotage as ?waiting until tomorrow.? Pt attentive during psychoeducation on ways to reduce self-sabotage and pt selected delay, distract, decide?as the skill that could help pt reduce self-sabotaging behaviors. Pt appeared to benefit from learning skills and gaining awareness of self-sabotaging behaviors. Pt will continue IOP tx to prevent decompensation, improve daily functioning, and increase self-awareness. Narrative Note: []
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
--- NOTE | 2025-01-21 09:00 | BH.SGPN.GN ---
Behaviors/Verbalizations/Mental Status: [] Pt alert and oriented, casually dressed and groomed. Eye contact good. Motor activity appropriate. Speech within normal limits. Affect congruent, mood anxious and depressed. Thoughts linear, logical, no signs of hallucinations or delusions. Reviewed pt?s symptom tracker, no risk for suicidal ideation, plan, or intent. Client Response/Progress/Benefit: []Pt was an active participant in group discussions. Attentive. Able to identify mental health wins as folding and putting away laundry and allowed self to feel emotions for a limited time. Pt stated she struggles with allowing herself to live in negative emotions and found it helpful to limit her crying to 15 minutes. Pt's stressor today is feeling lost in numerous areas of her life. The group offered pt encouragement and emotional support which pt reported was helpful. Pt is feeling lost? this morning. Pt receptive to feedback from peers. Progress noted. Benefited from group support, encouragement, and feedback. Will continue IOP tx to improve emotion regulation, challenge negative thoughts, and prevent decompensation.
--- NOTE | 2025-01-21 10:15 | BH.SGPN.GN ---
Behaviors/Verbalizations/Mental Status: []Pt alert and oriented, casually dressed and groomed. Eye contact good. Motor activity appropriate. Speech within normal limits. Affect congruent, mood stressed. Thoughts linear, logical, no signs of hallucinations or delusions. Client Response/Progress/Benefit: [] Pt participated during small group discussions. Attentive during psychoeducation about defense mechanisms. Showed engagement during small group discussions and helped group identify which defense mechanisms were maladaptive, adaptive, or ?somewhere in the bliss.? Pt worked with small group on identifying how each defense mechanism can impact mental health and gave examples. Group was mostly educational and pts discussed the different types of defense mechanisms. Pt reported benefits from identifying examples of different defense mechanisms and normalizing why they are used. Seemed to benefit from gaining awareness about the different defense mechanisms. Pt to continue IOP tx to reduce isolation, improve distress tolerance, and gain healthy coping skills. ?? Narrative Note: []
--- NOTE | 2025-01-21 11:15 | BH.SGPN.GN ---
Behaviors/Verbalizations/Mental Status: []Pt alert and oriented, casually dressed and groomed. Eye contact good. Motor activity appropriate. Speech within normal limits. Affect congruent, mood content. Thoughts linear, logical, no signs of hallucinations or delusions. Client Response/Progress/Benefit: [] Pt responded well to session, participating in activity and small group discussion. Group reviewed the rest of the defense mechanisms and discussed how these are adaptive, maladaptive, or somewhere in the bliss. Pt's defense mechanisms included humor and displacement. Shared that these reinforce unhealthy coping mechanisms. Pt listened to editor school photograph teach different skills to help pt?s cope with or change their defense mechanisms. Pt appeared to benefit from gaining insight to the different defense mechanisms and learning coping skills. Shared wanting to begin practicing more awareness of when using these defense mechanisms. Pt will continue IOP tx to prevent decompensation, improve distress tolerance skills, and increase emotion regulation. Narrative Note: []
--- NOTE | 2025-01-23 10:10 | BH.SGPN.GN ---
Behaviors/Verbalizations/Mental Status: [] Client alert and oriented, casually dressed and groomed. Eye contact good. Motor activity appropriate. Speech within normal limits. Affect congruent, mood euthymic. Thoughts linear, logical, no signs of hallucinations or delusions. Client Response/Progress/Benefit: [] Client responded well to session AEB taking notes throughout and listening attentively to others. Client was attentive throughout group activity identifying famous individuals and how they overcame failure to be successful. Client helped group identify how fear of failure can impact mental health and relationships. Client participated in experiential activity, working with group members to problem solve. Appeared to benefit from increased knowledge of fear of failure. Will continue IOP tx to increase overall functioning, reduce distorted thinking patterns, and reduce avoidance. Narrative Note: []
--- NOTE | 2025-01-23 11:10 | BH.SGPN.GN ---
Behaviors/Verbalizations/Mental Status: [] Client alert and oriented, casually dressed and groomed. Eye contact good. Motor activity appropriate. Speech within normal limits. Affect constricted, mood euthymic. Thoughts linear, logical, no signs of hallucinations or delusions. Client Response/Progress/Benefit: [] Client responded well to session, engaged in the experiential activity and attentive throughout group processing. Client reported fear of failure has kept client from getting GED. Client completed fear of failure worksheet and was able to identify thoughts and behaviors that reinforce personal fear of failure including fear of disappointing family. Client participated in small group discussion regarding strategies to overcome fear of failure. Identified wanting to pace herself so that she does not get overwhelmed. Appeared to benefit from increased knowledge of strategies to combat fear of failure and gaining self-awareness. Client will continue IOP tx to prevent decompensation. Narrative Note: []
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
--- NOTE | 2025-01-25 09:05 | BH.SGPN.GN ---
Behaviors/Verbalizations/Mental Status: [] Eye contact is good. Motor activity is appropriate. Appearance is casual. Speech is Appropriate. Mood is anxious. Affect is full. Thoughts are linear and logical. No evidence of psychosis. Reviewed daily check in sheet and pt reports 3/5 for suicidal thoughts which is within established baseline. Client Response/Progress/Benefit: [] Pt was an active participant in group discussions. Attentive. Daily symptom tracker notes 2/5 for anxiety and 2/5 for depression, though positive throughout check-in. Did well to identify 2 mental health wins, which included getting here on time today despite being out late with her cousin the night before. Additional win noted as doing well to manage her emotions and not lash out on others despite recent increase in irritability. Stressor noted as recently learning her grandmother, whom she was raised by, has stage 4 kidney disease. Appeared to benefit from provided support, encouragement, and feedback. Will continue IOP tx to improve self-confidence, mood stability, and prevent decompensation. Narrative Note: []
--- NOTE | 2025-01-25 10:10 | BH.SGPN.GN ---
Behaviors/Verbalizations/Mental Status: []Eye contact is good. Motor activity is appropriate. Appearance is casual. Speech is Appropriate. Mood is content. Affect is congruent. Thoughts are linear and logical. No evidence of psychosis. Client Response/Progress/Benefit: []Pt was an active participant in group discussion. Engaged and attentive during psychoeducation and interactive discussion on coping skills, why people use unhealthy coping skills, how to replace unhealthy coping skills, and internal vs external coping skills. Attentive as peers came up with list of unhealthy coping skills. Pt reported personally, they tend to either distract or self-harm. Group discussed the effects of maladaptive coping skills on mental health. Benefited from increased understanding of unhealthy coping skills and the need for developing healthy internal and external coping skills. Actively participated during experiential group activity and was able to related this activity to group topic. Will continue in IOP to promote healthy thinking patterns, apply healthy coping skills, and promote mood stability. Narrative Note: []
--- NOTE | 2025-01-25 11:10 | BH.SGPN.GN ---
Pt alert and oriented, casual in appearance. Eye contact good. Motor activity appropriate. Speech within normal limits. Affect constricted, mood content. Thoughts linear, logical, no signs of hallucinations or delusions. Client Response/Progress/Benefit: [] Pt engaged in group discussions and was attentive AEB taking notes, and listening attentively to others. Group discussed the different categories of coping skills which included distraction, emotional release, grounding, self-love, and thought challenging. Pt participated in creating a coping skills ?menu? from the different categories of coping skills. Pt's coping skill menu included: photography, TIPP skill, cooking, and self-care. Appeared to benefit from increasing repertoire of healthy coping skills. Will continue IOP to improve distress tolerance, improve healthy coping, and prevent decompensation. Narrative Note: []
--- NOTE | 2025-01-28 09:00 | BH.SGPN.GN ---
Behaviors/Verbalizations/Mental Status: [] Pt alert and oriented, casually dressed and groomed. Eye contact fair. Motor activity appropriate. Speech within normal limits. Affect congruent, mood anxious. Thoughts linear, logical, no signs of hallucinations or delusions. Reviewed pt?s symptom tracker, 2/5 with 5 being severe for risk for suicidal ideation, indicates a 1/5 for plan, and intent to kill self. Pt does not appear to be imminent risk to harm self. 01/28/25. Client Response/Progress/Benefit: []Pt was an active participant in group discussions. Attentive. Per patients daily symptom tracker, pt indicates a 3/5 for depression and a 4/5 for anxiety, with 5 being severe. Pt shared one of her mental health positives as cleaning her room. When asked, she stated that this shows an positive increase in her mental health as she typically feels too overwhelmed or anxious to clean. Pt also reports finding enjoyment again in [employer] card reading, spending three hours journaling in which she reported feeling no anxiety or panic. She states that she is glad to be able to enjoy these hobbies again, as she felt that she had lost interest. Pt reports sleep as her main stressor. She was taking melatonin which initially helped, but began to cause night terrors. Pt was supportive and attentive to others in the group. Pt seemed to benefit from support from peers. Will continue IOP tx to promote healthy coping mechanisms, reduce negative thinking patterns, and gain self-confidence.
--- NOTE | 2025-01-28 11:15 | BH.SGPN.GN ---
Behaviors/Verbalizations/Mental Status: []Pt alert and oriented, casually dressed and groomed. Eye contact good. Motor activity appropriate. Speech within normal limits. Mood engaged. Affect congruent. Thoughts linear, logical, no signs of hallucinations or delusions. Client Response/Progress/Benefit: [] Pt responded well to session, engaged and taking notes throughout. Worked with group to connect components of the experiential activity with characteristics of healthy and unhealthy relationships. Attentive during psychoeducation about characteristics of healthy, unhealthy, and abusive relationships. Pt identified wanting to work on ?being calm when people walk about what?s bother them.? Appeared to benefit from identifying current healthy relationship attributes. Pt to continue IOP tx to prevent decompensation, improve daily functioning, and reduce isolation. Narrative Note: []
--- NOTE | 2025-01-28 12:12 | BH.MDN ---
Multi-Disciplinary Note Note 30-min Individual: Time Started:: 10:33 Date: 02/19/25 Purpose of session/treatment goals addressed:: Purpose of session was to address tx plan goal #1 obj #1 and goal #2 obj #1 Eye Contact:: Good Motor Activity:: Appropriate Appearance:: Casual Speech:: Appropriate Mood:: Anxious and Dysthymic Affect:: Congruent Thoughts:: Linear, Logical and No evidence of hallucinations/delusions noted Staff Interventions:: psychoeducation on: (borderline personality disorder), CBT techniques, strengths perspective and goal setting Client Response:: Pt receptive of session, actively engaged throughout. Reports ?yesterday was a really good day for me? and described spending time with family and visiting her aunt who was recently hospitalized. Went on to note that although she is glad to be home and reconnecting with her supports, she is struggling with ?overdoing it?. Noted that since moving back [facility], pt has spent almost every day with family doing something and has not had much time to herself. Shared wanting to be able to set this boundary and re-engage in her own hobbies and interests, but is worried that she will ?breakdown? when alone. Pt noted that since the relationship ended, she has felt she has lost a sense of herself and no longer knows who she is or what she enjoys. Receptive of discussion reviewing common characteristics of borderline personality disorder. Reports connecting with several of the characteristics and wants to work on improving interpersonal communication, as well as rediscovering who she is outside of a relationship. Plan for pt to practice reframing time alone as time to ?recharge? to shift this in a more positive light. Pt reports plans to try and look over some tarot cards this afternoon, as well as have a conversation with her supports on reserving one day each week as time for self-care. Risks/Concerns:: Pt denies any suicidal ideation, plan, or intent. Progress Toward Goals/Plan:: Progress variable. Pt reports mood is improving and she is finding the support of the group environment to be helpful. Does indicate healthier sleep hygiene practices and no longer journaling about trauma buntil in a more stable place. Continues to endorse night terrors, anxiety, and loss of sense of self. Pt open to learning more about BPD and focusing on distress tolerance skills. Recommended continued IOP tx to improve mood stability, prevent decompensation, and encourage healthier coping. Time Stopped:: 11:03
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
== END 2025-01-29 23:59 ==
LOC: BHIOP 08:00
PROVIDERS: PCP Family Medicine; Referring Provider Internal Medicine; Visit Provider Internal Medicine
DX: F31.9 Bipolar disorder, unspecified (principal); F41.0 Panic disorder [episodic paroxysmal anxiety]; F43.10 Post-traumatic stress disorder, unspecified
CPT/HCPCS: H2012; H2020; S9480; 90832

== ENCOUNTER 2025-01-30 08:06 | Outpatient (RCR) | payer MEDICAID, SELFPAY ==
--- NOTE | 2025-01-30 09:05 | BH.SGPN.GN ---
Behaviors/Verbalizations/Mental Status: [] Eye contact is good. Motor activity is appropriate. Appearance is casual. Speech is Appropriate. Mood is anxious. Affect is congruent. Thoughts are linear and logical. No evidence of psychosis. Reviewed daily check in sheet and suicidal thoughts are at baseline. Client Response/Progress/Benefit: [] Pt participated at times during the group discussions. Attentive. Daily symptom tracker notes 3/5 for anxiety and 2/5 for depression. Pt was able to identify mental health wins and healthy habits. She is currently reading a book about self-care and reports finding purpose and meaning daily through recent interest/hobby. Looking forward to attending her sister's wedding this weekend as well. Also reports medications are starting to work stating I don't have anymore voices. Stressor remains her nightmares and poor sleep. Last night she awoke terrified for no reason and jumped out of bed. She could not recall the nightmare or what triggered her to jump out of the bed. Due to intensity of this event she was unable to fall back asleep. Emotion for today is excited and tired. Benefited from group support, encouragement, and feedback. Will continue in IOP to prevent decompensation, stablzie mood, increase healthy coping, and improve functioning. Narrative Note: []
--- NOTE | 2025-01-30 10:10 | BH.SGPN.GN ---
Behaviors/Verbalizations/Mental Status: []Eye contact is good. Motor activity is appropriate. Appearance is casual. Speech is Appropriate. Mood is anxious. Affect is congruent. Thoughts are linear and logical. No evidence of psychosis. Client Response/Progress/Benefit: [] Pt receptive to session AEB listening attentively to others and taking notes. Pt attentive and contributed throughout psychoeducation on the cognitive triangle and maintenance cycles. Pt engaged during group discussion reviewing the impact of daily activities and behaviors in either reinforcing unhealthy maintenance cycles and depression or assisting in reducing symptoms (?down? vs ?up? activities). Pt participated during interactive discussion in which pt identified their own common up activities (being around people who are supportive) and down activities (isolating and not getting out of bed). Appeared to benefit from increased awareness of current behaviors and impact these have on mental health. Will continue IOP to prevent decompensation, improve daily functioning, and increase distress tolerance. ??? Narrative Note: []
--- NOTE | 2025-01-30 11:10 | BH.SGPN.GN ---
Behaviors/Verbalizations/Mental Status: []Pt alert and oriented, casually dressed and groomed. Eye contact fair. Motor activity appropriate. Speech within normal limits. Affect congruent, mood anxious. Thoughts linear, logical, no signs of hallucinations or delusions. Client Response/Progress/Benefit: [] Pt responded well to session, attentive and engaged in group discussions and activity. Actively engaged in continued discussion about up activities and down activities. Active participant as group discussed values and the benefits that knowing one's values can have on one's mental health. Client shared they would like to focus on strengthening their value of mental health by continuing her counseling and applying skills more consistently. Benefited from increased awareness of their up activities and how incorporating their values into behavioral activation goals can positively impact mental health. Will continue in IOP to continue building confidence, promote healthy coping, and prevent decompensation.
--- NOTE | 2025-02-01 08:46 | PCM.BH.PN_ITS ---
Intake Vital Signs 01/18/25 10:28 02/01/25 08:46 Height 1.7 m 1.7 m Weight: 164.654 kg BP 158/90 H Pulse 82 Intake Visit Reasons: bipolar disorder, NOS Allergies trazodone Allergy (Mild, Verified 01/18/25 09:26) nightmares lithium Adverse Reaction (Severe, Verified 01/18/25 09:26) lightheaded aripiprazole (From [facility]) Adverse Reaction (Mild, Verified 01/18/25 09:26) nightmares Medications ?Medication ?Instructions ?Recorded ?Confirmed ?Type etonogestrel 68 mg subdermal 1 implant subdermal ONCE 08/11/21 01/18/25 History implant (Nexplanon) buspirone 15 mg tablet 15 mg PO BID 30 days #60 tab s 01/18/25 Rx hydroxyzine HCl 25 mg tablet 25 mg PO BID PRN anxiety #60 tabs 01/18/25 Rx lurasidone 40 mg tablet (Latuda) 40 mg PO QPM #30 tabs 01/18/25 Rx mirtazapine 15 mg tablet (Remeron) 30 mg (2 x 15 mg) P O QHS 30 days 01/18/25 Rx #60 tabs benztropine 0.5 mg tablet 0.5 mg PO BID 30 days #60 ta bs 02/01/25 Rx prazosin 2 mg capsule 4 mg (2 x 2 mg) PO QHS 30 da ys #60 02/01/25 Rx caps HPI () History of Present Illness History provided by: patient Chief complaint: f/u Bipolar NOS HPI: -Current psychiatric medications: Benztropine 0.5 mg nightly, BuSpar 15 mg twice daily, hydroxyzine 25 mg twice daily as needed, Latuda 40 mg nightly, mirtazapine 30 mg nightly, prazosin 2 mg nightly Waking up nigh tterrors, remembering dreams, decreasing voices, hydroxyzine once a day, helpful -SUBJECTVE: Patient's suicidal thoughts and voices have increased significantly since she started taking the increased dose of Latuda, still having some thoughts of but more perseverating on and not necessarily having thoughts of wanting to actually . Has not had any active SI or plans since increasing the Latuda, has noted over the past couple weeks having increased nightmares and night terrors and has been remembering her dreams as well which is prior to her being about a week ago. She started melatonin which has helped some with sleep but has not affected the nightmares positively or negatively. Has found the prazosin very helpful for nightmares in the past and used to be up to 6 mg, she is unsure why they decreased it previously she denies having any side effects. Overall has had some improvement in mood and anxiety. Denies any active SI, no AH, as above improvement in patient's hallucinations. Does note since increasing the Latuda she feels like she is getting the charley horses in her legs which has happened previously when it was increased and re solved with increasing the Cogentin, she is agreeable to increasing this to twice daily Exam Mental Status Exam- Psych () Appearance casually dressed, adequately groomed and no apparent distress Attitude cooperative and calm Activity/Motor Behavior MSE activity/motor behavior finding no adventitious movements Speech regular rate and regular volume Mood OK Affect other (Slightly broader than previous) Thought Process linear and logical Thought Content no delusions and hallucinations (Intermittent auditory hallucinations signific antly improved) Attention intact Concentration intact Sensorium/Orientation awake and alert Memory/Cognition intact Insight fair Judgement fair Assessment & Plan () Assessment & Plan (1) Bipolar 1 disorder: Plan: Patient doing much better with her mood and hallucinations with increased dose of Latuda, we will continue this at current dosing but will increase patient's Cogentin, she has required this to be increased in the past with higher doses of Latuda, continue BuSpar and Remeron at current doses (2) PTSD (post-traumatic stress disorder): Plan: Patient's had increased nightmares and has been remembering her dreams over the past couple of weeks, has found melatonin somewhat helpful with falling asleep but not staying asleep, she does not note any increase in her nightmares with this. She had been on higher doses of prazosin with improvement in nightmares, she is unclear why they decreased her dose. Will reincrease to 4 mg and titrate further as needed/tolerated. Continue BuSpar, Latuda, Remeron. She did note that Seroquel had been helpful for her for sleep in the past in addition to her Remeron, discussed that she is already on 1 atypical antipsychotic, Latuda, and typically we try to avoid giving multiple due to risk of increased side effects, she is agreeable to trialing increase in prazosin verbalized understanding (3) Panic disorder: Plan: Mood significantly improved, is still having anxiety and well symptoms overall are improved has been having take the hydroxyzine. Does note that the hydroxyzine at the current dose has been quite helpful but ultimately her goal would to be to get off of it entirely, discussed that the long-term goal would be that she would not need to take this routinely and that the other medication adjustments would decrease her overall anxiety and decrease amount of panic attacks. Medications: Changed From benztropine 0.5 mg PO QHS 30 days 30 tabs 0RF To benztropine 0.5 mg PO BID 30 days 60 tabs 0RF From prazosin 2 mg PO QHS 30 days 30 caps 0RF To prazosin 4 mg (2 x 2 mg) PO QHS 30 days 60 caps 0RF Charges/Coding Behavior Health Behavior Health EST Pt E/M: 38760 Est Pt Level IV
--- NOTE | 2025-02-01 10:10 | BH.SGPN.GN ---
Behaviors/Verbalizations/Mental Status: [] Eye contact is good. Motor activity is appropriate. Appearance is casual. Speech is Appropriate. Mood is euthymic. Affect is congruent. Thoughts are linear and logical. No evidence of psychosis. Client Response/Progress/Benefit: [] Pt engaged participant AEB listening to others, engaging in activity, and providing feedback at times. Attentive during psychoeducation and provided insight into obstacles that impede mental wellness. Pt shared with group current mental health reality and desired mental health reality. Stating she would like to have more control over her thoughts. Identified barriers to desired reality include: no control of self and self pity. Benefited from taking look at current mental health state and obstacles for progress. Pt to continue IOP tx to improve mood stability, reduce reliance on maladaptive coping, and prevent decompensation. Narrative Note: []
--- NOTE | 2025-02-01 11:10 | BH.SGPN.GN ---
Behaviors/Verbalizations/Mental Status: [] Eye contact is good. Motor activity is appropriate. Appearance is casual. Speech is Appropriate. Mood is euthymic. Affect is congruent. Thoughts are linear and logical. No evidence of psychosis. Client Response/Progress/Benefit: [] Pt was an engaged participant in group discussion and activity. Worked with group to identify strategies to help overcome barriers and obstacles to desired reality. Group developed strategies for the common barriers. Identified personal barriers to desired reality and choose one obstacle to work. Pt stated they want to utilize strategy of opposite action to combat barriers. Pt seemed to benefit from increased repertoire of healthy coping skills/strategies to overcome common barriers to moving forward. Pt is to continue IOP to increase healthy coping skills, challenge distortions, and prevent decompensation. Narrative Note: []
--- NOTE | 2025-02-04 09:05 | BH.SGPN.GN ---
Behaviors/Verbalizations/Mental Status: [] Eye contact is good. Motor activity is appropriate. Appearance is casual. Speech is Appropriate. Mood is euthymic. Affect is full. Thoughts are linear and logical. No evidence of psychosis. Reviewed daily check in sheet and no reports of suicidal ideations or intent. Client Response/Progress/Benefit: [] Pt participated at times during the group discussions. Attentive. Daily symptom tracker notes 3/5 for anxiety and 2/5 for agitation. Pt's sister got over the weekend which was very emotional. Overall she reports that the wedding went well, however there have been increase conflict with certain family for the past several weeks. She elaborated on the conflict and her desire to address it with certain family members. Able to use anger mgmt skills in the moment She also participated with peer on group discussions around family conflict, boundaries, and its impact on mental health. Receptive to feedback on effective ways to communicate and engage in crucial conversations. Improved sleep with recent medication changes. Will continue in IOP to prevent decompensation, stabilize mood, and improve functioning. Narrative Note: []
--- NOTE | 2025-02-04 10:15 | BH.SGPN.GN ---
Behaviors/Verbalizations/Mental Status: [] Pt alert and oriented, casually dressed and groomed. Eye contact good. Motor activity appropriate. Speech within normal limits. Affect congruent, mood anxious and dysthymic. Thoughts linear, logical, no signs of hallucinations or delusions. Client Response/Progress/Benefit: [] Pt participated in group discussions. Attentive during psychoeducation on the CBT [place] (Thoughts, Behaviors, Emotions). Engaged in group discussion on how thoughts and behaviors can contribute to maintaining adverse feelings, such as depression, anxiety, and irritability. Completed worksheet in which pt identified obstacles and/or thoughts that are keeping them stuck. Shared obstacles that included; self-doubt, body-image issues, and negative self-talk. Pt benefited from increased awareness of the basis of CBT therapy as well as specific thoughts that are impacting pt's progress. Will continue in IOP to prevent decompensation, increase healthy coping, and improve functioning. Narrative Note: []
--- NOTE | 2025-02-04 11:15 | BH.SGPN.GN ---
Behaviors/Verbalizations/Mental Status: []Pt alert and oriented, casually dressed and groomed. Eye contact good. Motor activity appropriate. Speech within normal limits. Affect congruent, mood anxious. Thoughts linear, logical, no signs of hallucinations or delusions. Client Response/Progress/Benefit: [] Pt responded well to session, contributing to discussion and attentive throughout. Pt identified a negative thought that has kept them stuck. Pt's thought was I?m not good enough.? Pt reported when they think this way, pt avoids, isolates, and does not try new things. ?Pt worked to reframe the thought by finding more rational, realistic ways to look at the thoughts and then processed them within group setting. Pt reframed the thought to ?I am good at least at one thing, so therefore I?m not bad at everything.? Pt appeared to benefit from practicing challenging negative thinking with peers and gaining coping skills. Pt will continue IOP tx to prevent decompensation, improve daily functioning, and gain self-esteem. Narrative Note: []
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
--- NOTE | 2025-02-06 09:00 | BH.SGPN.GN ---
Behaviors/Verbalizations/Mental Status: [] Pt alert and oriented, Neatly dressed and groomed. Eye contact good. Motor activity appropriate. Speech within normal limits. Affect congruent, mood calm. Thoughts linear, logical, no signs of hallucinations or delusions. Reviewed pt?s symptom tracker, 1/5 with 5 being severe for risk for suicidal ideation, indicates a 0/5 for plan, and intent to kill self. Pt does not appear to be imminent risk to harm self.02/06/25. Client Response/Progress/Benefit: []Pt was an active participant in group discussions. Attentive. Per patients daily symptom tracker, pt indicates a 1/5 for depression and a 2/5 for anxiety, with 5 being severe. Pt shared their mental health positive was setting a boundary with a friend who she felt was not a healthy part of her own mental health journey, as this friend regularly complained about therapy, stating that it did not work. Pt also had a productive conversation with her cousin whom had been in an argument with pt's sister. Pt was able to accept that she can be there for support, but cannot control the relationship between her cousin and sister. Pt's stressor included multiple family members having health issues, and not communicating those health issues with the family. Pt was supportive and attentive to others in the group. Pt seemed to benefit from support from peers. Will continue IOP tx to promote healthy coping mechanisms, reduce negative thinking patterns, and prevent decompensation.
--- NOTE | 2025-02-06 10:15 | BH.SGPN.GN ---
Behaviors/Verbalizations/Mental Status: [] Client alert and oriented, casually dressed and groomed. Eye contact good. Motor activity appropriate. Speech within normal limits. Affect congruent, mood anxious. Thoughts linear, logical, no signs of hallucinations or delusions. Client Response/Progress/Benefit: [] Pt engaged in session AEB client listening attentively to peers and providing input. Attentive and contributed to discussion as group worked on defining self-forgiveness and identifying mental health benefit. Identified benefits as: reduce guilt/shame, increase self-confidence, decrease negative self-talk, healthier relationships, ect. ?Worked in small groups to identify factors that can make self-forgiveness difficult. Pt stated having a hard time forgiving self for being gone of the past year. Pt identified a personal barrier to self-forgiveness. Benefited from increased education on self-forgiveness, benefits, and what effects it. Pt will continue IOP tx to improve emotion regulation, maintain boundaries with unhealthy people, and prevent decompensation.
--- NOTE | 2025-02-06 11:15 | BH.SGPN.GN ---
Behaviors/Verbalizations/Mental Status: [] Client alert and oriented, casually dressed and groomed. Eye contact good. Motor activity appropriate. Speech within normal limits. Affect congruent, mood dysthymic. Thoughts linear, logical, no signs of hallucinations or delusions. Client Response/Progress/Benefit: [] Pt engaged in session AEB client listening attentively to peers and providing input. Attentive during psychoeducation on the 4 R?s of Self-Forgiveness (Responsibility, Remorse, Congregation, Renewal). Contributed to discussion as group worked on identifying strategies for improving ability to practice self-forgiveness. Reports wanting to practice thought challenging and sitting with the uncomfortable. Engaged in self-forgiveness activity and benefited from increased education on self-forgiveness building skills. Pt will continue IOP tx to improve mood stability, increase self-advocacy, and prevent decompensation. Narrative Note: []
--- NOTE | 2025-02-07 09:00 | BH.SGPN.GN ---
Behaviors/Verbalizations/Mental Status: [] Eye contact is good. Motor activity is appropriate. Appearance is casual. Speech is Appropriate. Mood is euthymic. Affect is full. Thoughts are linear and logical. No evidence of psychosis. Client Response/Progress/Benefit: [] Pt participated at times during the group discussions. Attentive. Shared with the group trying strategies to decrease ?obsessive thinking? and caring for herself. Her struggles with sleep continue however she has noticed improvement with recent medication changes. Emotion for today is ?happy?. Benefited from group support, encouragement, and feedback. Will continue in IOP to prevent decompensation, stabilize mood/hallucinations, and increase healthy coping. Narrative Note: []
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
--- NOTE | 2025-02-07 11:10 | BH.SGPN.GN ---
Behaviors/Verbalizations/Mental Status: []Pt alert and oriented, casually dressed and groomed. Eye contact fair. Motor activity appropriate. Speech within normal limits. Affect congruent, mood anxious. Thoughts linear, logical, no signs of hallucinations or delusions. Client Response/Progress/Benefit: [] Client responded well to session AEB listening attentively to peers, providing input, as well as taking notes throughout. Group discussed different styles of boundary setting. Worked with group to discuss positive and negative consequences from each boundary style. Participated in small group discussion brainstorming various strategies for improving healthy boundary setting. Pt took time to complete reflection on which skills would like to implement to improve boundaries. Seemed to benefit from increased awareness of how different boundary styles can impact mental health. Will continue IOP tx improve distress tolerance, continue challenging negative thoughts, and prevent decompensation.
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
--- NOTE | 2025-02-11 10:15 | BH.SGPN.GN ---
Behaviors/Verbalizations/Mental Status: [] Eye contact is good. Motor activity is appropriate. Appearance is casual. Speech is Appropriate. Mood is content. Affect is congruent. Thoughts are linear and logical. No evidence of psychosis. Client Response/Progress/Benefit: [] Pt engaged in session AEB listening attentively to others and providing input throughout. Pt engaged in activity, able to connect how it can be uncomfortable and difficult to practice acceptance when situations are out of one?s own control. Identified what they are struggling to accept in personal life. Worked with peer group to define acceptance and identify the benefits that acceptance can bring. Benefits included; reduce anxiety, reduced stress, helps one to focus on situations we can change, and decreased negative self-talk. Seemed to benefit from increased awareness of the meaning as well as the importance of acceptance. Will continue in IOP to improve emotion regulation, challenge distortions, and prevent decompensation. Narrative Note: []
--- NOTE | 2025-02-11 11:15 | BH.SGPN.GN ---
Behaviors/Verbalizations/Mental Status: []Pt alert and oriented, casually dressed and groomed. Eye contact good. Motor activity appropriate. Speech within normal limits. Affect congruent, mood dysthymic. Thoughts linear, logical, no signs of hallucinations or delusions. Client Response/Progress/Benefit: [] Pt responded well to session AEB taking notes and contributing to discussion throughout. Pt engaged as group continued discussion on acceptance and the mental health benefits of practicing acceptance. Pt and peers identified what makes acceptance challenging and pt completed a self-reflection exercise on what is hard to accept in pt's life. Pt identified something that is currently hard to accept as ?that I could be worthy of healthy love.? Pt stated by not accepting this, it leads to ?negative self-talk, isolation, and no boundaries?. Group identified strategies to increase acceptance. Pt noted wanting to work on ?self-soothing affirmations? as a strategy for improving acceptance. Pt appeared to benefit from gaining insight and learning strategies to increase acceptance. Pt will continue IOP tx to promote mood stability, combat negative thinking patterns, and improve daily functioning. Narrative Note: []
--- NOTE | 2025-02-12 09:00 | BH.SGPN.GN ---
Behaviors/Verbalizations/Mental Status: [] Eye contact is good. Motor activity is appropriate. Appearance is casual. Speech is Appropriate. Mood is anxious. Affect is congruent. Thoughts are linear and logical. No evidence of psychosis. Client Response/Progress/Benefit: [] Pt participated when prompted. Attentive. Mental health win is that her sleep is improving. Very brief check in this AM. ? I?m here today?. She talked mostly about stressors related to finances and struggling to work consistently due to her mental health. Progress noted. Benefited form group support, encouragement, and feedback. Will continue in IOP to prevent decompensation, stabilize mood, and improve functioning. Narrative Note: []
--- NOTE | 2025-02-12 10:10 | BH.SGPN.GN ---
Behaviors/Verbalizations/Mental Status: [] Pt alert and oriented, casually dressed and groomed. Eye contact good. Motor activity appropriate. Speech within normal limits. Affect congruent, mood anxious. Thoughts linear, logical, no signs of hallucinations or delusions. Client Response/Progress/Benefit: [] Pt responded well to session AEB sharing and listening attentively to others. Group provided examples of types of support (professional, pets, hobbies, community, spouse, spirituality, co-workers, family, etc) as well as benefits of having social support, including: validation, get perspective, and accountability. Pt also participated in group discussion regarding the barriers to accessing support and pt?s barriers included; isolation, overconfidence, reliance on unhealthy coping, and self-sabotage. Pt participated in experiential activity illustrating the impact communication, boundaries, and patience play in creating healthy support systems. Pt appeared to benefit from increased knowledge of the benefits of social support and greater self-awareness. Pt to continue IOP to prevent decompensation, increase healthy coping, stabilize hallucination, and improve functioning.
--- NOTE | 2025-02-12 11:10 | BH.SGPN.GN ---
Behaviors/Verbalizations/Mental Status: []Client alert and oriented, casually dressed and groomed. Eye contact good. Motor activity appropriate. Speech within normal limits. Affect congruent, mood anxious. Thoughts linear, logical, no signs of hallucinations or delusions. Client Response/Progress/Benefit: [] Pt participated throughout AEB contributing to discussion, providing examples, and taking notes. Pt provided input during discussion on the types of support our supports can provide. Pt able to identify current support system and barriers that get in the way of using supports. Pt reported after identifying what type of supports pt receives, pt gained awareness that pt could benefit from more social and emotional support by continuing to reach out to healthy supports. Pt seemed to benefit from identifying the type of support pt needs to work on improving. Pt recommended to continue IOP tx to promote increase positive self-talk, improve mood stability, and prevent decompensation. Narrative Note: []
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
--- NOTE | 2025-02-18 10:10 | BH.SGPN.GN ---
Behaviors/Verbalizations/Mental Status: []Pt alert and oriented, casually dressed and groomed. Eye contact good. Motor activity appropriate. Speech within normal limits. Affect congruent, mood content. Thoughts linear, logical, no signs of hallucinations or delusions. Client Response/Progress/Benefit: [] Pt receptive to session AEB contributing to group discussion, as well as listening attentively to others, and taking notes. Worked with group to brainstorm the positive and negative aspects of stress on physical and mental health as well as the impact of distress on performance, relationships, and mental health. Pt shared their current personal top stressors to be: grandma and aunt's health, mental health, and finances. Shared when feeling overwhelmed with stress pt tends become angry. Benefited from increased awareness of positive and negative stress as well as how stress impact individuals. Will continue in IOP to prevent decompensation, improve daily functioning, and reduce negative thinking patterns. Narrative Note: []
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
--- NOTE | 2025-02-20 10:10 | BH.SGPN.GN ---
Behaviors/Verbalizations/Mental Status: [] Eye contact is fair to good. Motor activity is appropriate. Appearance is casual. Speech is soft, limited input. Mood is euthymic. Affect is congruent. Thoughts are linear and logical. No evidence of psychosis. Client Response/Progress/Benefit: [] Client was an active participant in group discussion and experiential activity.. Attentive during psychoeducation on resilience. Participated in interactive discussion with peers on the definition of resilience and where it comes from. Group identified that resiliency can be impacted by; past experiences, personality, and current mental health state. Group also worked together to identify the benefits of being resilient and how it is related to mental health. Able to relate experiential activity of group juggle to topics of resilience. Worked well with peers in small group in which they identified factors that contribute to resilience. Benefited from increased awareness of resilience and the factors that contribute to building resilience. Will continue in IOP to prevent decompensation and further promote mood stability. Narrative Note: []
--- NOTE | 2025-02-20 11:10 | BH.SGPN.GN ---
Behaviors/Verbalizations/Mental Status: [] Client alert and oriented, casually dressed and groomed. Eye contact fair. Motor activity appropriate. Speech within normal limits. Affect congruent, mood euthymic . Thoughts linear, logical, no signs of hallucinations or delusions Client Response/Progress/Benefit: [] Client responded well to session AEB completing the resilience worksheet provided. Client participated in the discussion and worked cooperatively with group to identify strategies to enhance each of the components discussed. Client reports belief they already use resilience trait of ?making connections.? Client stated they would like to continue to develop resilience trait of ?taking care of self.? Client seemed to benefit from discussing strategies for improving personal resilience and identifying resilience traits Client already possesses.. Will continue IOP tx to promote mood stability, reduce negative thinking patterns, and increase distress tolerance skills. Narrative Note: []
--- NOTE | 2025-02-21 09:00 | BH.SGPN.GN ---
Behaviors/Verbalizations/Mental Status: [] Eye contact is good. Motor activity is appropriate. Appearance is casual. Speech is Appropriate. Mood is euthymic. Affect is full. Thoughts are linear and logical. No evidence of psychosis. Reviewed daily check in sheet and no reports of suicidal ideations or intent. Client Response/Progress/Benefit: [] Pt participated at times during the group discussions. Attentive. Able to identify mental health wins and moments when she utilized healthy skills. Brief check in this AM which mainly focused on superficial experiences and situational stressors. Overall reports improved functioning and mental health. Progress noted. Benefited from group support, encouragement, and feedback. Will continue in IOP to prevent decompensation, stabilize mood, and increase healthy coping. Behaviors/Verbalizations/Mental Status: [] Eye contact is good. Motor activity is appropriate. Appearance is casual. Speech is Appropriate. Mood is euthymic. Affect is full. Thoughts are linear and logical. No evidence of psychosis. Reviewed daily check in sheet and no reports of suicidal ideations or intent. Client Response/Progress/Benefit: [] Pt participated at times during the group discussions. Attentive. Able to identify mental health wins and moments when she utilized healthy skills. Brief check in this AM which mainly focused on superficial experiences and situational stressors. Overall reports improved functioning and mental health. Progress noted. Benefited from group support, encouragement, and feedback. Will continue in IOP to prevent decompensation, stabilize mood, and increase healthy coping.
--- NOTE | 2025-02-21 10:10 | BH.SGPN.GN ---
Behaviors/Verbalizations/Mental Status: [] Client alert and oriented, casually dressed and groomed. Eye contact good. Motor activity appropriate. Speech within normal limits. Affect congruent, mood euthymic Thoughts linear, logical, no signs of hallucinations or delusions. Client Response/Progress/Benefit: [] Client responded well to session, attentive during psychoeducation on SMART goals (Specific, Measurable, Achievable, Realistic, and Time-bound) and engaged in group experiential activity. Participated in an interactive discussion with peers in which they worked together to define what a goal is and the benefits of having goals. Group identified benefits as; helps MH, improves motivation, improves confidence, and personal growth. Participated in interactive discussion in which group identified barriers to setting goals and following through with goals. Group barriers included health, lack of supports, making excuses, and avoidance. Benefited from increased awareness of benefits and strategies for goal-setting. Will continue in IOP tx to improve mood stability, reduce negative thinking patterns, and improve daily functioning. Narrative Note: []
--- NOTE | 2025-02-21 11:10 | BH.SGPN.GN ---
Behaviors/Verbalizations/Mental Status: [] Client alert and oriented, casually dressed, appropriately groomed. Eye contact good. Motor activity appropriate. Speech within normal limits. Affect congruent, mood euthymic. Thoughts linear, logical, no signs of hallucinations or delusions. Client Response/Progress/Benefit: [] Client was engaged during discussion and willing to complete the worksheet challenging them to develop a personal SMART goal. Client chose the goal of learning one tarot card a week. Client stated this will benefit them by feeling more secure with spirituality. Client identified barriers which included lack of motivation and getting overwhelmed. Identified for lack of motivation they will give themselves rewards. Client receptive to identifying solutions for these barriers and willing to begin working on this goal. Benefited from this group by developing a short-term SMART goal related to mental health. Will continue IOP tx to increase healthy coping, improve daily functioning, and prevent decompensation. Narrative Note: []
--- NOTE | 2025-02-26 09:00 | BH.SGPN.GN ---
Behaviors/Verbalizations/Mental Status: []Eye contact is good. Motor activity is appropriate. Appearance is casual. Speech is Appropriate. Mood is content. Affect is congruent. Thoughts are linear and logical. No evidence of psychosis. Reviewed daily check in sheet and pt denies SI, plan, or intent as of this date 02/26/25. Client Response/Progress/Benefit: [] Pt was an active participant in group discussions. Attentive. Did well to identify 2 mental health wins, which included being willing to accept help from her cousin who gave her new shoes and socks. Additional win noted as being able to challenge herself to set a [id number] with her sister, despite some guilt in doing so. Reports feeling proud of herself as a result. Stressor noted as nack pain. Appeared to benefit from provided support, encouragement, and feedback. Identified areas of progress and skills to maintain gains. Will continue IOP tx to improve mood stability, continue to improve boundaries, and prevent decompensation. Narrative Note: []
--- NOTE | 2025-03-01 10:10 | BH.SGPN.GN ---
Behaviors/Verbalizations/Mental Status: [] Pt alert and oriented, casually dressed and groomed. Eye contact good. Motor activity appropriate. Speech within normal limits. Affect constricted, mood euthymic and anxious. Thoughts linear, logical, no signs of hallucinations or delusions. Client Response/Progress/Benefit: [] Client engaged during group session as evidenced by contributions during group discussions, appearing to listen to others, and taking notes. Client engaged in small group discussion about barriers that keep people from having difficult conversations. Group identified potential reasons individuals avoid difficult conversations which included; feeling uncomfortable, reaction of others, fear, and not in a good place mentally. Group also identified benefits to having crucial conversations. Pt identified that when having crucial conversations, she doesn't want to start conflict. Client seemed to benefit from increased awareness and education about importance of having difficult conversations and recognizing the impact of avoiding such conversations. Client to continue IOP to prevent decompensation, increase healthy coping, and improve functioning. Narrative Note: []
--- NOTE | 2025-03-01 10:26 | BH.MDN_ITS ---
Multi-Disciplinary Note Note 45-min Individual: Time Started:: 09:20 Date: 03/01/25 Purpose of session/treatment goals addressed:: To process current stressors, provide emotional support, and complete a safety plan. Eye Contact:: Good Motor Activity:: Restless Appearance:: Disheveled Speech:: Soft Mood:: Depressed Affect:: Constricted Thoughts:: Linear, Logical and No evidence of hallucinations/delusions noted Staff Interventions:: CBT techniques, mindfulness skills, strengths persp ective and completed risk assessment / safety planning (completed the [facility] Safety Plan) Client Response:: Pt responded well to session, open to meeting with therapist. Pt reports she has not been doing great and shared that I have like two good days and the rest are bad. Pt noted feeling exhausted, somewhat hopeless, and down on herself. Pt shared she has been comparing herself to others who appear like they are managing life well and she has been thinking that she might never learn to overcome her symptoms. Pt receptive to thought challenging and she was able to give herself credit for progress including not relapsing when she injured her back and blocking her ex. Pt stated last night she was having passive SI and she had thoughts of how she could kill herself which scared pt. Pt receptive to making a safety plan which included pt's warning signs (isolating and not wanting to talk to her sister or grandma), coping skills (crocheting, tarot cards, and talking to her supports), and ways to keep her environment safe (giving her grandma meds and avoiding baths if she has thoughts of drowning). Pt was also given information for the local crisis line and the international crisis line. Pt shared that she is does feel like she has hope and wants to make it to the future, but she feels exhausted currently by the work it is taking. Pt encouraged to remind herself of the steps she has already taken and the progress she has made in her sobriety. Risks/Concerns:: Pt reports having passive SI last night with thoughts that she could drown myself which scared pt. Pt denies any intent or plan, but pt shared she is afraid she is not getting better and worries she could end up hospitalized. Receptive to safety plan and future oriented. Meeting with psychiatry today for medication management. Progress Toward Goals/Plan:: Pt reports minimal progress as pt's symptoms of depression, passive SI, and auditory hallucinations are still persisting. Pt acknowledges that she has made progress with utilizing healthy coping skills more consistently and she re-blocked her ex-girlfriend. Pt also reports belief that her medication is not at the correct dosage yet which could be contributing to her plateau in progress. Pt will continue IOP tx to prevent further decompensation, improve daily functioning, and increase distress tolerance skills. Time Stopped:: 10:00
--- NOTE | 2025-03-01 11:10 | BH.SGPN.GN ---
Behaviors/Verbalizations/Mental Status: [] Pt alert and oriented, casually dressed and groomed. Eye contact good. Motor activity appropriate. Speech within normal limits. Affect constricted, mood euthymic and anxious. Thoughts linear, logical, no signs of hallucinations or delusions. Client Response/Progress/Benefit: [] Pt was an active participant, engaged in activities and discussion. Pt able to identify ways they negatively contribute to crucial conversations and pt was engaged during psychoeducation of the different ways to build interpersonal effectiveness skills. Pt and peers practiced mirroring and active listening in partners. Group reviewed [employer] and used the handout to help map out how they would like a crucial conversation in their life to go. Pt shared with group that she wants to have a crucial conversation with aunt due to her starting issues in the family. Pt appeared to benefit from learning and practicing interpersonal effectiveness skills. Pt will continue IOP tx to prevent decompensation, improve daily functioning, and increase distress tolerance skills. Narrative Note: []
--- NOTE | 2025-03-01 11:27 | PCM.BH.PN_ITS ---
Intake Vital Signs 01/18/25 10:28 02/01/25 08:46 03/01/25 11:28 Height 1.7 m 1.7 m 1.7 m Weight: 164.654 kg BP 158/90 H Pulse 82 BH Intake Allergies trazodone Allergy (Mild, Verified 01/18/25 09:26) nightmares lithium Adverse Reaction (Severe, Verified 01/18/25 09:26) lightheaded aripiprazole (From [facility]) Adverse Reaction (Mild, Verified 01/18/25 09:26) nightmares Medications ?Medication ?Instructions ?Recorded ?Confirmed ?Type etonogestrel 68 mg subdermal 1 implant subdermal ONCE 08/11/21 01/18/25 History implant (Nexplanon) buspirone 15 mg tablet 15 mg PO BID 30 days #60 tab s 01/18/25 Rx hydroxyzine HCl 25 mg tablet 25 mg PO BID PRN anxiety #60 tabs 01/18/25 Rx benztropine 0.5 mg tablet 0.5 mg PO BID 30 days #60 ta bs 02/01/25 Rx prazosin 2 mg capsule 4 mg (2 x 2 mg) PO QHS 30 da ys #60 02/01/25 Rx caps lurasidone 40 mg tablet (Latuda) 40 mg PO QPM #30 tabs 02/19/25 Rx mirtazapine 15 mg tablet (Remeron) 30 mg (2 x 15 mg) P O QHS 30 days 02/19/25 Rx #60 tabs cyclobenzaprine 10 mg tablet 10 mg PO TID PRN back kayla n 03/01/25 03/01/25 History dulaglutide 3 mg/0.5 mL 3 mg subcut QWEEK 03/01/25 1 History subcutaneous pen injector (Trulicity) ibuprofen 800 mg tablet 800 mg PO DAILY 03/01/25 History HPI () History of Present Illness History provided by: patient Chief complaint: Suicidal thoughts HPI: -Current psychiatric medications: [] -SUBJECTVE: []. Mood is []. Sleeping []. [] appetite. [] crying spells. [] hopelessness. [] thoughts of harming self []. No thoughts of harming others endorsed. AH/VH []. feeling more suicidal today, hopeless, yesterday was a good day, self identity crisis. Hearing voices saying she is doing things for attention. Last PM, kept seeing people getting hurt. meds are 50/50, [] tolerating medications without side effects Assessment & Plan () Assessment & Plan (1) Bipolar 1 disorder: (2) PTSD (post-traumatic stress disorder): (3) Panic disorder: Medications: Changed From benztropine 0.5 mg PO QHS 30 days 30 tabs 0RF To benztropine 0.5 mg PO BID 30 days 60 tabs 0RF From prazosin 2 mg PO QHS 30 days 30 caps 0RF To prazosin 4 mg (2 x 2 mg) PO QHS 30 days 60 caps 0RF Refilled lurasidone (Latuda) must administer with food (at least 350 calories) 40 mg PO QPM 30 tabs 0RF mirtazapine 30 mg (2 x 15 mg) PO QHS 30 days 60 tabs 0RF
--- NOTE | 2025-03-01 11:27 | PCM.BH.PN ---
Intake Vital Signs 01/18/25 10:28 02/01/25 08:46 03/01/25 11:28 Height 1.7 m 1.7 m 1.7 m Weight: 164.654 kg BP 158/90 H Pulse 82 Intake Visit Reasons: Suicidal ideation Allergies trazodone Allergy (Mild, Verified 01/18/25 09:26) nightmares lithium Adverse Reaction (Severe, Verified 01/18/25 09:26) lightheaded aripiprazole (From [facility]) Adverse Reaction (Mild, Verified 01/18/25 09:26) nightmares Medications ?Medication ?Instructions ?Recorded ?Confirmed ?Type etonogestrel 68 mg subdermal 1 implant subdermal ONCE 08/11/21 01/18/25 History implant (Nexplanon) benztropine 0.5 mg tablet 0.5 mg PO BID 30 days #60 tabs 03/01/25 Rx buspirone 15 mg tablet 15 mg PO BID 30 days #60 tabs 03/01/25 Rx cyclobenzaprine 10 mg tablet 10 mg PO TID PRN back pain 03/01/25 03/01/25 History dulaglutide 3 mg/0.5 mL 3 mg subcut QWEEK 03/01/25 03/01/25 History subcutaneous pen injector (Trulicity) hydroxyzine HCl 25 mg tablet 25 mg PO BID PRN anxiety #60 tabs 03/01/25 Rx ibuprofen 800 mg tablet 800 mg PO DAILY 03/01/25 03/01/25 History lurasidone 60 mg tablet (Latuda) 60 mg PO QPM #30 tabs 03/01/25 Rx mirtazapine 15 mg tablet (Remeron) 30 mg (2 x 15 mg) PO QHS 30 days 03/01/25 Rx #60 tabs prazosin 2 mg capsule 4 mg (2 x 2 mg) PO QHS 30 days #60 03/01/25 Rx caps HPI () History of Present Illness History provided by: patient Chief complaint: Suicidal thoughts HPI: -Current psychiatric medications: Latuda 40 mg, mirtazapine 30 mg, prazosin 4 mg, BuSpar 15 mg twice daily, benztropine 0.5 mg twice daily -SUBJECTVE: Patient reports 2 days of bad day, some days she feels fine and then show up a couple days where she feels really down depressed and hopeless. Notes that yesterday evening she was feeling hopeless and then realized she was thinking about ways she could kill herself. Became very distressed by the fact that those thoughts popped into her head and then went out and had a cigar and used her coping skills which helped. She reports that she has been having the suicidal thoughts today as well however has no active plan and no intent. Was able to/willing to safety plan and reiterated she has no active thoughts of committing suicide and if symptoms were to worsen over the weekend she would call crisis. She notes she has been sleeping better since her prazosin was increased, she has only had 2 nightmares, she is not taking melatonin now and is using sleepy time tea with improvement in her sleep. Has been having problems with her back and was just started on ibuprofen 800 mg daily and Flexeril 10 mg up to 3 times a day as needed but this is her first day. Advised to pay attention to symptoms in relation to Flexeril and patient verbalized understanding. Denies any HI but notes yesterday she kept having intrusive thoughts of other people being hurt or stabbed when she was watching [employer] videos so she had to stop watching them. Has been hearing voices and notes she is having a self identity crisis and is hearing voices saying she is doing things for attention. Overall she feels like her under medications are helpful and does have some good days now which is different than when she first presented but still having significant down days and does not note a specific psychosocial stressor that will cause these down days, discussed medications and patient has found higher doses of Latuda helpful in the past. Patient agreeable to increasing Latuda Exam Mental Status Exam- Psych () Appearance casually dressed, adequately groomed and no apparent distress Attitude cooperative and calm Activity/Motor Behavior psychomotor slowing and other (Slightly decreased eye contact) Speech regular rate and regular volume Mood depressed Affect sad Thought Process linear and logical Thought Content hallucinations (Intermittent auditory hallucinations) Suicidal Ideation passive Homicidal Ideation none Attention intact Concentration intact Sensorium/Orientation awake and alert Memory/Cognition intact Insight fair Judgement fair Assessment & Plan () Assessment & Plan (1) Bipolar 1 disorder: Plan: Overall having improved mood compared to presentation however still having significant down spells with increased SI and hopelessness, reports Latuda helpful in the past and has had doses up to 80 mg. Notes she is taking with food as recommended. Will increase to 60 mg as she has a history of getting muscle cramps with the Latuda so titrating cautiously. Continue benztropine as she has found this helpful for side effects in the past. Patient still finding BuSpar helpful and feels it is keeping her even so we will continue BuSpar, prazosin, mirtazapine. Counseled patient that Flexeril, the muscle relaxer she was prescribed for her back, can have psychiatric side effects and to closely note any change or exacerbation in symptoms in relation to timing of taking this medication and patient verbalizes her understanding and will stop the medication if there are adverse cognitive effects. This does not correlate with her recent mood swings and decreased mood/SI as she has only had this for 1 day but will need to closely pay attention to this correlation moving forward (2) PTSD (post-traumatic stress disorder): Plan: Does find increased dose of processed and to be helpful and is sleeping better and is only had 2 nightmares. She is off melatonin and is drinking sleepy time tea at bedtime which she does feel is helpful as well. Continue other medications (3) Panic disorder: Plan: Still having difficulty with depressed mood and SI however overall patient improved from presentation, medications as above Medications: New lurasidone (Latuda) must administer with food (at least 350 calories) 60 mg PO QPM 30 tabs 0RF Changed From benztropine 0.5 mg PO QHS 30 days 30 tabs 0RF To benztropine 0.5 mg PO BID 30 days 60 tabs 0RF From prazosin 2 mg PO QHS 30 days 30 caps 0RF To prazosin 4 mg (2 x 2 mg) PO QHS 30 days 60 caps 0RF Refilled mirtazapine 30 mg (2 x 15 mg) PO QHS 30 days 60 tabs 0RF benztropine 0.5 mg PO BID 30 days 60 tabs 0RF hydroxyzine HCl 25 mg PO BID PRN 60 tabs 0RF anxiety mirtazapine 30 mg (2 x 15 mg) PO QHS 30 days 60 tabs 0RF buspirone 15 mg PO BID 60 tabs 0RF 30 days prazosin 4 mg (2 x 2 mg) PO QHS 30 days 60 caps 0RF Charges/Coding Behavior Health Behavior Health EST Pt E/M: 55448 Est Pt Level IV
== END 2025-03-01 23:59 ==
LOC: BHIOP 08:06
PROVIDERS: PCP Family Medicine; Referring Provider Internal Medicine; Visit Provider Internal Medicine
DX: F31.9 Bipolar disorder, unspecified (principal); F41.0 Panic disorder [episodic paroxysmal anxiety]; F43.10 Post-traumatic stress disorder, unspecified
CPT/HCPCS: H2012; H2020; S9480; 90832; 90834

== ENCOUNTER 2025-03-04 08:32 | Outpatient (RCR) | payer MEDICAID, SELFPAY ==
--- NOTE | 2025-03-05 10:05 | BH.SGPN.GN ---
Behaviors/Verbalizations/Mental Status: [] Eye contact is good. Motor activity is appropriate. Appearance is casual. Speech is Appropriate. Mood is anxious and depressed. Affect is congruent. Thoughts are linear and logical. No evidence of psychosis Client Response/Progress/Benefit: [] Pt was an active participant during group discussions and group activities. This portion of group was very psychoeducation heavy and pt was attentive during psychoeducation. Engaged during activity in which they identified which type of foods (i.e. carbs, sugar, salt, fast food, caffeine, etc) they seek out when sad, tired, angry, stressed, anxious, etc. Pt was able to identify the impact that certain foods have on their mental health through group example which was beneficial. Benefited from increased awareness of the connection between nutrition and mental health. Will continue in IOP to prevent decompensation, improve healthy coping and mood stability, and improve functioning. Narrative Note: []
--- NOTE | 2025-03-05 11:10 | BH.SGPN.GN ---
Behaviors/Verbalizations/Mental Status: []Pt alert and oriented, disheveled appearance. Eye contact good. Motor activity appropriate. Speech within normal limits. Affect congruent, mood euthymic and anxious. Thoughts linear, logical, no signs of hallucinations or delusions. Client Response/Progress/Benefit: [] Pt was an active participant during group discussions and group activities. This portion of group was very psychoeducation heavy and pt was attentive during psychoeducation. Engaged during activity in which they identified their own maintenance cycles with food and how it impacts their mental health symptoms. Pt and peers identified barriers to breaking these cycles as well as ways to combat barriers. Pt stated she wants to work on finding healthier ?one pot? meals. Benefited from increased awareness of the connection between nutrition and mental health and from identifying strategies. Will continue in IOP to promote mood stability, increase distress tolerance, and improve daily functioning. Narrative Note: []
--- NOTE | 2025-03-05 15:01 | BH.MDN ---
Multi-Disciplinary Note Note 30-min Individual: Time Started:: 09:22 Date: 03/05/25 Purpose of session/treatment goals addressed:: Purpose of session was to address tx plan goal #2 obj #1. Additional goal to begin d/c planning. Eye Contact:: Good Motor Activity:: Appropriate Appearance:: Casual Speech:: Appropriate Mood:: Euthymic and Anxious Affect:: Congruent Thoughts:: Linear, Logical and No evidence of hallucinations/delusions noted Staff Interventions:: thought challenging, CBT techniques, discharge planning, strengths perspective and other (bad day coping plan creation) Client Response:: Pt responded well to session, open to meeting with therapist. Pt reports she had been struggling some last week and requested to meet with another program therapist while this therapist was out of the office. Explained that she has been ?getting in my own head? after watching a TikTok video that stated ?you can?t cure borderline personality disorder?. Reports this led pt to feel more depressed, hopeless, and begin experiencing passive thoughts of as she does not want to struggle the rest of her life. Therapist validated and normalized pt?s emotions, while also gentling challenging. Worked with pt to identify what ?stable? means and normalize the experience of mood instability and stressors as part of common humanity. Pt responded well to this and went on to explain that outside of this trigger, she had actually had a positive weekend with supports. Described celebrating her birthday with family and engaging in gratitude practices throughout the weekend as well. Pt did noted waking up feeling irritable yesterday and began to beat herself up for this, but then challenged herself to let her supports know she needed space and took a shower instead. [place] somewhat better afterwards. Pt noted wanting to develop a plan for how to manage the days in which she wakes up feeling on edge or off. Receptive of spending the remainder of session creating a ?Coping Plan for Bad Days? which included safe places, coping skills, and ways to communicate needs with her supports. Risks/Concerns:: Pt denies any active SI, plan, or intent. Pt is future oriented and protective factors noted Progress Toward Goals/Plan:: Progress noted compared with last week. Did well to thought challenge in session and reports increased insight into her own mental health sx and triggers. Pt is more actively applying skills, communicating needs with supports, and challenging herself to advocate for her boundaries. Reports continued progress with self-care and engaging in activities she enjoys, while also completing daily responsibilities. Improved mood stability and reduced sx of PTSD as well. Pt will continue IOP to maintain gains finalize d/c plan prior to discharge next week. Time Stopped:: 09:55
--- NOTE | 2025-03-07 09:00 | BH.SGPN.GN ---
Behaviors/Verbalizations/Mental Status: [] Pt alert and oriented, Casually dressed and groomed. Eye contact good. Motor activity appropriate. Speech within normal limits. Affect congruent, mood calm. Thoughts linear, logical, no signs of hallucinations or delusions. Reviewed pt?s symptom tracker today, denies suicidal ideation, plan, and intent.03/07/25 Client Response/Progress/Benefit: []Pt was an active participant in group discussions. Attentive. Per patients daily symptom tracker, pt indicates a 1/5 for depression and a 0.5/5 for anxiety, with 5 being severe. Pt shared her mental health positive as doing better than the previous week. Pt reported feeling fixated on thoughts of , leading to depressive symptoms but was able to utilize coping mechanisms such as listening to music to reduce these thoughts. Pt's second mental health positive was feeling that her medication was increased to a dose where she is feeling the positive benefits. Pt's stressor was waiting for results from an aunt's Dr's appointment to see whether she would need surgery. Pt reported feeling anxious but optimistic. Pt also reported another stressor as being diagnosed as pre-diabetic, but feels confident that she can make healthy lifestyle changes to reverse it. Pt was supportive and attentive to others in the group. Pt seemed to benefit from support from peers. Will continue IOP tx to promote healthy coping mechanisms, improve confidence, and prevent decompensation.
--- NOTE | 2025-03-07 10:00 | BH.SGPN.GN ---
Behaviors/Verbalizations/Mental Status: [] Eye contact is good. Motor activity is appropriate. Appearance is casual. Speech is Appropriate. Mood is anxious. Affect is congruent. Thoughts are linear and logical. No evidence of psychosis. Client Response/Progress/Benefit: [] Pt engaged in session AEB client listening attentively to peers and providing input. Attentive and contributed to discussion as group worked on defining?self-confidence?and identifying benefits of?self-confidence which included; increased self-esteem, improved relationships, increased resilience, better adaptive coping, stronger boundaries, helps us try new tasks, decreased depression, more hopeful, and more creative. Also participated during interactive discussion on factors that impact one's self confidence such as trauma, upbringing, economic status, and current/past relationships. Benefited from increased education on?self-confidence?and what effects it. Pt will continue IOP to prevent decompensation, decrease depression, provide support, and increase healthy coping.
--- NOTE | 2025-03-07 11:10 | BH.SGPN.GN ---
Behaviors/Verbalizations/Mental Status: [] Client alert and oriented, casually dressed and groomed. Eye contact good. Motor activity appropriate. Speech within normal limits. Affect congruent, mood content. Thoughts linear, logical, no signs of hallucinations or delusions. Client Response/Progress/Benefit: [] Pt engaged in session AEB client listening attentively to peers and providing input. Attentive and contributed to discussion as group worked on identifying thought patterns and behaviors that negatively effect self-confidence. Pt identified behaviors that effect their confidence as: self-pity and procrastination. Engaged in confidence building activity and worked with the group to identify strategies for improving self-confidence. Pt identified plans to begin small boundary setting steps. Benefited from increased education on self-confidence building skills. Pt will continue IOP tx to increase self-confidence, improve emotional regulation skills, and prevent decompensation. Narrative Note: []
--- NOTE | 2025-03-08 09:00 | BH.SGPN.GN ---
Behaviors/Verbalizations/Mental Status: [] Eye contact is good. Motor activity is appropriate. Appearance is casual. Speech is Appropriate. Mood is anxious. Affect is congruent. Thoughts are linear and logical. No evidence of psychosis. Reviewed daily check in sheet and no reports of suicidal ideations or intent. Client Response/Progress/Benefit: [] Pt participated at times during the group discussions. Attentive. ? had four panic attacks yesterday?. Unable to identify a trigger. Utilized PRN medications after attempting coping strategies. Proud of herself for communicating her distress to her GMA and being vulnerable around others rather than isolating. ? I didn?t complete freak out?. Insight that history of isolating when distressed ?made things worse?. Despite struggles she believes she is making progress. Regression noted. Benefited from group support, encouragement, and feedback. Will continue in IOP to prevent decompensation, increase healthy coping, stabilize mood, and improve functioning. Narrative Note: []
--- NOTE | 2025-03-08 10:10 | BH.SGPN.GN ---
Behaviors/Verbalizations/Mental Status: [] Motor activity is appropriate. Appearance is casual. Speech is Appropriate. Mood is euthymic. Affect is full. Thoughts are linear and logical. No evidence of psychosis. Client Response/Progress/Benefit: []Pt was an engaged participant AEB listening attentively to others, taking notes, and providing feedback in small group discussions. Attentive during psychoeducation AEB by note taking and providing some input. Pt worked along with peers in small groups to define inappropriate guilt and appropriate guilt. Interactive discussion on examples of both inappropriate and appropriate guilt. Pt able to connect impact inappropriate guilt can have on MH. Benefited from increased awareness of guilt and the differences between appropriate and inappropriate guilt. Pt to continue IOP tx to prevent decompensation, gain healthy coping skills, and increase overall functioning. Narrative Note: []
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
--- NOTE | 2025-03-13 09:05 | BH.SGPN.GN ---
Behaviors/Verbalizations/Mental Status: []Eye contact is good. Motor activity is appropriate. Appearance is casual. Speech is Appropriate. Mood is content. Affect is congruent. Thoughts are linear and logical. No evidence of psychosis. Reviewed daily check in sheet and pt denies SI, plan, or intent as of this date 03/13/25. Client Response/Progress/Benefit: [] Pt was an active participant in group discussions. Attentive. Did well to identify 2 mental health wins, which included being able to support her grandmother as she grieves the anniversary of her grandfathers . Additional win noted as making it to group after being sick earlier in the week. Stressor noted as upcoming IOP d/c this week. Appeared to benefit from provided support, encouragement, and feedback. Identified areas of progress and skills to maintain gains. Will continue IOP tx to improve mood stability, develop healthy coping repertoire, and prevent decompensation. Narrative Note: []
--- NOTE | 2025-03-13 10:10 | BH.SGPN.GN ---
Behaviors/Verbalizations/Mental Status: []Pt alert and oriented. Casually dressed and groomed, eye contact good. Motor activity appropriate. Speech within normal limits. Affect congruent. Mood calm. Thoughts linear, logical, no signs of hallucinations or delusions. Client Response/Progress/Benefit: [] Pt was an active participant, taking notes and engaging in group discussion and activity. Connected with the topic of pitfalls and participated in group discussion about barriers that prevent from choosing a healthier path to mental wellness. Pt participated in discussion on pitfalls, what they are, and ways that we stay stuck in them. Group worked together to identify examples of internal and external pitfalls, including depression, isolation, and suicidal thoughts. Pt benefited from group and psychoeducation on pitfalls as pt learned to better identity potential barriers to improving mental health symptoms. Pt was an active participant in activity meant to demonstrate pitfalls and how to cope with them. Pt will continue IOP tx decrease negative thinking patterns, improve daily functioning, and prevent decompensation.
--- NOTE | 2025-03-13 10:10 | BH.SGPN.GN ---
Behaviors/Verbalizations/Mental Status: []Pt alert and oriented, neatly dressed and groomed. Eye contact good. Motor activity appropriate. Speech within normal limits. Affect congruent, mood anxious. Thoughts linear, logical, no signs of hallucinations or delusions. Client Response/Progress/Benefit: [] Pt was an active participant AEB taking notes and engaging in group activity. Connected with the topic of pitfalls and listened to group discussion on barriers that prevent from choosing a healthier path to mental wellness. Group worked together to identify examples of personal pitfalls. These examples included; having unrealistic expectations, not trusting, not asking for help, and shutting down. Pt benefited from group as pt learned to better identify potential barriers to improving mental health symptoms. Pt will continue IOP tx to improve emotion regulation, challenge negative and distorted thoughts, and prevent decompensation.
--- NOTE | 2025-03-13 11:10 | BH.SGPN.GN ---
Behaviors/Verbalizations/Mental Status: []Client alert and oriented, casually dressed and groomed. Eye contact good. Motor activity appropriate. Speech within normal limits. Affect congruent, mood content. Thoughts linear, logical, no signs of hallucinations or delusions. Client Response/Progress/Benefit: [] Pt receptive of session, engaged throughout AEB Pt actively listening and contributing to discussion as well as taking notes.? Pt participated in the experiential activity and did well to communicate ideas with peers and manage emotions. Pt attentive as group processed how the emotions and perspective of the group impacted the activity. Pt was highly encouraging during the activity which helped peers. Group worked together to identify different coping skills to help manage pitfalls. Pt identified pitfalls they struggle with being co-dependent, the urge to run away, and chronic SI. Pt plans to work on their pitfall by ?challenging perspective and seeing the good.? Benefited from identifying personal pitfalls and strategies to overcome these pitfalls. Pt will discharge from IOp tx as pt has accomplished her tx goals and no longer meets criteria for IOP level of care. Narrative Note: []
--- NOTE | 2025-03-14 09:00 | BH.SGPN.GN ---
Behaviors/Verbalizations/Mental Status: [] Eye contact is good. Motor activity is appropriate. Appearance is casual. Speech is Appropriate. Mood is euthymic. Affect is full. Thoughts are linear and logical. No evidence of psychosis. Reviewed daily check in sheet and no reports of suicidal ideations Client Response/Progress/Benefit: [] Pt participated at times during the group discussions. Attentive. Daily symptom tracker notes 06/06 for anxiety. Shared that she is set to discharge successfully from [facility] today. ? I made it through the program?. Shared that she is functioning more effectively since entering [facility] and believes that her mood and sleep are stable. She is excited about upcoming job opportunities. Progress noted. Benefited from group support, encouragement, and feedback. Will be discharged from [facility] today. Narrative Note: []
--- NOTE | 2025-03-14 10:15 | BH.SGPN.GN ---
Behaviors/Verbalizations/Mental Status: []Pt alert and oriented, neatly dressed and groomed. Eye contact good. Motor activity appropriate. Speech within normal limits. Affect congruent, mood euthymic. Thoughts linear, logical, no signs of hallucinations or delusions. Client Response/Progress/Benefit: [] Pt responded well to session, contributing to discussion and engaged during the activity. Group identified the benefits of change which included: increased confidence, progressing towards goals, and improving mental and physical health. Worked with the group to identify barriers to change, which included: uncomfortable emotions such as anxiety, lack of energy, lack of support, and fear of the unknown. Pt participated along with group in activity where they identified and discussed the emotions related to change. Benefited from increased awareness and understanding of emotions, benefits, and barriers related to change. Will discharge from IOP tx today as pt has accomplished her tx goals and no longer meets? criteria for IOP level of care. ? Narrative Note: []
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
== END 2025-03-14 12:17 | disposition home or self-care (01) ==
LOC: BHIOP 08:32
PROVIDERS: PCP Family Medicine; Referring Provider Internal Medicine; Visit Provider Internal Medicine
DX: F31.9 Bipolar disorder, unspecified (principal); F43.10 Post-traumatic stress disorder, unspecified; F41.0 Panic disorder [episodic paroxysmal anxiety]
CPT/HCPCS: 36415; 80053; 80061; 83036; 84439; 84443; 86376; H2012; H2020; S9480; 90832

== ENCOUNTER → 2025-03-04 | Outpatient (CLI) | payer MEDICAID, SELFPAY ==
[2025-03-04 14:31] LABS: Albumin, Serum 4.1 g/dL (3.5-5.0); Alkaline Phosphatase 125 U/L (35-104); Chloride 104 mmol/L (98-108); Potassium 4.2 mmol/L (3.3-5.1)
[2025-03-04 15:32] LABS: Cholesterol 138 mg/dL (<=200); Low Density Lipoprotein Calc. 87 mg/dL; Triglycerides 98 mg/dL; Very Low Density Lipoprotein 20 mg/dL (5-40); cholesterol:hdl ratio screen 4.21
[2025-03-04 15:53] LABS: AST(SGOT) 17 U/L (<=31); Alanine Aminotransfer ALT/SGPT 16 U/L (<=34); Anion Gap 13 (5-15); BUN 16 mg/dL (4-19); BUN/Creat Ratio 20.8 RATIO (10-20); Calcium,Total 9.4 mg/dL (7.6-11.0); Carbon Dioxide 21.0 mmol/L (21.0-32.0); Globulin 3.6 g/dL (2.2-4.2); Glucose 87 mg/dL (70-99)
== END | disposition home or self-care (01) ==
LOC: LAB 11:41
PROVIDERS: PCP Family Medicine; Referring Provider Nurse Practitioner Family; Visit Provider Nurse Practitioner Family
DX: Z13.1 Encounter for screening for diabetes mellitus (principal); Z68.43 Body mass index [BMI] 50.0-59.9, adult; Z13.220 Encounter for screening for lipoid disorders
CPT/HCPCS: 36415; 80053; 80061; 83036; 84439; 84443; 86376

== ENCOUNTER 2025-03-21 08:00 | Outpatient (RCR) | payer MEDICAID, SELFPAY ==
--- NOTE | 2025-03-21 14:00 | BH.SGPN.GN ---
Behaviors/Verbalizations/Mental Status: []Client alert and oriented, casually dressed and groomed. Eye contact good. Motor activity appropriate. Speech within normal limits. Affect congruent, mood euthymic. Thoughts linear, logical, no signs of hallucinations or delusions. Client Response/Progress/Benefit: []Pt responded well to session AEB sharing and listening attentively to others. Pt reports following up with therapy, psychiatry, and pt reports she is taking her medications consistently. Pt stated using reframing, communicating boundaries, and affirmations as primary coping skills used this past week. Pt participated in group discussion defining vulnerability, how and why we avoid it, and the benefits. Pt was an active participant and provided personal examples of being vulnerable and the positive things that came with this. Pt stated that pt would like to work on being vulnerable this week by attending a new AA meeting. Will continue aftercare to maintain gains and prevent decompensation. Narrative Note: []
--- NOTE | 2025-03-21 15:00 | BH.MTP ---
Master Treatment Plan Patient Information Program Physician:: Dr. Dunia Ordonez Primary Therapist:: JEANINE Walsh Psychiatric Diagnoses Psychiatric Diagnoses:: Bipolar 1 disorder; panic disorder, PTSD Diagnosis Code(s):: F31.3 Estimated LOS Estimated LOS (in weeks):: 8 Problem/Goal #1 Problem/Goal #1 Stated Goal:: client will maintain or see a reduction in symptoms AEB client score on the DSM 5 cross-cutting measure and improve client's daily functioning. Objectives Objective #1: Stated Objective: Client will continue to consistently apply healthy coping skills to maintain progress made in IOP tx. Interventions: Through group therapy, client will review warning signs and triggers as well as healthy coping skills learned in IOP tx to successfully maintain gains while transitioning into outpatient therapy. Discharge Criteria: Client will have accomplished this goal when client's score on the DSM-5 cross-cutting measure has maintained or reduced over a 8 week period. Target Date: 05/30/25 Review Date: 04/18/25 Objective #2: Stated Objective: Client will learn and utilize 2-3 maintenance strategies to prevent decompensation from original IOP DSM-5 scores. Interventions: Through group therapy, client will be provided with education on healthy maintenance behaviors, relapse prevention techniques, and healthy coping strategies. Discharge Criteria: Client will have accomplished this goal when can report using at least 2 maintenance skills to prevent decompensation compared to original IOP DSM-5 scores Target Date: 05/30/25 Review Date: 04/18/25
== END 2025-03-31 23:59 ==
LOC: BHOG 08:00
PROVIDERS: PCP Family Medicine; Referring Provider Student in an Organized Health Care Education/Training Program; Visit Provider Student in an Organized Health Care Education/Training Program
DX: F31.9 Bipolar disorder, unspecified (principal); F43.10 Post-traumatic stress disorder, unspecified; F41.0 Panic disorder [episodic paroxysmal anxiety]
CPT/HCPCS: 90853

== ENCOUNTER 2025-04-01 08:08 | Outpatient (RCR) | payer MEDICAID, SELFPAY ==
--- NOTE | 2025-04-04 14:00 | BH.SGPN.GN ---
Behaviors/Verbalizations/Mental Status: []Pt alert and oriented, casually dressed and appropriately groomed. Eye contact good. Motor activity appropriate. Speech within normal limits. Affect congruent, mood euthymic. Thoughts linear, logical, no signs of hallucinations or delusions. Client Response/Progress/Benefit: []Client active participant in group session AEB providing contributions to group discussion. Client reported they have been following through with counseling and medication consistency. Client identified utilizing several different coping skills to help continue to regulate emotions and challenge thoughts. Skills included: opposite action, tarot, and reaching out to healthy supports. Client attentive to psychoeducation about gratitude and provided contributions throughout. Client created gratitude plan for the week, this included reflecting on things she enjoys about her body. Client seemed to benefit from learning about gratitude and creating a week gratitude plan. Pt to continue IOP to promote utilization of healthy coping skills, challenge distortions, and prevent decompensation. Narrative Note: []
--- NOTE | 2025-04-18 10:36 | BH.MTP_ITS ---
Treatment Plan Review Demographics Date of Admission:: 03/21/25 Date of Treatment Plan Review:: 04/18/25 Admitting Diagnoses:: Bipolar 1 disorder; panic disorder, PTSD Current Diagnoses:: Bipolar 1 disorder; panic disorder, PTSD Patient Status Patient's Response to Treatment:: Pt responding well to treatment AEB pt's consistent attendance, active engagement in group discussions, follow up with outpatient providers, and reporting use of skills outside treatment environment. Pt utilizes IOP aftercare to process current stressors, maintain mood stability, continue to improve boundaries, practice giving herself credit for daily accomplishments, continue to work on challenging negative core beliefs and unrealistic expectations of self, and identify more adaptive coping strategies. Status of Current Problems and Symptoms: Ongoing stressors include maintaining progress made in IOP, managing her emotions, and continuing to improve her ability to manage PTSD triggers, also actively maintaining healthy boundaries. Pt self-reports she has moments of negative thinking, and anxiety, but it is still manageable. Progress Problem #1: Problem Name:: Pt will maintain or decrease symptoms from IOP admission data. Status of Goals:: Obj 1 - ongoing work encouraged- Pt has been able to maintain gains made in IOP per self-report; pt’s DSM-5 scores are 53% lower than IOP admission. 63% decrease in depressive symptoms and 30% decrease in anxiety when compared to IOP admission scores. Obj 2 - complete with ongoing work encouraged. Pt has been consistently reporting self-care, thought challenging, grounding, and using healthy coping skills. She struggles at times with r ecognizing and challenging negative thoughts; however, pt is continuing to make consistent strides in better challenging and replacing these thoughts. Team Recommendations:: Recommended client continue IOP aftercare group to show maintenance of progress. Will continue to encourage client to attend regular outpatient counseling and psychiatry appointments as well.
== END 2025-05-01 23:59 ==
LOC: BHOG 08:08
PROVIDERS: PCP Family Medicine; Referring Provider Student in an Organized Health Care Education/Training Program; Visit Provider Student in an Organized Health Care Education/Training Program
DX: F31.9 Bipolar disorder, unspecified (principal); F43.10 Post-traumatic stress disorder, unspecified; F41.0 Panic disorder [episodic paroxysmal anxiety]
CPT/HCPCS: 90853